=== PATIENT | male | born 1940 | race American Indian/Alaskan Native ===

== ENCOUNTER 2023-01-01 08:23 | Outpatient (CLI) | payer MEDICARE, OTHER, SELFPAY ==
[2023-01-01 09:03] LABS: Prothrombin Time 23.6 Seconds (11.1-14.7)
[2023-01-01 09:04] LABS: Partial Thromboplastin Time 42.9 SECONDS (22.3-36.8)
[2023-01-01 09:05] LABS: Anion Gap 12 mmol/L (8-16); Blood Urea Nitrogen 22 mg/dL (9-20); Calcium 9.9 mg/dL (8.4-10.2); Carbon Dioxide 26 mmol/L (22-30); Chloride 100 mmol/L (98-107); Estimated Glomerular Filt Rate 34; Glucose 108 mg/dL (65-110); Potassium 4.9 mmol/L (3.4-5.0); Sodium 138 mmol/L (137-145)
== END 2023-01-01 08:24 | disposition home or self-care (01) ==
LOC: ANHSURGERY 08:31
PROVIDERS: Anesthesiology; PCP Family Medicine; Visit Provider Urology
DX: N28.9 Disorder of kidney and ureter, unspecified (principal); R33.9 Retention of urine, unspecified; Z01.818 Encounter for other preprocedural examination
CPT/HCPCS: 36415; 80048; 85610; 85730

== ENCOUNTER 2023-01-06 01:45 | Day surgery (SDC) | payer MEDICARE, OTHER, SELFPAY ==
[2022-12-31 15:19] VITALS: BMI 29.2
--- NOTE | 2022-12-31 15:38 | PC.NURSE ---
PRE-OP INSTRUCTIONS, PLEASE READ CAREFULLY Report to the Outpatient Waiting Room, entrance under the green pavilion located off [facility], at time _1100_ on date _01/06/23_. Planned Procedure Time: _1 PM_. Time changes happen often and if your time is changed the preop area will call you the afternoon before. - You and your visitor will be asked to self-screen and do not enter if you have any COVID symptoms. - A mask is optional within the hospital at this time. Patients may have clear liquids (water, carbonated beverages, clear teas, apple juice) until 3 hours prior to surgery (1000 AM) with a maximum of 20 ounces. - No food from midnight until time of surgery Take the following medications with a SIP of water the morning of surgery: _OXYBUTYNIN, TAMSULOSIN_ DO NOT STOP ANY OF YOUR OTHER PRESCRIPTION MEDICATIONS PRIOR TO SURGERY ?EXCEPT THE FOLLOWING Medications to discontinue - _PT STATES STOPPING XARELTO 12/29/[address] WINSLOW'S INSTRUCTIONS_ Medications to discontinue per ANESTHESIA - _APPLE CIDER VINEGAR 3 DAYS PRIOR TO SURGERY, Date to take last dose 01/01/23_ Please no make-up, nail spanish, hairspray, perfume, deodorant, or body powder the day of surgery. No jewelry (including any body piercings) or valuables the day of surgery, leave them at home. Please take a shower or bath the night before, or the morning of, surgery with an antibacterial soap. Wear comfortable, loose fitting clothing. - Jewelry must be removed prior to entering the operating room. Rings and piercings that are not removed may be cut off. - The hospital will not accept responsibility for valuables. - Please leave all valuables, including medications, at home the day of surgery. If you are going home after surgery, a licensed entry driver operator must drive you home. - NO public transportation without another adult if you receive anesthesia. - We recommend that an adult stay with you for 24 hours following discharge. - We also recommend that you do not drive, make important decision, drink alcoholic beverages, or take any drugs that were not prescribed by your health care provider for at least 24 hours after your discharge time. Follow any additional instructions given to you from your surgeon. If you or anyone in your household have experienced Covid symptoms in the past week, please notify your surgeon or the nurse liaison at the phone number below for possible testing. Telephone instructions given to _PATIENT_and asked if any additional questions and then verbalized understanding. Patient advised to call surgeon office or pre surgery nurse liaison [phone] if any additional questions.
--- NOTE | 2022-12-31 15:45 | PC.NURSE ---
PRE-OP INSTRUCTIONS, PLEASE READ CAREFULLY Report to the Outpatient Waiting Room, entrance under the green pavilion located off [facility], at time _1100_ on date _01/06/23_. Planned Procedure Time: _1 PM_. Time changes happen often and if your time is changed the preop area will call you the afternoon before. - You and your visitor will be asked to self-screen and do not enter if you have any COVID symptoms. - A mask is optional within the hospital at this time. Patients may have clear liquids (water, carbonated beverages, clear teas, apple juice) until 3 hours prior to surgery with a maximum of 20 ounces. - No food from midnight until time of surgery Take the following medications with a SIP of water the morning of surgery: _OXYBUTYNIN, TAMSULOSIN, PAIN PILL IF NEEDED_ DO NOT STOP ANY OF YOUR OTHER PRESCRIPTION MEDICATIONS PRIOR TO SURGERY ?EXCEPT THE FOLLOWING Medications to discontinue _PT STATES STOPPING XARELTO 12/29/[address] WINSLOW'S INSTRUCTIONS_ Medications to discontinue per ANESTHESIA - _APPLE CIDER VINEGAR 3 DAYS PRIOR TO SURGERY, Date to take last dose 01/01/23_ Please no make-up, nail maltese, hairspray, perfume, deodorant, or body powder the day of surgery. No jewelry (including any body piercings) or valuables the day of surgery, leave them at home. Please take a shower or bath the night before, or the morning of, surgery with an antibacterial soap. Wear comfortable, loose fitting clothing. - Jewelry must be removed prior to entering the operating room. Rings and piercings that are not removed may be cut off. - The hospital will not accept responsibility for valuables. - Please leave all valuables, including medications, at home the day of surgery. If you are going home after surgery, a licensed school boat driver must drive you home. - NO public transportation without another adult if you receive anesthesia. - We recommend that an adult stay with you for 24 hours following discharge. - We also recommend that you do not drive, make important decision, drink alcoholic beverages, or take any drugs that were not prescribed by your health care provider for at least 24 hours after your discharge time. Follow any additional instructions given to you from your surgeon. If you or anyone in your household have experienced Covid symptoms in the past week, please notify your surgeon or the nurse liaison at the phone number below for possible testing. Telephone instructions given to _PATIENT_and asked if any additional questions and then verbalized understanding. Patient advised to call surgeon office or pre surgery nurse liaison [phone] if any additional questions.
--- NOTE | 2023-01-06 11:24 | WPDHPUPDATE1 ---
History and Physical Update Update Date/Time: 01/06/23 11:24 History and Physical has been reviewed, including an updated exam of the patient. There are NO changes in the patient's condition. Risks, benefits, and alternatives have been discussed and questions answered. Patient agrees to proceed with procedure. Proceed with cystoscopy
[2023-01-06 11:39] VITALS: BP 102/75; PULSE 97; RESP 18; TEMP 36.3; O2SAT 95
[2023-01-06] MEDS: LACTATED RINGERS 1,000 ML 30 ML IV CONT (11:51)
[2023-01-06 12:06] LABS: INR 1.1; Prothrombin Time 14.3 Seconds (11.1-14.7)
[2023-01-06 12:07] LABS: Partial Thromboplastin Time 28.8 SECONDS (22.3-36.8)
--- NOTE | 2023-01-06 12:44 | WPDHPUPDATE1 ---
History and Physical Update Update Date/Time: 01/06/23 12:44 History and Physical has been reviewed, including an updated exam of the patient. There are NO changes in the patient's condition. Risks, benefits, and alternatives have been discussed and questions answered. Patient agrees to proceed with procedure. Proceed with cystoscopy
[2023-01-06] MEDS: ceFAZolin 2 GM/D5W 50 ML 2 GM/50 ML BAG IVPB (13:02)
[2023-01-06] MEDS: LIDOCAINE HCL 2% GEL UROJET 10 ML PKG MUCOUS MEM (13:28)
--- NOTE | 2023-01-06 13:31 | P.OP_ITS ---
Procedure Note - Detailed Date of Procedure 01/06/23 Pre-op Diagnosis urinary retention Post-op Diagnosis Same (Mucosal irregularity-catheter irritation versus malignancy) Procedure Performed Cystoscopy with bladder biopsy and fulguration Surgeon Anirudh Herbert MD Anesthesia General Findings Prostate does not appear obstructive, irregularity posterior wall secondary to catheter versus malignancy Description of Procedure Patient is taken the operative suite correctly identified. Once anesthesia was obtained was placed in the dorsal lithotomy position and prepped and draped usual sterile fashion. Twenty-two Divehi scope inserted the bladder direct vision. There were no urethral strictures at this time. External sphincter was intact. Prostate does not appear overly obstructive at this point. Upon entering the bladder has marked trabeculation and some typical catheter related changes along the posterior wall. Given his prior hematuria and this irregularity we decided to biopsy this area. Cold cup biopsy was used to biopsy the irregularity. Ball electrode was used for hemostasis. Scope was removed. 2% viscous lidocaine was inserted urethra and a 16 Divehi Gil was placed with 10 cc in the balloon. He is taken recovery stable condition. Plan is to remove the catheter in the next day or 2. Further recommendations pending his pathology report. This completes dictation. Please send a copy of op note to my office. Estimated Blood Loss 0 Drains Yes Packing No Pathology Yes Complications No immediate complications Condition Stable Disposition PACU
[2023-01-06 13:40] VITALS: BP 98/60; PULSE 74; RESP 16; O2SAT 95
[2023-01-06] MEDS: fentaNYL CITRATE INJ (*CRX) 100 MCG/2 ML VIAL 25 MCG IV PUSH ×4 (13:54→14:00)
[2023-01-06 14:10] VITALS: BP 105/62; PULSE 79; RESP 14
[2023-01-06] MEDS: oxyCODONE HCL (*CRX) 5 MG TAB IR PO (14:28)
[2023-01-06 14:40] VITALS: BP 110/65; PULSE 88; RESP 14
[2023-01-06 15:00] VITALS: BP 108/66; PULSE 75; RESP 14
== END 2023-01-06 15:10 | disposition home or self-care (01) ==
PROVIDERS: Anesthesiology; PCP Family Medicine; Visit Provider Urology
PROC: 0TJB8ZZ Inspection of Bladder, Via Natural or Artificial Opening Endoscopic (ICD-10-PCS; CPT 52000; principal; 2023-01-06 13:00)
DX: C67.4 Malignant neoplasm of posterior wall of bladder (principal); R33.9 Retention of urine, unspecified; Z85.46 Personal history of malignant neoplasm of prostate; Z92.3 Personal history of irradiation
CPT/HCPCS: 52204; 36415; 85610; 85730; 88305; A9270; J0690; J2704; J3010; J7120

== ENCOUNTER 2023-01-09 00:07 | Emergency (ER) | payer MEDICARE, OTHER, SELFPAY ==
[2023-01-09] VITALS (25 sets, daily range): BP systolic 110–157; BP diastolic 41–81; PULSE 60–69; RESP 14–18; TEMP 36.4; O2SAT 93–100
--- NOTE | 2023-01-09 02:53 | ED.MALEGU ---
HPI - Male Genitourinary General Chief complaint: Urogenital-Male <Clarice Kaur PA-C - Last Filed: 01/09/23 02:57> Stated complaint: unable to urinate <Clarice Kaur PA-C - Last Filed: 01/09/23 02:57> Time Seen by Provider: 01/09/23 02:39 <Clarice Kaur PA-C - Last Filed: 01/09/23 02:57> History of Present Illness HPI Narrative: 82-year-old male whose chronically anticoagulated with Xarelto reports for evaluation for urinary retention bladder fullness, and bleeding from his urethra since 0030 today. Patient states approximately 1 week ago, he went to [facility] emergency department for urinary retention. He had a Gil placed at that time and followed up with Dr. Valeriano moore who performed a cystoscopy on the patient 2 days ago. Per the patient, the cystoscopy did not show any significant results to explain why the patient is having bladder retention. He had his Gil removed yesterday and was urinating the remainder the day without difficulty. States he woke up in the middle the night with significant bladder fullness and pain and bleeding from his urethra. He states he has passed multiple clots. He denies chest pain, flank pain, history of kidney stones, shortness of breath. <Clarice Kaur PA-C - Last Filed: 01/09/23 02:57> Related Data Home medications: Home Medications Medication Instructions Recorded Confirmed apple cider vinegar 500 mg tablet 500 mg PO BID 08/28/22 12/31/22 erenumab-aooe 140 mg/mL 140 mg subcut MONTHLY MIGRAINS 08/28/22 12/31/22 subcutaneous auto-injector (Aimovig Autoinjector) metoprolol succinate 25 mg 25 mg PO DAILY 08/28/22 12/31/22 tablet,extended release 24 hr rivaroxaban 20 mg tablet (Xarelto) 20 mg PO DAILY 08/28/22 12/31/22 tamsulosin 0.4 mg capsule 0.4 mg PO DAILY 08/28/22 12/31/22 hydrocodone-acetaminophen 1 tab-cap Q6H PRN Pain 12/31/22 12/31/22 oxybutynin chloride 5 mg tablet 5 mg PO TID 12/31/22 12/31/22 sulfamethoxazole 800 1 tablet BID 12/31/22 12/31/22 mg-trimethoprim 160 mg tablet <Clarice Kaur PA-C - Last Filed: 01/09/23 02:57> Allergies/Adverse reactions: Allergies Allergy/AdvReac Type Severity Reaction Status Date / Time No Known Allergies Allergy Mild Unverified 12/31/22 15:08 <Clarice Kaur PA-C - Last Filed: 01/09/23 02:57> Review of Systems Review of Systems: CONSTITUTIONAL: Denies fever, chills, or sweats. EYES: Denies visual changes, redness, or discharge. ENT: Denies rhinorrhea, congestion, sore throat, or otalgia. CARDIOVASCULAR: Denies chest pain, palpitations, or edema. RESPIRATORY: Denies cough or dyspnea. GASTROINTESTINAL: See HPI GENITOURINARY: See HPI SKIN: Denies rash or itching. MUSCULOSKELETAL: Denies back pain, joint pain, or myalgia. NEUROLOGIC: Denies headache, numbness, or weakness. PSYCHIATRIC: Denies anxiety or depression. <Clarice Kaur PA-C - Last Filed: 01/09/23 02:57> [facility] Past Medical History Medical History: Medical History Chronic kidney disease, stage 3a Hypertensive chronic kidney disease with stage 1 through stage 4 chronic kidney disease, or unspecified chronic kidney disease Mixed hyperlipidemia Personal history of malignant neoplasm of prostate Prediabetes Stage 2 chronic kidney disease Vertigo <Clarice Kaur PA-C - Last Filed: 01/09/23 02:57> Social History Social History: Social History Smoking status: Never smoker Tobacco type: cigarettes Second hand tobacco smoke exposure: No Alcohol intake: current Drinks per week: 8 Substance use: never Substance use type: does not use Lack of Transportation: No Lack of Food: Never True Current Housing: I Have Housing Concerned About Future Housing: No Difficulty Paying Gas/Electric Bills: No Difficulty Paying for Meds: No Currently Un
[2023-01-09 03:28] LABS: INR 1.8
[2023-01-09 03:29] LABS: Partial Thromboplastin Time 41.4 SECONDS (22.3-36.8)
[2023-01-09 03:45] LABS: Alanine Aminotransferase 23 U/L (6-50); Albumin Level 4.4 g/dL (3.5-5.1); Alkaline Phosphatase 98 U/L (38-126); Anion Gap 11 mmol/L (8-16); Aspartate Amino Transferase 37 U/L (17-59); Bilirubin,Total 0.5 mg/dL (0.2-1.3); Blood Urea Nitrogen 22 mg/dL (9-20); Calcium 9.7 mg/dL (8.4-10.2); Carbon Dioxide 26 mmol/L (22-30); Chloride 102 mmol/L (98-107); Estimated CRCL calculation 33 ml/min; Estimated Glomerular Filt Rate 45; Glucose 104 mg/dL (65-110); Potassium 4.4 mmol/L (3.4-5.0); Sodium 139 mmol/L (137-145)
[2023-01-09 03:49] LABS: Basophils Absolute Auto 0.1 K/mm3 (0.0-0.1); Basophils Percent Auto 0.7 % (0.2-1.2); Eosinophils Absolute Auto 0.3 K/mm3 (0-0.3); Eosinophils Percent Auto 4.2 % (0-4.4); Hematocrit 39.1 % (42.0-52.0); Hemoglobin 12.5 g/dL (14.0-18.0); Immature Granulocyte Absolute 0.08 K/mm3 (0.00-0.031); Immature Granulocyte Percent A 1.1 % (0-0.5); Immature Platelet Fraction Pct 0.9 % (0.9-11.2); Lymphocytes Absolute Auto 0.57 K/mm3 (0.9-3.2); Lymphocytes Percent Auto 7.7 % (18.3-44.2); Mean Corpuscular Hemoglobin 28.3 pg (26-34); Mean Corpuscular Volume 88.7 fl (80-100); Mean Platelet Volume 8.1 fl (7.4-10.4); Monocytes Absolute Auto 0.6 K/mm3 (0.1-0.6); Monocytes Percent Auto 8.1 % (2.6-8.5); Neutrophils Absolute Auto 5.8 K/mm3 (1.3-6.7); Neutrophils Percent Auto 78.2 % (45.5-73.1); Platelet Count Result 364 k/mm3 (150-375); Red Blood Count 4.41 M/mm3 (4.6-6.20); Red Cell Distribution Width 13.2 % (11.5-14.5); White Blood Count 7.4 K/mm3 (4.5-10.0)
[2023-01-09 04:00] LABS: Bacteria Urine None Seen /hpf; Need Manual Microscopic Reviewed; Non Pathogenic Casts 0-2; RBC Urine >100 /hpf (0-2); Squamous Epithelial Cell Urine None seen /hpf (Few); WBC Urine 0-5 /hpf
[2023-01-09 04:03] LABS: Appearance Urine Cloudy (Clear); Bilirubin Urine Negative (Negative); Blood Urine 3+ (Negative); Color Urine Orange (Yellow); Glucose Urine UA Negative (Negative); Ketones Urine Negative (Negative); Leukocyte Esterase Ur Trace LEU/UL (Negative); Nitrate Urine Negative (Negative); Protein Urine 2+ mg/dL (Negative); Specific Grav Ur 1.009 (1.001-1.035)
[2023-01-09 04:07] LABS: Add Urine Microscopic? YES
== END 2023-01-09 05:51 | disposition home or self-care (01) ==
PROVIDERS: Emergency Provider Preventive Medicine Aerospace Medicine; PCP Family Medicine
DX: R33.9 Retention of urine, unspecified (principal); R31.0 Gross hematuria; I12.9 Hypertensive chronic kidney disease with stage 1 through stage 4 chronic kidney disease, or unspecified chronic kidney disease; N18.31 Chronic kidney disease, stage 3a; E78.2 Mixed hyperlipidemia; Z85.46 Personal history of malignant neoplasm of prostate
CPT/HCPCS: 36415; 51700; 80053; 81001; 85025; 85055; 85610; 85730; 99283

== ENCOUNTER 2023-01-29 11:34 | Outpatient (CLI) | payer MEDICARE, OTHER, SELFPAY ==
--- NOTE | 2023-01-29 11:50 | ECG_ITS ---
Measurements Intervals [place] Rate: 76 P: GA: 0 QRS: -66 QRSD: 142 T: 13 QT: 369 QTc: 417 Interpretive Statements ATRIAL FIBRILLATION RIGHT BUNDLE BRANCH BLOCK [120+ ms QRS DURATION, UPRIGHT V1, 40+ ms S IN I/aVL/V4/V5/V6] LEFT ANTERIOR FASCICULAR BLOCK [QRS AXIS <= -45, QR IN I, RS IN II] NO PREVIOUS ECG AVAILABLE FOR COMPARISON Electronically Signed On 01-29-2023 19:15:57 [facility] [facility] by Radha Cedillo M.D.
[2023-01-29 13:11] LABS: INR 1.5
[2023-01-29 13:12] LABS: Partial Thromboplastin Time 36.4 SECONDS (22.3-36.8)
[2023-01-29 13:15] LABS: Bacteria Urine 1+ /hpf; RBC Urine >100 /hpf (0-2); Squamous Epithelial Cell Urine Occasional /hpf (Few); WBC Urine 51-100 /hpf
[2023-01-29 13:17] LABS: Specific Grav Ur 1.015 (1.001-1.035)
[2023-01-29 13:18] LABS: Appearance Urine Clear (Clear); Blood Urine 3+ (Negative); Color Urine Light Yellow (Yellow); Glucose Urine UA Negative (Negative); Ketones Urine Negative (Negative); Nitrate Urine Negative (Negative); Protein Urine 1+ mg/dL (Negative)
[2023-01-29 13:19] LABS: Bilirubin Urine Negative (Negative); Leukocyte Esterase Ur 1+ LEU/UL (Negative); Urobilinogen Urine 0.2 mg/dL (<2.0)
[2023-01-29 13:20] LABS: Add Urine Microscopic? YES
== END 2023-01-29 11:35 | disposition home or self-care (01) ==
LOC: ANHSURGERY 11:39
PROVIDERS: PCP Family Medicine; Visit Provider Urology
DX: C67.9 Malignant neoplasm of bladder, unspecified (principal); E78.2 Mixed hyperlipidemia; R31.9 Hematuria, unspecified; Z01.818 Encounter for other preprocedural examination
CPT/HCPCS: 36415; 81001; 85610; 85730; 87086; 87088; 93005

== ENCOUNTER 2023-02-03 01:23 | Day surgery (SDC) | payer MEDICARE, OTHER, SELFPAY ==
[2023-01-26 15:18] VITALS: BMI 29.0
--- NOTE | 2023-01-26 15:32 | PC.NURSE ---
Addendum entered by Lynda Herr RN 01/26/23 15:35: PT AWARE HE CAN TAKE TRAMADOL AM OF SURGERY IN NEEDED Original Note: PRE-OP INSTRUCTIONS, PLEASE READ CAREFULLY Report to the Outpatient Waiting Room, entrance under the green pavilion located off [facility], at time _0600_ on date _02/03/23_. Planned Procedure Time: _0730_. Time changes happen often and if your time is changed the preop area will call you the afternoon before. - You and your visitor will be asked to self-screen and do not enter if you have any COVID symptoms. - A mask is optional within the hospital at this time. Patients may have clear liquids (water, carbonated beverages, clear teas, apple juice) until 3 hours prior to surgery with a maximum of 20 ounces. - No food from midnight until time of surgery Take the following medications with a SIP of water the morning of surgery: _NONE_ DO NOT STOP ANY OF YOUR OTHER PRESCRIPTION MEDICATIONS PRIOR TO SURGERY ?EXCEPT THE FOLLOWING Medications to discontinue per DR. WINSLOW - _XARELTO 2 DAYS PRIOR TO SURGERY (PER PATIENT), Date to take last dose 01/31/23_ Medications to discontinue per ANESTHESIA -_APPLE CIDER VINEGAR 3 DAYS PRIOR TO SURGERY, Date to take last dose 01/30/23_ Please no make-up, nail maltese, hairspray, perfume, deodorant, or body powder the day of surgery. No jewelry (including any body piercings) or valuables the day of surgery, leave them at home. Please take a shower or bath the night before, or the morning of, surgery with an antibacterial soap. Wear comfortable, loose fitting clothing. Children are encouraged to wear pajamas. - Jewelry must be removed prior to entering the operating room. Rings and piercings that are not removed may be cut off. - The hospital will not accept responsibility for valuables. - Please leave all valuables, including medications, at home the day of surgery. If you are going home after surgery, a licensed powder truck driver must drive you home. - NO public transportation without another adult if you receive anesthesia. - We recommend that an adult stay with you for 24 hours following discharge. - We also recommend that you do not drive, make important decision, drink alcoholic beverages, or take any drugs that were not prescribed by your health care provider for at least 24 hours after your discharge time. Follow any additional instructions given to you from your surgeon. If you or anyone in your household have experienced Covid symptoms in the past week, please notify your surgeon or the nurse liaison at the phone number below for possible testing. Telephone instructions given to _PATIENT_and asked if any additional questions and then verbalized understanding. Patient advised to call surgeon office or pre surgery nurse liaison [phone] if any additional questions.
[2023-02-03] VITALS (10 sets, daily range): BP systolic 117–143; BP diastolic 64–85; PULSE 67–89; RESP 12–22; TEMP 36.1–36.2; O2SAT 97–100
[2023-02-03] MEDS: LACTATED RINGERS 1,000 ML 30 ML IV CONT ×2 (06:45→08:56)
--- NOTE | 2023-02-03 07:02 | WPDANESEPPF ---
Anes - Initial Pre Proc Eval Procedure: Operation Date: 02/03/23 07:30 Proposed Procedures p Trans Urethral Resection Bladder Tumor - Anirudh Herbert MD Date/Time: 02/03/23 07:02 Surgeon: Anirudh Herbert MD Pre Op Diagnosis: bladder cancer Patient Data Age: 82 Gender: M Height: 1.7 m Weight: 84.2 kg Allergies Allergy/AdvReac Type Severity Reaction Status Date / Time No Known Allergies Allergy Mild Unverified 01/26/23 15:15 Home Medications Medication Instructions Recorded Confirmed Type apple cider vinegar 500 mg tablet 500 mg PO BID 08/28/22 01/26/23 History erenumab-aooe 140 mg/mL 140 mg subcut MONTHLY MIGRAINS 08/28/22 01/26/23 History subcutaneous auto-injector (Aimovig Autoinjector) metoprolol succinate 25 mg 25 mg PO DAILY 08/28/22 01/26/23 History tablet,extended release 24 hr rivaroxaban 20 mg tablet (Xarelto) 20 mg PO DAILY 08/28/22 01/26/23 History tamsulosin 0.4 mg capsule 0.4 mg PO DAILY 08/28/22 01/26/23 History rosuvastatin 40 mg tablet 40 mg PO DAILY 90 days #90 tabs 12/01/22 01/26/23 Rx oxybutynin chloride 5 mg tablet 5 mg PO TID 12/31/22 01/26/23 History tramadol 50 mg tablet 50 mg PO Q6H PRN pain #20 tabs 01/06/23 01/26/23 Rx Patient hx anesthesia problems: none Family hx anesthesia problems: none Results Review: All pre-operative results and documents have been reviewed as part of the pre-operative evaluation. [facility] Past Medical History Medical History Chronic kidney disease, stage 3a Hypertensive chronic kidney disease with stage 1 through stage 4 chronic kidney disease, or unspecified chronic kidney disease Mixed hyperlipidemia Personal history of malignant neoplasm of prostate Prediabetes Stage 2 chronic kidney disease Vertigo Social History Social History Smoking status: Never smoker Tobacco type: cigarettes Second hand tobacco smoke exposure: No Alcohol intake: current Drinks per week: 8 Substance use: never Substance use type: does not use Lack of Transportation: No Lack of Food: Never True Current Housing: I Have Housing Concerned About Future Housing: No Difficulty Paying Gas/Electric Bills: No Difficulty Paying for Meds: No Currently Unemployed: No Education: Bachelor's Degree Difficulty w/ Childcare or Family Care: No Living arrangements: with family Occupation/Education: retired Gender identity (if verbalized by the patient): Male Sexual Orientation (if Verbalized by the Patient): Straight or Heterosexual Spiritual care concerns: No Anes - Eval Final PreProcedure Day of Procedure 02/03/23 07:02 Patient weight: overweight Heart: regular rate and rhythm Lungs: clear to auscultation Airway: Mallampati scale class II Neurological: alert and oriented Last oral intake: >/= 8 hours ASA classification: IV Emergent: no Anesthetic plan: proceed Anesthesia type and monitoring: general LMA and standard monitoring Results Review: All pre-operative results and documents have been reviewed as part of the pre-operative evaluation. Informed Consent: The patient's anesthetic plan and its attendant risks and benefits were discussed with the patient/family/POA. Questions were solicited and answers provided to the satisfaction of the patient/family/POA.
--- NOTE | 2023-02-03 07:17 | WPDHPUPDATE1 ---
History and Physical Update Update Date/Time: 02/03/23 07:17 History and Physical has been reviewed, including an updated exam of the patient. There are NO changes in the patient's condition. Risks, benefits, and alternatives have been discussed and questions answered. Patient agrees to proceed with procedure. Proceed with transurethral resection of bladder tumor.
[2023-02-03 07:23] LABS: Partial Thromboplastin Time 27.7 SECONDS (22.3-36.8); Prothrombin Time 14.2 Seconds (11.1-14.7)
[2023-02-03] MEDS: ceFAZolin 2 GM/D5W 50 ML 2 GM/50 ML BAG IVPB (07:26)
[2023-02-03] MEDS: LIDOCAINE HCL 2% GEL UROJET 10 ML PKG MUCOUS MEM (07:35)
--- NOTE | 2023-02-03 08:06 | P.OP_ITS ---
Procedure Note - Detailed Date of Procedure 02/03/23 Pre-op Diagnosis bladder lesion, hematuria Post-op Diagnosis Same Procedure Performed Transurethral resection of bladder lesion greater than 5 cm Surgeon Anirudh Herbert MD Anesthesia General Description of Procedure Patient is taken to the operative suite correctly identified. Once anesthesia was obtained was placed in dorsal lithotomy position and prepped and draped usual sterile fashion. Twenty-four Croatian scope was inserted the bladder. There were no urethral strictures. Prostate nonobstructive. The bladder itself has some mild diffuse erythema but more impressively is an area along the left floor and lateral wall, which is irregular in nature friable and raised. I resected this area. Was greater than 5 cm. There appeared to be good hemostasis at termination procedure. I did use a rollerball to fulgurate the edges and any little vessels that I saw. Specimen was sent to pathology. 2% viscous lidocaine was inserted into urethra. [address] was placed 10 cc in the balloon. He is taken recovery stable condition. Will trying get him home today with Gil catheter and have it removed or Thursday. Further recommendations will be made pending the final pathology report this completes dictation on this patient. Please send a copy of this op note to my office. Estimated Blood Loss 0 Drains Yes ([address]) Packing No Pathology Yes Complications No immediate complications Condition Stable Disposition PACU
[2023-02-03] MEDS: fentaNYL CITRATE INJ (*CRX) 100 MCG/2 ML VIAL 25 MCG IV PUSH ×8 (08:25→09:24)
--- NOTE | 2023-02-03 08:44 | SUR.PHASEI ---
0841: Simple mask removed.
[2023-02-03] MEDS: oxyCODONE HCL (*CRX) 5 MG TAB IR PO (09:30)
== END 2023-02-03 10:38 | disposition home or self-care (01) ==
PROVIDERS: PCP Family Medicine; Visit Provider Urology
PROC: 0TBB8ZZ Excision of Bladder, Via Natural or Artificial Opening Endoscopic (ICD-10-PCS; CPT 52240; principal; 2023-02-03 07:30)
DX: C67.8 Malignant neoplasm of overlapping sites of bladder (principal); I12.9 Hypertensive chronic kidney disease with stage 1 through stage 4 chronic kidney disease, or unspecified chronic kidney disease; N18.31 Chronic kidney disease, stage 3a; E78.2 Mixed hyperlipidemia; R73.03 Prediabetes; Z85.46 Personal history of malignant neoplasm of prostate; Z79.01 Long term (current) use of anticoagulants
CPT/HCPCS: 52240; 36415; 85610; 85730; 88305; A9270; J0690; J1100; J2405; J2704; J3010; J7120

== ENCOUNTER 2023-03-12 08:48 | Observation (INO) | payer MEDICARE, OTHER, SELFPAY ==
[2023-03-12] VITALS (26 sets, daily range): BP systolic 121–152; BP diastolic 51–86; PULSE 60–86; RESP 11–23; TEMP 36–36.4; O2SAT 94–100; BMI 29.9
--- NOTE | ~2023-03-12 | XR_ITS ---
EXAMINATION: XR chest 1V portable DATE: 03/12/2023 09:31 INDICATION: Chest pressure. TECHNIQUE: A single frontal view of the chest was obtained. COMPARISON: Chest 2 views 12/03/2015 FINDINGS: There is mild atelectasis in the lower lung zones. No pleural effusion or pneumothorax. The heart size is normal. There is a left chest wall pacer with leads in the right atrium and right vent ricle. IMPRESSION: 1. Mild atelectasis in the lower lung zones. Reviewed, dictated and finalized at location E. NCIAL ADMINISTRATOR
--- NOTE | ~2023-03-12 | CT_ITS ---
EXAMINATION: CTA chest PE protocol DATE: 03/12/2023 11:50 INDICATION: Chest pressure. Shortness of breath. TECHNIQUE: Computed tomography angiography (CTA) of the chest was performed with 100 mL Omnipaque-350 intravenous contrast timed to evaluate the pulmonary arteries. Coronal maximum intensity projection 3D-reconstructions were created by the technologist. Automated exposure control and iterative reconst ruction technique were employed. The dose-length product was 655.71 mGy-cm. COMPARISON: None. FINDINGS: The lungs demonstrate mild atelectasis. There is mild bronchiectasis in the inferior lungs. There is mucous plugging in the lower lobes. No pleural effusion. The heart size is normal. No peric ardial effusion. There are coronary artery calcifications. There is no pulmonary embolus. There are b ridging endplate osteophytes at multiple levels in the spine, consistent with diffuse idiopathic skel etal hyperostosis (DISH). IMPRESSION: 1. No pulmonary embolus. 2. Mild bronchiectasis and mucous plugging in the inferior lungs. Reviewed, dictated and finalized at location E. E CAPTAIN
--- NOTE | 2023-03-12 08:57 | ECG_ITS ---
Measurements Intervals [place] Rate: 60 P: 163 DC: 170 QRS: -46 QRSD: 142 T: -2 QT: 440 QTc: 440 Interpretive Statements ELECTRONIC ATRIAL PACEMAKER RIGHT BUNDLE BRANCH BLOCK LEFT ANTERIOR FASCICULAR BLOCK CANNOT RULE OUT SEPTAL INFARCT, AGE INDETERMINATE BASELINE ARTIFACT- I, II, AVR, V6 ABNORMAL ECG COMPARED TO ECG 01/29/2023 12:11:17 ELECTRONIC ATRIAL PACEMAKER NOW PRESENT Electronically Signed On 03-12-2023 12:16:13 [employer] by Chun Alejo D.O.
[2023-03-12 09:20] LABS: Basophils Absolute Auto 0.1 K/mm3 (0.0-0.1); Eosinophils Absolute Auto 0.3 K/mm3 (0-0.3); Eosinophils Percent Auto 6.5 % (0-4.4); Hematocrit 34.7 % (42.0-52.0); Hemoglobin 10.3 g/dL (14.0-18.0); Immature Granulocyte Absolute 0.02 K/mm3 (0.00-0.031); Immature Granulocyte Percent A 0.4 % (0-0.5); Lymphocytes Absolute Auto 0.81 K/mm3 (0.9-3.2); Lymphocytes Percent Auto 15.9 % (18.3-44.2); Mean Corpuscular HGB Conc 29.7 g/dl (32-36); Mean Corpuscular Hemoglobin 27.1 pg (26-34); Mean Corpuscular Volume 91.3 fl (80-100); Mean Platelet Volume 8.4 fl (7.4-10.4); Monocytes Absolute Auto 0.4 K/mm3 (0.1-0.6); Monocytes Percent Auto 7.5 % (2.6-8.5); Neutrophils Absolute Auto 3.5 K/mm3 (1.3-6.7); Neutrophils Percent Auto 68.7 % (45.5-73.1); Platelet Count Result 277 k/mm3 (150-375); Red Cell Distribution Width 14.5 % (11.5-14.5); White Blood Count 5.1 K/mm3 (4.5-10.0)
[2023-03-12 09:24] LABS: Alanine Aminotransferase 20 U/L (6-50); Albumin Level 4.2 g/dL (3.5-5.1); Alkaline Phosphatase 80 U/L (38-126); Anion Gap 7 mmol/L (8-16); Aspartate Amino Transferase 35 U/L (17-59); Bilirubin,Total 0.4 mg/dL (0.2-1.3); Blood Urea Nitrogen 18 mg/dL (9-20); Calcium 9.1 mg/dL (8.4-10.2); Carbon Dioxide 28 mmol/L (22-30); Chloride 108 mmol/L (98-107); Estimated Glomerular Filt Rate > 60; Glucose 91 mg/dL (65-110); Lipase 153 U/L (23-300); Potassium 4.2 mmol/L (3.4-5.0); Sodium 143 mmol/L (137-145)
[2023-03-12 09:35] LABS: Troponin I < 0.012 ng/mL (0.000-0.034)
[2023-03-12 09:37] LABS: Platelet Estimate Adequate (Adequate)
[2023-03-12 09:39] LABS: Anisocytosis 1+ (NORMAL); Ovalocytes 1+ (NORMAL); Schistocytes None Seen (NORMAL)
[2023-03-12 09:40] LABS: INR 1.9; Partial Thromboplastin Time 38.9 SECONDS (22.3-36.8); Prothrombin Time 23.4 Seconds (11.1-14.7)
--- NOTE | 2023-03-12 11:03 | ED.GENADULT ---
HPI - General Adult General Chief complaint: Chest Pain Stated complaint: chest pain Time Seen by Provider: 03/12/23 10:42 History of Present Illness HPI narrative: Norman Yin is an 82 y/o male with PMHx of Afib s/p ablation 11 years ago/ HTN/ HLD / pacemaker / NO hx of [place]- he states that he was in his normal state of health this AM and he finished eating breakfast while sitting he started to have mid chest pressure at 0845 rating at severity of 7-8, he thought maybe he was in Afib and he felt SOB. He states that he went and sat in his recliner to see if resting there would improve the pain, it didn't so he called 911 - he states on the way here the pain started to improve on its own. He now denies any chest pain/ SOB/ or any symptoms and states he feels well. Related Data Home Medications Medication Instructions Recorded Confirmed apple cider vinegar 500 mg tablet 500 mg PO BID 08/28/22 03/02/23 erenumab-aooe 140 mg/mL 140 mg subcut MONTHLY MIGRAINS 08/28/22 03/02/23 subcutaneous auto-injector (Aimovig Autoinjector) metoprolol succinate 25 mg 25 mg PO DAILY 08/28/22 03/02/23 tablet,extended release 24 hr rivaroxaban 20 mg tablet (Xarelto) 20 mg PO DAILY 08/28/22 03/02/23 tamsulosin 0.4 mg capsule 0.4 mg PO DAILY 08/28/22 03/02/23 Allergies Allergy/AdvReac Type Severity Reaction Status Date / Time No Known Allergies Allergy Mild Unverified 03/05/23 09:17 Review of Systems Review of Systems: CONSTITUTIONAL: Denies fever, chills, or sweats. EYES: Denies visual changes, redness, or discharge. ENT: Denies rhinorrhea, congestion, sore throat, or otalgia. CARDIOVASCULAR: States he started to have chest pain this AM at around 0845 that is now gone. denies palpitations, or edema. RESPIRATORY: Denies cough, reports feeling SOB during the chest pressure/ denies SOB at this time. GASTROINTESTINAL: Denies abdominal pain, nausea, vomiting, or diarrhea. GENITOURINARY: Denies dysuria or hematuria. SKIN: Denies rash or itching. MUSCULOSKELETAL: Denies back pain, joint pain, or myalgia. NEUROLOGIC: Denies headache, numbness, dizziness, or weakness. PSYCHIATRIC: Denies anxiety or depression. [facility] Past Medical History Medical History Chronic kidney disease, stage 3a Hypertensive chronic kidney disease with stage 1 through stage 4 chronic kidney disease, or unspecified chronic kidney disease Mixed hyperlipidemia Personal history of malignant neoplasm of prostate Prediabetes Stage 2 chronic kidney disease Vertigo Social History Social History Smoking status: Never smoker Tobacco type: cigarettes Second hand tobacco smoke exposure: No Alcohol intake: current Drinks per week: 8 Substance use: never Substance use type: does not use Lack of Transportation: No Lack of Food: Never True Current Housing: I Have Housing Concerned About Future Housing: No Difficulty Paying Gas/Electric Bills: No Difficulty Paying for Meds: No Currently Unemployed: No Education: Bachelor's Degree Difficulty w/ Childcare or Family Care: No Living arrangements: with family Occupation/Education: retired Gender identity (if verbalized by the patient): Male Sexual Orientation (if Verbalized by the Patient): Straight or Heterosexual Spiritual care concerns: No Exam Narrative: GENERAL: Well-appearing, well-nourished, and in no acute distress. HEAD: Normocephalic, atraumatic. EYES: PERRLA and EOMI. ENT: Nares clear, no rhinorrhea or epistaxis. Mucous membranes moist. Oropharynx without tonsillar hypertrophy exudate or other lesions. NECK: Supple. No adenopathy or masses. No carotid bruits or JVD CHEST: Clear to auscultation. No respiratory distress. No wheezes rales or rhonchi HEART: Regular rate and rhythm. No murmur heard. Normal peripheral pulses. ABDOMEN: Soft, nontender, nondistended, norm
[2023-03-12 11:21] LABS: Influenza A QL RT-PCR Negative (Negative); Influenza B QL RT-PCR Negative (Negative); SARS-CoV-2 RNA PCR Negative (Negative)
--- NOTE | 2023-03-12 12:08 | ECG_ITS ---
Measurements Intervals [place] Rate: 63 P: 121 WV: 174 QRS: -47 QRSD: 143 T: -8 QT: 444 QTc: 455 Interpretive Statements ELECTRONIC ATRIAL PACEMAKER RIGHT BUNDLE BRANCH BLOCK LEFT ANTERIOR FASCICULAR BLOCK ABNORMAL ECG COMPARED TO ECG 03/12/2023 12:11:57 NO SIGNIFICANT CHANGES Electronically Signed On 03-12-2023 15:28:54 [employer]OTTON PACKER by Chun Alejo D.O.
[2023-03-12 12:39] LABS: Troponin I < 0.012 ng/mL (0.000-0.034)
--- NOTE | 2023-03-12 15:26 | ECG_ITS ---
Rate ID QRSd QT QTc P QRS T Severity 63 174 143 444 455 121 -47 -8 Abnormal ECG ELECTRONIC ATRIAL PACEMAKER RIGHT BUNDLE BRANCH BLOCK LEFT ANTERIOR FASCICULAR BLOCK ABNORMAL ECG Electronically Signed On 03-12-2023 15:28:54 PRODUCT CRAFTSMAN by Chun Alejo D.O. COMPARED TO ECG 03/12/2023 12:11:57 NO SIGNIFICANT CHANGES MTDD
--- NOTE | 2023-03-12 15:29 | ADMGEN ---
This patient, Norman Yin, was admitted to IMU Room 209-. Patient/family oriented to hospital policies and general routines including ID bracelet, bed and alarms, visiting hours, pain management, procedures, bathroom and other care routines, personal items, smoking policy, room service/diet, and visiting hours. Information on how to activate the Rapid Response Team has been discussed. Patient/Family are encouraged to report perceived risks to care and to ask questions if they do not understand what they are told or what they should do.
[2023-03-12 15:36] LABS: Troponin I < 0.012 ng/mL (0.000-0.034)
--- NOTE | 2023-03-12 15:55 | PM.IMHP ---
H&P: HPI History of Present Illness Date/Time: 03/12/23 15:55 Chief Complaint: Chest Pain Narrative: 82 y/o M presents here with chest pain and SOB with PMH CKD S3a, HLD, prostate cancer s/p radiation and hormone therapy, prediabetic, migraine associated vertigo, AFib, bladder cancer, and ALLYSON using CPAP. Patient presented here from home via EMS for midsternal chest pain. Chest pain started while patient was sitting around 7:30 am. Described the chest pain as midsternal, pressure, 8/10 and nonradiating. Experienced associated shortness of breath and palpitations. Symptoms originally consistent with an episode of AFib, he reports these typically resolve without incident if he sits quietly and his pacemaker will eventually take over . However chest pain continue to worsen in severity and lasted approximately 45 mins to 1 hr. CP lasted until EMS arrived and he was given aspirin and dose of sublingual nitro. Chest pain then reduced to 2/10. While in route to the ED, EMS is telemetry showed multiple extra beats according to patient. Chest pain, shortness a breath, palpitations have since fully resolved. He denied any nausea, vomiting, diaphoresis, or presyncopal feelings. Does report he has been more sedentary as of late due to his current bladder cancer, reports urology recommended he not be as active to avoid excessive bleeding. Currently has a scheduled cystoscopy in 2 weeks for evaluation and injection of tumor. Also denying any increased swelling to his lower extremities or abdomen, no new exercise intolerance, no cough or productive cough. After arrival to the ED, workup revealed troponin < 0.012 x3, EKG showed electronic atrial pacemaker, right bundle-branch block, and left anterior fascicular block. CXR showed mild atelectasis in the lower lung zones. CTA of the chest showed no PE and mild bronchiectasis and mucous plugging in the inferior lungs. Review of Systems Review of Systems: All systems reviewed & are unremarkable except as noted in HPI and below [facility] Past Medical History Medical History (Updated 03/12/23 @ 16:44 by Karolina Mcmanus, EDOUARD) Bladder cancer high grade papillary urothelial carcinoma, noninvasive Chronic kidney disease, stage 3a Hypertensive chronic kidney disease with stage 1 through stage 4 chronic kidney disease, or unspecified chronic kidney disease Mixed hyperlipidemia Personal history of malignant neoplasm of prostate Prediabetes Stage 2 chronic kidney disease Vertigo migraine associated Surgical History Surgical History History of cardiac pacemaker 2020 Social History Social History Smoking status: Never smoker Tobacco type: cigarettes Second hand tobacco smoke exposure: No Alcohol intake: current Drinks per week: 7 Substance use: never Substance use type: does not use Do You Feel Safe in your Home?: Yes Lack of Transportation: No Lack of Food: Never True Current Housing: I Have Housing Concerned About Future Housing: No Difficulty Paying Gas/Electric Bills: No Difficulty Paying for Meds: No Currently Unemployed: No Education: High School Diploma/GED Difficulty w/ Childcare or Family Care: No Living arrangements: with family Occupation/Education: retired Gender identity (if verbalized by the patient): Male Sexual Orientation (if Verbalized by the Patient): Straight or Heterosexual Spiritual care concerns: No Meds Home Medications and Allergies Home Medications Medication Instructions Recorded Confirmed Type erenumab-aooe 140 mg/mL 140 mg subcut MONTHLY MIGRAINS 08/28/22 03/12/23 History subcutaneous auto-injector (Aimovig Autoinjector) metoprolol succinate 25 mg 25 mg PO BID 08/28/22 03/12/23 History tablet,extended release 24 hr rivaroxaban 20 mg tablet (Xarelto) 20 mg PO DAILY 08/28/22 03/12/23 History
[2023-03-12] MEDS: RIVAROXABAN 20 MG TABLET PO (17:14)
[2023-03-12] MEDS: guaiFENesin 12 HR 600 MG TABCR PO (20:03)
[2023-03-12] MEDS: TAMSULOSIN HCL 0.4 MG CAPSULE PO (20:03)
[2023-03-12] MEDS: METOPROLOL SUCCINATE EXT REL 25 MG TABCR PO (20:03)
[2023-03-12] MEDS: DORNASE ALFA INH SOLN 1 MG/ML 2.5 ML AMP 2.5 MG INHALATION (20:16)
[2023-03-13] VITALS (9 sets, daily range): BP systolic 120–130; BP diastolic 50–55; PULSE 61–108; RESP 18–20; TEMP 36–36.4; O2SAT 96–98
[2023-03-13 04:53] LABS: Basophils Absolute Auto 0.1 K/mm3 (0.0-0.1); Eosinophils Absolute Auto 0.4 K/mm3 (0-0.3); Hematocrit 32.4 % (42.0-52.0); Hemoglobin 9.8 g/dL (14.0-18.0); Immature Granulocyte Absolute 0.05 K/mm3 (0.00-0.031); Lymphocytes Absolute Auto 0.79 K/mm3 (0.9-3.2); Lymphocytes Percent Auto 15.4 % (18.3-44.2); Mean Corpuscular HGB Conc 30.2 g/dl (32-36); Mean Corpuscular Hemoglobin 27.3 pg (26-34); Mean Corpuscular Volume 90.3 fl (80-100); Mean Platelet Volume 8.5 fl (7.4-10.4); Monocytes Absolute Auto 0.4 K/mm3 (0.1-0.6); Monocytes Percent Auto 7.4 % (2.6-8.5); Neutrophils Absolute Auto 3.5 K/mm3 (1.3-6.7); Neutrophils Percent Auto 68.2 % (45.5-73.1); Platelet Count Result 264 k/mm3 (150-375); Red Blood Count 3.59 M/mm3 (4.6-6.20); Red Cell Distribution Width 14.1 % (11.5-14.5); White Blood Count 5.1 K/mm3 (4.5-10.0)
[2023-03-13 05:10] LABS: Alanine Aminotransferase 19 U/L (6-50); Albumin Level 3.2 g/dL (3.5-5.1); Alkaline Phosphatase 70 U/L (38-126); Anion Gap 7 mmol/L (8-16); Aspartate Amino Transferase 27 U/L (17-59); Bilirubin,Total 0.4 mg/dL (0.2-1.3); Blood Urea Nitrogen 18 mg/dL (9-20); Calcium 8.8 mg/dL (8.4-10.2); Carbon Dioxide 24 mmol/L (22-30); Chloride 109 mmol/L (98-107); Estimated CRCL calculation 55 ml/min; Estimated Glomerular Filt Rate > 60; Glucose 95 mg/dL (65-110); Magnesium 2.1 mg/dL (1.6-2.3); Potassium 4.4 mmol/L (3.4-5.0); Sodium 140 mmol/L (137-145)
[2023-03-13] MEDS: guaiFENesin 12 HR 600 MG TABCR PO (09:01)
[2023-03-13] MEDS: METOPROLOL SUCCINATE EXT REL 25 MG TABCR PO (09:01)
[2023-03-13] MEDS: TAMSULOSIN HCL 0.4 MG CAPSULE PO (09:02)
--- NOTE | 2023-03-13 12:05 | PM.CNCAR ---
Assessment and Plan Assessment and plan (1) Chest pain: Qualifiers: Chest pain type: unspecified Qualified Code(s): R07.9 - Chest pain, unspecified Code(s): R07.9 - Chest pain, unspecified Status: Acute Plan This is an 82-year-old man with a well-known history of paroxysmal atrial fibrillation. He presented to the hospital with some palpitations and chest discomfort occurred at home which he recognizes as his typical symptoms of atrial fib. The symptoms had resolved on the way to the hospital and he has not had any atrial fib since he has been on telemetry here. His ECG and enzymes are negative for any evidence of acute coronary syndrome in the patient tells me that he was found not to have disease coronary arteries angiographically at the time of his initial AFib evaluation out at [facility]. He is not reporting any exertional symptoms to suggest ischemic heart disease. In my opinion he does not require an ischemia evaluation given the lack of objective evidence of ACS and his history of a negative angiogram in the past. He can be discharged in my opinion for follow-up with his PCP and his felting machine operator. Will not schedule follow-up in my office as that would be redundant Serg Orellana MD [facility] History of Present Illness History of Present Illness Consult date/time: 03/13/23 12:05 Reason For Visit: chest pain Narrative: This is a very pleasant 82-year-old man with a history of atrial fibrillation who is being seen at the request of the hospitalist because of chest pain. The patient states that he was in his usual state of quite good health at his age when yesterday at his home he started is had experienced a sense of pressure in the center of his chest as well as tachycardia and palpitations. He recognizes this as symptoms of a typical recurrence of his atrial fibrillation and he is used to having these symptoms intermittently for a number of years. He decided to come to the hospital emergency room last evening because the symptoms where they usually are transient that were more persistent in nature and so he came to the hospital for further evaluation. As it happens on the way to the hospital the symptoms was started to resolve in the emergency room he appeared to be stable he was in an atrially paced rhythm with bifascicular block on his ECG but no evidence of acute myocardial injury. Following admission troponin levels have been sampled and they are normal x3 sets. He is comfortable this morning and does not have any active cardiovascular symptoms. He is unknown to me prior to this consultation but is a good historian he states that he has a history of atrial fibrillation for about 12-14 years. He was under the care of a felting machine operator in [facility] who was recently retired a couple of years ago. He underwent an ablation procedure I believe at [facility] and generally speaking has been doing well he does have recurrences of atrial fib as mentioned above but they are felt to be infrequent and not merit Ng any more aggressive treatment such as antiarrhythmic therapy or another attempt at ablation. He does remains systemically anticoagulated with Xarelto and on chronic beta-jess therapy with metoprolol succinate. He is comfortable at this time and offers no symptoms. In this setting I am seeing him in consultation. The patient states that he is known not to have coronary artery disease by virtue of catheterization that was done at [facility] that was negative. Review of Systems Constitutional: Constitutional: Reports no additional constitutional complaints Eyes: Eyes: Reports no additional eye complaints ENT: Reports system reviewed and no additional complaints, except as documented Cardiovascular: Cardiovascular: Reports as per HPI Respiratory: Respiratory: Reports no additional respiratory complaints Gastrointestinal: Gastrointestinal: Reports no add
--- NOTE | 2023-03-13 13:33 | PM.DS ---
DS: Admitting Diagnosis Discharge Date 03/13/23 Admitting Diagnosis Chest pain/Tightness DS: Discharge Diagnosis Discharge Diagnosis Plan Assessment and plan (1) Chest pain: ?Qualifiers: ?Chest pain type:?unspecified? Qualified Code(s):?R07.9 - Chest pain, unspecified ?Code(s): R07.9 - Chest pain, unspecified ?Status:?Acute ?Assessment and Plan: EKG, initial: electronic atrial pacemaker, RBBB, left anterior fascicular block, cannot r/o septal infarct (age indeterminate), baseline artifact, abnormal EKG and when compared to previous on Jan. EKG, repeat: electronic atrial pacemaker, RBBB, left anterior fascicular block,abnormal EKG and when compared to previous done earlier today - no significant changes. Troponin: <0.012 x3 Heart Score 5 Cardiology consulted - awaiting recs. Sees cardiology/electrophysiology at [facility] - Dr. Simmons -will likely not be able to see his provider for awhile, provider recently had a in the family (son) Continue tele monitoring, EKG p.r.n. for chest pain. 03/13/23: Per Cardiology: he does not require an ischemia evaluation given the lack of objective evidence of ACS and his history of a negative angiogram in the past.? He can be discharged in my opinion for follow-up with his PCP and his utility sales representative.? He will be discharged home today (2) Mucus plugging of bronchi: ?Code(s): T17.500A - Unspecified foreign body in bronchus causing asphyxiation, initial encounter ?Status:?Acute ?Assessment and Plan: CTA: 1. No pulmonary embolus. 2. Mild bronchiectasis and mucous plugging in the inferior lungs. CPT ordered - TID, vest. adding Mucinex and pulmozyme neb. Discussed CT findings with patient, offered pulmonology consultation.? Patient okay with increasing his water intake, trying Mucinex/pulmozyme, and trialing CPT. Given strict instructions to follow-up with PCP or pulmonology if new dyspnea with activity or increasing shortness of breath occurs. (3) Hypertensive chronic kidney disease with stage 1 through stage 4 chronic kidney disease, or unspecified chronic kidney disease: ?Code(s): I12.9 - Hypertensive chronic kidney disease with stage 1 through stage 4 chronic kidney disease, or unspecified chronic kidney disease ?Status:?Acute ?Assessment and Plan: continue home metoprolol. chronic. monitor. 4. Obesity. BMI 29: Diet and lifestyle modification 5. Prostate and Bladder Ca. Follows with Urology and Oncology in the outpatient 6. Hematuria. Chronic. Due to bladder and prostate Ca. Will monitor Plan Home Meds/Chronic Conditions - BPH: continue home tamsulosin - HLD: continue home rosuvastatin Diet: heart healthy GI Prophylaxis: not currently indicated DVT Prophylaxis: SCDs, continue home Xarelto Lines: pIV Code Status: Full Code DS: Summary Hospital Course Reason for hospitalization: Chest pain Hospital Course: 82 y/o M presents here with chest pain and SOB with PMH CKD S3a, HLD, prostate cancer s/p radiation and hormone therapy, prediabetic, migraine associated vertigo, AFib, bladder cancer, and ALLYSON using CPAP. Patient presented here from home via EMS for midsternal chest pain.? Chest pain started while patient was sitting around 7:30 am.? Described the chest pain as midsternal, pressure, 8/10 and nonradiating.? Experienced associated shortness of breath and palpitations.? Symptoms originally consistent with an episode of AFib, he reports these typically resolve without incident if he sits quietly and his pacemaker will eventually take over .? However chest pain continue to worsen in severity and lasted approximately 45 mins to 1 hr. CP lasted until EMS arrived and he was given aspirin and dose of sublingual nitro.? Chest pain then reduced to 2/10.? While in route to the ED, EMS is telemetry showed multiple extra beats according to patient.? Chest pain, shortness a breath, palpitations have since fully resolved.? He denie
== END 2023-03-13 14:52 | disposition home or self-care (01) ==
LOC: ANHED 13:52 → ANHIMU 16:12
PROVIDERS: Emergency Medicine; Student in an Organized Health Care Education/Training Program; Admitting Provider Internal Medicine; Emergency Provider Nurse Practitioner Family; PCP Family Medicine; Visit Provider Internal Medicine
DX: R07.9 Chest pain, unspecified (principal); T17.500A Unspecified foreign body in bronchus causing asphyxiation, initial encounter; I12.9 Hypertensive chronic kidney disease with stage 1 through stage 4 chronic kidney disease, or unspecified chronic kidney disease; N18.31 Chronic kidney disease, stage 3a; R73.03 Prediabetes; J47.9 Bronchiectasis, uncomplicated; G43.109 Migraine with aura, not intractable, without status migrainosus; R94.31 Abnormal electrocardiogram [ECG] [EKG]; G47.33 Obstructive sleep apnea (adult) (pediatric); Z99.89 Dependence on other enabling machines and devices; I48.0 Paroxysmal atrial fibrillation; Z98.890 Other specified postprocedural states; E78.5 Hyperlipidemia, unspecified; Z20.822 Contact with and (suspected) exposure to COVID-19; Z95.0 Presence of cardiac pacemaker; F10.90 Alcohol use, unspecified, uncomplicated; Z79.899 Other long term (current) drug therapy; Z79.01 Long term (current) use of anticoagulants; Z85.46 Personal history of malignant neoplasm of prostate; Z92.3 Personal history of irradiation
CPT/HCPCS: 36415; 71045; 71275; 80053; 83690; 83735; 84484; 85025; 85610; 85730; 87636; 93005; 94640; 94669; 99285; A9270; G0378; Q9967

== ENCOUNTER 2023-04-03 11:27 | Outpatient (CLI) | payer MEDICARE, OTHER, SELFPAY | END 2023-04-03 11:28 | disposition home or self-care (01) | PROVIDERS: PCP Family Medicine; Visit Provider Urology | DX: Z01.818 Encounter for other preprocedural examination (principal); C67.9 Malignant neoplasm of bladder, unspecified | CPT/HCPCS: 87086 ==

== ENCOUNTER 2023-04-07 00:53 | Day surgery (SDC) | payer MEDICARE, OTHER, SELFPAY ==
[2023-04-03 10:33] VITALS: BMI 29.0
--- NOTE | 2023-04-03 11:08 | PC.NURSE ---
Report to the Outpatient Waiting Room, entrance under the green pavilion located off [facility], at time __7:45AM on date __04/07/23 . Planned Procedure Time: __9:45AM . Time changes happen often and if your time is changed the preop area will call you the afternoon before. - You and your visitor will be asked to self-screen and do not enter if you have any COVID symptoms. - A mask is optional within the hospital at this time. Patients may have clear liquids (water, carbonated beverages, clear teas, apple juice) until 3 hours prior to surgery with a maximum of 20 ounces. - No food from midnight until time of surgery. Take the following medications with a SIP of water the morning of surgery: ___METOPROLOL, VENLAFAXINE DO NOT STOP ANY OF YOUR OTHER PRESCRIPTION MEDICATIONS PRIOR TO SURGERY ?EXCEPT THE FOLLOWING Medications to discontinue per physician ___HOLD XERALTO 2 DAYS PRE-OP PER DR WINSLOW(PER PATIENT)- LAST DOSE 04/04/23. Please no make-up, nail french, hairspray, perfume, deodorant, or body powder the day of surgery. No jewelry (including any body piercings) or valuables the day of surgery, leave them at home. Please take a shower or bath the night before, or the morning of, surgery with an antibacterial soap. Wear comfortable, loose fitting clothing. - Jewelry must be removed prior to entering the operating room. Rings and piercings that are not removed may be cut off. - The hospital will not accept responsibility for valuables. - Please leave all valuables, including medications, at home the day of surgery. If you are going home after surgery, a licensed route delivery driver must drive you home. - NO public transportation without another adult if you receive anesthesia. - We recommend that an adult stay with you for 24 hours following discharge. - We also recommend that you do not drive, make important decision, drink alcoholic beverages, or take any drugs that were not prescribed by your health care provider for at least 24 hours after your discharge time. Follow any additional instructions given to you from your surgeon. If you or anyone in your household have experienced Covid symptoms in the past week, please notify your surgeon or the nurse liaison at the phone number below for possible testing. Telephone instructions given to ___PATIENT and asked if any additional questions and then verbalized understanding. Patient advised to call surgeon office or pre surgery nurse liaison [phone] if any additional questions.
[2023-04-07] VITALS (9 sets, daily range): BP systolic 118–154; BP diastolic 64–76; PULSE 60–76; RESP 11–18; TEMP 36.3–36.4; O2SAT 97–100
--- NOTE | 2023-04-07 08:12 | WPDANESEPPF ---
Anes - Initial Pre Proc Eval Procedure: Operation Date: 04/07/23 09:45 Proposed Procedures p Cystoscopy, Meatal Dilation, Bladder Biopsy - Anirudh Herbert MD s Possible Trans Urethral Resection Bladder Tumor - Anirudh Herbert MD Date/Time: 04/07/23 08:12 Surgeon: Anirudh Herbert MD Pre Op Diagnosis: Bladder Ca Patient Data Age: 82 Gender: M Height: 1.7 m Weight: 86.3 kg Last Vital Signs Temp 36.4 C L 04/07/23 08:08 Pulse 76 04/07/23 08:08 Resp 16 04/07/23 08:08 BP 149/76 H 04/07/23 08:08 Pulse Ox 98 04/07/23 08:08 O2 Del Method Room Air 04/07/23 08:08 Allergies Allergy/AdvReac Type Severity Reaction Status Date / Time No Known Allergies Allergy Mild Verified 04/07/23 07:41 Home Medications Medication Instructions Recorded Confirmed Type erenumab-aooe 140 mg/mL 140 mg subcut MONTHLY MIGRAINS 08/28/22 04/03/23 History subcutaneous auto-injector (Aimovig Autoinjector) metoprolol succinate 25 mg 50 mg PO BID 08/28/22 04/03/23 History tablet,extended release 24 hr rivaroxaban 20 mg tablet (Xarelto) 20 mg PO DAILY 08/28/22 04/03/23 History rosuvastatin 40 mg tablet 40 mg PO DAILY 90 days #90 tabs 03/02/23 04/03/23 Rx venlafaxine 37.5 mg 37.5 mg PO DAILY 04/03/23 04/03/23 History capsule,extended release 24 hr Laboratory Tests 04/07/23 08:05 PT Pending INR Pending APTT Pending Patient hx anesthesia problems: none Family hx anesthesia problems: none Results Review: All pre-operative results and documents have been reviewed as part of the pre-operative evaluation. 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 Surgical History Surgical History History of cardiac pacemaker 2020 Social History Social History Smoking packs per day: 0.5 Smoking cigarettes per day: 10.0 Years smoked: 30 Smoking pack-years: 15.00 Smoking status: Former smoker Tobacco type: cigarettes Second hand tobacco smoke exposure: No Smoking end date: 08/23/82 Alcohol intake: current Drinks per week: 7 Alcohol use details: 1 WINE/DAY Substance use: never Substance use type: does not use Do You Feel Safe in your Home?: Yes Lack of Transportation: No Lack of Food: Never True Current Housing: I Have Housing Concerned About Future Housing: No Difficulty Paying Gas/Electric Bills: No Difficulty Paying for Meds: No Currently Unemployed: No Education: High School Diploma/GED Difficulty w/ Childcare or Family Care: No Living arrangements: with family Additional living arrangements comments: Occupation/Education: retired Gender identity (if verbalized by the patient): Male Sexual Orientation (if Verbalized by the Patient): Straight or Heterosexual Spiritual care concerns: No Anes - Eval Final PreProcedure Day of Procedure 04/07/23 08:12 Patient weight: overweight Heart: regular rate and rhythm Lungs: clear to auscultation Airway: Mallampati scale class II Neurological: alert and oriented Last oral intake: >/= 8 hours ASA classification: IV Emergent: no Anesthetic plan: proceed Anesthesia type and monitoring: general LMA and standard monitoring Results Review: All pre-operative results and documents have been reviewed as part of the pre-operative evaluation. Informed Consent: The patient's anesthetic plan and its attendant risks and benef
[2023-04-07] MEDS: LACTATED RINGERS 1,000 ML 30 ML IV CONT ×2 (08:25→11:21)
[2023-04-07 08:38] LABS: INR 1.1; Prothrombin Time 14.7 Seconds (11.1-14.7)
[2023-04-07 08:39] LABS: Partial Thromboplastin Time 29.7 SECONDS (22.3-36.8)
--- NOTE | 2023-04-07 09:06 | WPDHPUPDATE1 ---
History and Physical Update Update Date/Time: 04/07/23 09:06 History and Physical has been reviewed, including an updated exam of the patient. There are NO changes in the patient's condition. Risks, benefits, and alternatives have been discussed and questions answered. Patient agrees to proceed with procedure. Proceed with meatal l dilation, cystoscopy, bladder biopsy with possible TURBT
[2023-04-07] MEDS: ceFAZolin 2 GM/D5W 50 ML 2 GM/50 ML BAG IVPB (09:24)
[2023-04-07] MEDS: LIDOCAINE HCL 2% GEL UROJET 10 ML PKG MUCOUS MEM (09:51)
--- NOTE | 2023-04-07 09:51 | W.PM.PROC2 ---
Procedure Note - Detailed Date of Procedure 04/07/23 Pre-op Diagnosis Bladder Ca, meatal stenosis Post-op Diagnosis Same Procedure Performed Meatal dilation using male sounds, cystoscopy, fulguration of resection site of prior bladder tumor. Gil placement Surgeon Anirudh Herbert MD Anesthesia General Description of Procedure Patient is taken the operative suite correctly identified. Once anesthesia was obtained was placed in dorsal lithotomy position and prepped draped usual sterile fashion. He has meatal stenosis and this was dilated to 28 [place] using male sounds. Cystoscopy is then performed. Prostate does not appear obstructive in nature. Upon entering the bladder there are no gross papillary tumors noted. The prior resection site was still healing. It was slightly oozy. I placed a 24 [place] resectoscope sheath in and fulgurated the prior resection site for better hemostasis. Scope was removed. 2% viscous lidocaine was inserted into the urethra. Eighteen [place]ican Gil was placed and inflated with 10 cc in the balloon. Patient is taken recovery stable condition. Gil catheter will come out morning. Will teach him to self dilate his meatus. Will plan on reschedule being in approximately 6-8 weeks in the office. This completes dictation. Please send a copy to my office. Estimated Blood Loss 0 Drains Yes Packing No Pathology None sent Complications No immediate complications Condition Stable Disposition PACU
[2023-04-07] MEDS: fentaNYL CITRATE INJ (*CRX) 100 MCG/2 ML VIAL 25 MCG IV PUSH ×5 (10:27→11:22)
--- NOTE | 2023-04-07 10:50 | SUR.PHASEI ---
Dr. Herbert at bedside to evaluate patient's aragon. Stated urine color okay after irrigation in PACU. Patient may be sent to phase 2 and be discharged home when awake and stable.
== END 2023-04-07 12:30 | disposition home or self-care (01) ==
PROVIDERS: PCP Family Medicine; Visit Provider Urology
PROC: 0TBB8ZX Excision of Bladder, Via Natural or Artificial Opening Endoscopic, Diagnostic (ICD-10-PCS; CPT 52204; principal; 2023-04-07 09:45)
DX: C67.0 Malignant neoplasm of trigone of bladder (principal); N35.911 Unspecified urethral stricture, male, meatal; Z85.46 Personal history of malignant neoplasm of prostate; I12.9 Hypertensive chronic kidney disease with stage 1 through stage 4 chronic kidney disease, or unspecified chronic kidney disease; N18.31 Chronic kidney disease, stage 3a; E78.2 Mixed hyperlipidemia; R73.03 Prediabetes; Z95.0 Presence of cardiac pacemaker; Z87.891 Personal history of nicotine dependence; Z79.01 Long term (current) use of anticoagulants
CPT/HCPCS: 52235; 36415; 85610; 85730; J0690; J2704; J3010; J7120

== ENCOUNTER 2023-12-08 14:52 | Outpatient (CLI) | payer MEDICARE, OTHER, SELFPAY ==
[2023-12-08 16:05] LABS: Anion Gap 8 mmol/L (4-12); Blood Urea Nitrogen 26 mg/dL (9-20); Calcium 9.2 mg/dL (8.4-10.2); Carbon Dioxide 25 mmol/L (22-30); Chloride 105 mmol/L (98-107); Estimated Glomerular Filt Rate 58; Glucose 96 mg/dL (65-110); Potassium 4.1 mmol/L (3.4-5.0); Sodium 138 mmol/L (137-145)
[2023-12-08 16:11] LABS: INR 1.6; Partial Thromboplastin Time 31.8 Seconds (22.3-36.8); Prothrombin Time 18.9 Seconds (11.1-14.7)
== END 2023-12-08 14:53 | disposition home or self-care (01) ==
LOC: ANHSURGERY 15:01
PROVIDERS: Anesthesiology; PCP Family Medicine; Visit Provider Urology
DX: C67.9 Malignant neoplasm of bladder, unspecified (principal); N18.9 Chronic kidney disease, unspecified
CPT/HCPCS: 36415; 80048; 85610; 85730; 87086

== ENCOUNTER 2023-12-15 02:58 | Day surgery (SDC) | payer MEDICARE, OTHER, SELFPAY ==
[2023-12-07 14:31] VITALS: BMI 29.0
--- NOTE | 2023-12-07 15:01 | PC.NURSE ---
Report to the Outpatient Waiting Room, entrance under the green pavilion located off [facility], at time ___6:00AM___ on date ___12/15/23____. Planned Procedure Time: ___7:30AM .? Time changes happen often and if your time is changed the preop area will call you the afternoon before. - You and your visitor will be asked to self-screen and do not enter if you have any COVID symptoms. Please call surgeon if you need to reschedule. - A mask is optional within the hospital at this time. Patients may have clear liquids (water, carbonated beverages, clear teas, apple juice) until 3 hours prior to surgery with a maximum of 20 ounces. - No food from midnight until time of surgery and no smoking. Take only the following medications with a SIP of water on the morning of surgery: LAMOTRIGINE DO NOT STOP ANY OF YOUR OTHER PRESCRIPTION MEDICATIONS PRIOR TO SURGERY EXCEPT THE FOLLOWING Medications to discontinue per physician ____HOLD ALL VITAMINS/SUPPLEMENTS 7 DAYS PRE-OP PER DR BORJAS- LAST DOSE 12/07/23. HOLD XERALTO 1 DAY PRE-OP PER OUTSOLES CHANNEL OPENER DR ROACH- LAST DOSE 12/13/23. (DR WINSLOW' OFFICE NOTIFIED OF 1 DAY HOLD). Please no make-up, nail andorran, hairspray, perfume, deodorant, or body powder the day of surgery.? No jewelry (including any body piercings) or valuables the day of surgery, leave them at home.? Please take a shower or bath the night before, or the morning of, surgery with an antibacterial soap.? Wear comfortable, loose fitting clothing.? - Jewelry must be removed prior to entering the operating room.? Rings and piercings that are not removed may be cut off. - The hospital will not accept responsibility for valuables.? - Please leave all valuables, including medications, at home the day of surgery. If you are going home after surgery, a licensed skip load driver must drive you home.? - NO public transportation without another adult if you receive anesthesia. - We recommend that an adult stay with you for 24 hours following discharge. - We also recommend that you do not drive, make important decision, drink alcoholic beverages, or take any drugs that were not prescribed by your health care provider for at least 24 hours after your discharge time. Follow any additional instructions given to you from your surgeon. Telephone instructions given to ____PATIENT and asked if any additional questions and then verbalized understanding. Patient advised to call surgeon office or pre surgery nurse liaison [phone] if any additional questions.
[2023-12-15] VITALS (8 sets, daily range): BP systolic 118–154; BP diastolic 57–76; PULSE 63–75; RESP 12–18; TEMP 36.2–37.1; O2SAT 95–100
[2023-12-15] MEDS: LACTATED RINGERS 1,000 ML 30 ML IV CONT (06:15)
--- NOTE | 2023-12-15 06:40 | P.PNAN_ITS ---
Anes - Initial Pre Proc Eval Procedure: Operation Date: 12/15/23 07:30 Proposed Procedures p Flexible Cystoscopy - Anirudh Herbert MD Date/Time: 12/15/23 06:40 Surgeon: Anirudh Herbert MD Pre Op Diagnosis: bladder CA Patient Data Age: 83 Gender: M Height: 1.7 m Weight: 84 kg Allergies Allergy/AdvReac Type Severity Reaction Status Date / Time oxybutynin [From Ditropan] AdvReac Hallucinating, Verified 12/07/23 14:22 VIVID DREAMING propanolol AdvReac Severe Chills, Uncoded 12/07/23 14:22 TREMORS Home Medications Medication Instructions Recorded Confirmed Type erenumab-aooe 140 mg/mL 140 mg subcut MONTHLY MIGRAINS 08/28/22 12/07/23 History subcutaneous auto-injector (Aimovig Autoinjector) rivaroxaban 20 mg tablet (Xarelto) 20 mg PO DAILY 08/28/22 12/07/23 History rosuvastatin 40 mg tablet 40 mg PO DAILY 90 days #90 tabs 03/02/23 12/07/23 Rx lamotrigine 25 mg tablet,extended 25 mg PO TID 11/09/23 12/07/23 History release 24 hr metoprolol succinate 50 mg 50 mg PO HS 11/09/23 12/07/23 History tablet,extended release 24 hr magnesium oxide 500 mg capsule 500 mg PO DAILY 12/07/23 12/07/23 History Patient hx anesthesia problems: none Family hx anesthesia problems: none Results Review: All pre-operative results and documents have been reviewed as part of the pre- operative evaluation. 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 Surgical History Surgical History History of cardiac pacemaker 2020 Social History Social History Smoking packs per day: 1 Smoking cigarettes per day: 20.0 Years smoked: 30 Smoking pack-years: 30.00 Smoking status: Former smoker Tobacco type: cigarettes Second hand tobacco smoke exposure: No Smoking end date: 08/23/92 Alcohol intake: current Drinks per week: 7 Alcohol use details: 1 WINE/DAY Substance use: never Substance use type: does not use Do You Feel Safe in your Home?: Yes Lack of Transportation: No Lack of Food: Never True Current Housing: I Have Housing Concerned About Future Housing: No Difficulty Paying Gas/Electric Bills: No Difficulty Paying for Meds: No Currently Unemployed: No Education: High School Diploma/GED Difficulty w/ Childcare or Family Care: No Living arrangements: alone Additional living arrangements comments: Occupation/Education: retired Gender identity (if verbalized by the patient): Male Sexual Orientation (if Verbalized by the Patient): Straight or Heterosexual Spiritual care concerns: No Anes - Eval Final PreProcedure Day of Procedure 12/15/23 06:40 Patient weight: overweight Heart: regular rate and rhythm (paced) Lungs: clear to auscultation Airway: Mallampati scale class II Neurological: alert and oriented Last oral intake: >/= 8 hours ASA classification: III Emergent: no Anesthetic plan: proceed Anesthesia type and monitoring: general LMA and standard monitoring Results Review: All pre-operative results and documents have been reviewed as part of the pre- operative evaluation. Informed Consent: The patient's anesthetic plan and its attendant risks and benefits were discussed with the patient/family/POA. Questions were solicited and answers provided to the satisfaction of the patient/family/POA.
--- NOTE | 2023-12-15 06:54 | PM.IMHP ---
H&P: HPI History of Present Illness Date/Time: 12/15/23 06:54 Chief Complaint: bladder cancer Narrative: 83 yr old male with history of bladder carcinoma post BCG presents for cystoscopy as he is unable to tolerate cystoscopy in the office. 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 Surgical History Surgical History History of cardiac pacemaker 2020 Social History Social History Smoking packs per day: 1 Smoking cigarettes per day: 20.0 Years smoked: 30 Smoking pack-years: 30.00 Smoking status: Former smoker Tobacco type: cigarettes Second hand tobacco smoke exposure: No Smoking end date: 08/23/92 Alcohol intake: current Drinks per week: 7 Alcohol use details: 1 WINE/DAY Substance use: never Substance use type: does not use Do You Feel Safe in your Home?: Yes Lack of Transportation: No Lack of Food: Never True Current Housing: I Have Housing Concerned About Future Housing: No Difficulty Paying Gas/Electric Bills: No Difficulty Paying for Meds: No Currently Unemployed: No Education: High School Diploma/GED Difficulty w/ Childcare or Family Care: No Living arrangements: alone Additional living arrangements comments: Occupation/Education: retired Gender identity (if verbalized by the patient): Male Sexual Orientation (if Verbalized by the Patient): Straight or Heterosexual Spiritual care concerns: No Meds Home Medications and Allergies Home Medications Medication Instructions Recorded Confirmed Type erenumab-aooe 140 mg/mL 140 mg subcut MONTHLY MIGRAINS 08/28/22 12/07/23 History subcutaneous auto-injector (Aimovig Autoinjector) rivaroxaban 20 mg tablet (Xarelto) 20 mg PO DAILY 08/28/22 12/07/23 History rosuvastatin 40 mg tablet 40 mg PO DAILY 90 days #90 tabs 03/02/23 12/07/23 Rx lamotrigine 25 mg tablet,extended 25 mg PO TID 11/09/23 12/07/23 History release 24 hr metoprolol succinate 50 mg 50 mg PO HS 11/09/23 12/07/23 History tablet,extended release 24 hr magnesium oxide 500 mg capsule 500 mg PO DAILY 12/07/23 12/07/23 History Allergies Allergy/AdvReac Type Severity Reaction Status Date / Time oxybutynin [From Ditropan] AdvReac Hallucinating, Verified 12/07/23 14:22 VIVID DREAMING propanolol AdvReac Severe Chills, Uncoded 12/07/23 14:22 TREMORS Exam Const: General: cooperative and comfortable Resp: Effort & Inspection: normal respiratory effort Cardio: Rate: regular rate Rhythm: regular rhythm Assessment and Plan Assessment and plan (1) Bladder cancer: Qualifiers: Bladder location: unspecified site Qualified Code(s): C67.9 - Malignant neoplasm of bladder, unspecified Code(s): C67.9 - Malignant neoplasm of bladder, unspecified Status: Acute Assessment and Plan: Proceed with cystoscopy
--- NOTE | 2023-12-15 06:59 | WPDHPUPDATE1 ---
History and Physical Update Update Date/Time: 12/15/23 06:59 History and Physical has been reviewed, including an updated exam of the patient. There are NO changes in the patient's condition. Risks, benefits, and alternatives have been discussed and questions answered. Patient agrees to proceed with procedure.
[2023-12-15 07:04] LABS: INR 1.3; Prothrombin Time 16.6 Seconds (11.1-14.7)
[2023-12-15] MEDS: LIDOCAINE HCL 2% GEL UROJET 10 ML PKG MUCOUS MEM (07:26)
[2023-12-15] MEDS: ceFAZolin 2 GM/D5W 50 ML 2 GM/50 ML BAG IVPB (07:26)
--- NOTE | 2023-12-15 07:44 | W.PM.PROC2 ---
Procedure Note - Detailed Date of Procedure 12/15/23 Pre-op Diagnosis bladder CA Post-op Diagnosis Same (Urethral meatal narrowing) Procedure Performed Urethral dilation, cystoscopy Surgeon Anirudh Herbert MD Anesthesia General Description of Procedure Patient was taken to the operative suite correctly identified. Once anesthesia was obtained was placed in dorsal lithotomy position and prepped and draped usual sterile fashion. In order to place a 19 [place]araguan scope I need to dilate the meatus. This was dilated up to 22 [place]. Cystoscopy then reveals a fairly normal urethra with some mild narrowing proximally. He does have sort of a fixed bladder neck area. Upon entering the bladder there is no tumors or irregularities noted at this time. I looked with the 19 [place]araguan scope was well as a flexible cystoscope. 2% viscous lidocaine was then inserted into the urethra. Patient was taken recovery stable condition. Plan is to see him in the office in 3 months and hopefully we can do a cystoscopy at that time. This completes dictation. Please send a copy of op note to my office. Estimated Blood Loss 0 Drains Yes Pathology None sent Complications No immediate complications Condition Stable Disposition PACU
[2023-12-15] MEDS: oxyCODONE HCL (*CRX) 5 MG TAB IR PO (08:48)
== END 2023-12-15 08:34 | disposition home or self-care (01) ==
PROVIDERS: Anesthesiology; PCP Family Medicine; Visit Provider Urology
PROC: 0TJB8ZZ Inspection of Bladder, Via Natural or Artificial Opening Endoscopic (ICD-10-PCS; CPT 52000; principal; 2023-12-15 07:30)
DX: Z08 Encounter for follow-up examination after completed treatment for malignant neoplasm (principal); N35.911 Unspecified urethral stricture, male, meatal; D64.9 Anemia, unspecified; I12.9 Hypertensive chronic kidney disease with stage 1 through stage 4 chronic kidney disease, or unspecified chronic kidney disease; N18.31 Chronic kidney disease, stage 3a; E78.2 Mixed hyperlipidemia; R73.03 Prediabetes; Z79.01 Long term (current) use of anticoagulants; Z98.890 Other specified postprocedural states; Z95.0 Presence of cardiac pacemaker; Z87.891 Personal history of nicotine dependence; Z85.46 Personal history of malignant neoplasm of prostate; Z85.51 Personal history of malignant neoplasm of bladder
CPT/HCPCS: 52281; 36415; 85610; A9270; J0690; J2003; J2405; J2704; J3010; J7120

== ENCOUNTER 2024-08-29 13:00 | Outpatient (CLI) | payer MEDICARE, OTHER, SELFPAY ==
--- OUTSIDE RECORDS SUMMARY | 2024-08-29 13:12 | XMS_ITS | Clinical Summary ---
Author Organization [facility] Address [address] [place] [address] Care Team Providers Care Advertising Job Titles Name Role Phone Osmani Zamorano MD Primary Care Provider [phone] Source Comments [facility],non-owned Affiliates and Associated Physician Practices is amultiple site organization consisting of ambulatory clinics and hospital sitesin [place], [place], [place] and [place]. This disclosure is being madepursuant to the Care Everywhere program and may not contain all information available regarding this patient. Last updated 17.[facility] Allergies Active Allergy Reactions Criticality Noted Date Comments Propranolol Unknown 01/06/2024 Medications * Be aware that medications may not be up to date on this document. Alwaysverify current medications with the patient. rosuvastatin (Crestor) 40 MG tablet Take 1 (one) tablet by mouth once daily 3 Active tamsulosin (Flomax) 0.4 MG capsule Take 1 (one) capsule by mouth 3 Active Betahistine HCl (Betahistine Dihydrochloride) POWD 3 Active Erenumab-aooe (AIMOVIG, 140 MG DOSE, SC) Active lamoTRIgine (LaMICtal) 25 MG tablet May cause drowsiness.Avoid exposure to sun.Take or use exactly as directed. 4 Active metoprolol succinate XL 24hr (Toprol XL) 25 MG tabletIndication s:Atrial Fibrillation Take 1 (one) tablet by mouth 2 times daily Reasons: Atrial Fibrillation 180 tablet 3 5 Active rivaroxaban (Xarelto) 20 MG tablet Take 1 (one) tablet by mouth daily with food 90 tablet 3 5 Active Active Problems Problem Noted Date Diagnosed Date Chest pain 02/09/2022 BOONE (dyspnea on exertion) 02/09/2022 Cardiac pacemaker in situ 05/26/2021 Paroxysmal atrial fibrillation 04/11/2021 Encounters Date Type Department Care Team Description 08/22/2024 8:15 AM CDT Clinical Support [facility] Vascular [place] [id number] [facility], [facility] [address] [place] [address] Jordi Sharma MD Sick sinus syndrome due to SA node dysfunction (HCC) from Last 3 Months Social History Tobacco Use Types Packs/Day Years Used Date Smoking Tobacco: Never Smokeless Tobacco: Never Tobacco Cessation:Counseling Given: Not Answered Alcohol Use Standard Drinks/Week Comments Never 0 (1 standard drink = 0.6 oz pur e alcohol) Sex and Gender Information Value Date Recorded Sex Assigned at Male 09/16/2021 10:09 AM CDT Legal Sex Male 11:31 AM DIRECTOR BIOSTATISTICS Gender Identity Male 09/16/2021 10:09 AM CDT Sexual Orientation Not on file Last Filed Vital Signs Vital Sign Reading Time Taken Comments Blood Pressure 131/80 05/26/2024 11:11 AM CDT Pulse 80 05/26/2024 11:11 AM CDT Temperature - - Respiratory Rate - - Oxygen Saturation 99% 05/26/2024 11:11 AM CDT Inhaled Oxygen Concentration - - Weight 90.4 kg (199 lb 3.2 oz) 05/26/2024 11:11 AM CDT Height 170.2 cm (5' 7) 05/26/2024 11:11 AM CDT Body Mass Index 31.2 05/26/2024 11:11 AM CDT Plan of Treatment Upcoming Encounters Date Type Department Care Team (Late st Contact Info) Description 11/21/2024 8:15 AM CDT Clinical Support [facility] Heart [facility] Vascular [facility] [address] [facility], [address] [place] [address] [place] [id number] [facility] [address] [place] [address] 11/25/2024 11:30 AM CDT Office Visit [facility] [address] [facility] [place] [phone] Shantel Samuel, FRUIT THINNER MACHINE OPERATOR-SECURITY SUPERVISOR [id number] [place] [address] Health Maintenance Due Date Last Done Comments MEDICARE AWV 12 MONTHS 1942 DTAP/TDAP/TD VACCINES (1 - Tdap) 1961 PNEUMOCOCCAL VACCINE 50+ (1 of 1 - PCV) 1992 ZOSTER VACCINE (1 of 2) 1992 Respiratory Syncytial Virus (RSV) Vaccine Pt: or over 60 yrs (1 - 1-dose 75+ series) 2017 COVID-19 VACCINE ( - 2023-2 5 season) 2023 DEPRESSION SCREENING 02/24/2024 INFLUENZA VACCINE (#1) 2024 11/25/2021 HEPATITIS B VACCINE Aged Out No longe r eligible based on patient's age to complete this topic HIB VACCINE Aged Out No longer eligi ble based on patient's age to complete this topic HPV VACCINE Aged Out No longer eligi ble based on patient's age to complete this topic MENINGOCOCCAL (Group B) VACC INE SHARED DECISION-MAKING Aged Out No longer eligibl e based on patient's age to complete this topic MENINGOCOCCAL GROUPS A/C/Y/W VACCINE Aged Out No longer eligible b ased on patient's age to complete this topic Procedures Procedure Name Priority Date/Time Associated Diagnosis Comments [facility] CHECK Routine 10:26 AM CDT Sick sinus syndrome due to SA node dysfunction (HCC) from Last 3 Months Insurance [employer] MEDICARE [facility] [employer] [place] [address] [facility] [place]AH [place] [id number] [facility] MEDIC[facility] [place] [email or web address] [facility] MEDIC[facility] Care Teams Advertising Job Titles Relationship Specialty Start Date End Date Osmani Zamorano MD [address] [place] [address] [place] [address] PCP - General Family Medicine 05/24/21
--- OUTSIDE RECORDS SUMMARY | 2024-08-29 13:12 | XMS_ITS | Continuity of Care Document ---
Author Name [facility] Organization [facility] Care Team Providers Care Metal Work Duct Installer Name Role Phone [facility] Unavailable Unavailable Medications Combined list of outpatient medications from Department of Defense and Veterans Affairs facilities.Medications provided include 1) outpatient medications from the last 15 months, and 2) patient-reported medications. Medication Details Route Status Patient Instructions Prescription Expires Prescription Number Last Dispense Date Ordering Provider Order Date Order Qty Source LaMICtal (BRAND) 25 MG ORAL TAB May cause drowsine ss.Avoid exposure to sun.Take or use exactly as directed . 05/31/2024 [id number] 4 [address] [place] [address] Tony GAMING ([facility]) LAMOTRIGINE , 25MG, TAB ER2 24, ORAL Obtain advice for OTCs.May cause drowsine ss/dizzi ness.May impair driving. Swallow whole.Ch patito with your doctor before becoming .Do not chew or crush. 06/24/2024 [id number] 4 [address] [place] [address] Tony GAMING [facility] Immunizations Combined list of available immunizations from the Department of Defense and Veterans Affairs facilities. Immunization Series Date Given Administered By Site Reaction Lot Number CVX Code Drug Electronics Installer Status Comments Source COVID-19, mRNA, LNP-S, PF, 100 mcg or 50 mcg dose 2021 GLENYS, [employer] (MOD) Not Given COVID-19, mRNA, LNP-S, PF, 100 mcg or 50 mcg dose DoD COVID-19, mRNA, LNP-S, PF, 100 mcg or 50 mcg dose 2020 KRISTA, [employer] (MOD) Not Given COVID-19, mRNA, LNP-S, PF, 100 mcg or 50 mcg dose DoD hepatitis A vaccine, adult dosage 2 1998 Unknown, Provider [id number] Merck (MSD) complet ed hepatitis A vaccine, adult dosage DoD tetanus and diphtheria toxoids, adsorbed, preservative free, for adult use (2 Lf of tetanus toxoid and 2 Lf of diphtheria toxoid) 1 1998 Unknown, Provider [id number] Carli (RITIKA) complet ed tetanus and diphtheri a toxoids, adsorbed, preservat fabienne free, for adult use (2 Lf of tetanus toxoid and 2 Lf of diphtheri a toxoid) DoD hepatitis A vaccine, adult dosage 1 1998 Unknown, Provider [id number] Merck (MSD) complet ed hepatitis A vaccine, adult dosage DoD trivalent poliovirus vaccine, live, oral 1 1971 Unknown, Provider 02 () complet ed trivalent polioviru s vaccine, live, oral DoD Social History Combined list of available smoking, tobacco, and other social history from Department of Defense and Veterans Affairs facilities. Social History Type Response Date Comment Sour e This section is an empty social history section. DoD
--- OUTSIDE RECORDS SUMMARY | 2024-08-29 13:12 | XMS_ITS | Encounter Summary ---
Author Organization [facility] Address [address] [place] [address] Phone Care Team Providers Care Security Operations Manager Name Role Phone Osmani Zamorano MD Primary Care Provider [phone] Osmani Zamorano MD Unavailable [phone] Referral, Self Unavailable Unavailable YaakovchBlue MD Unavailable [phone] Encounter Details Date Type Department Care Team (Latest Contact Info) Description 12/24/2020 Orders Only [facility] Scanning, Provider Social History Tobacco Use Types Packs/Day Years Used Date Smoking Tobacco: Former Cigarettes Q uit: 1992 Smokeless Tobacco: Never Alcohol Use Standard Drinks/Week Comments Yes 0 (1 standard drink = 0.6 oz pur e alcohol) Sex and Gender Information Value Date Recorded Sex Assigned at Not on file Legal Sex Male 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 Gender Identity Male 12/19/2019 1:16 PM CDT Sexual Orientation Not on file documented as of this encounter Plan of Treatment Not on file documented as of this encounter Procedures Procedure Name Priority Date/Time Associated Diagnosis Comments PULMONARY - RESULT SCAN 06/03/2021 documented in this encounter Results * PULMONARY - RESULT SCAN (06/03/2021) Anatomical Region Laterality Modality Other us Provider Scanning Edited Result - Final documented in this encounter Visit Diagnoses Not on filedocumented in this encounter Care Teams Security Operations Manager Relationship Specialty Start Date End Date Osmani Zamorano MD [address] [place] [address] PCP - General 12/07/19 Osmani Zamorano MD [address] [place] [address] 12/07/19 Referral, Self Referring Physician 03/09/18 Blue Pacheco MD [address] DEPT OPHTHALMOLOGY, [address] [address] Surgeon Ophthalmology 11/27/23 documented as of this encounter
--- OUTSIDE RECORDS SUMMARY | 2024-08-29 13:12 | XMS_ITS | Clinical Summary ---
Author Organization [facility] Address [facility] [place] [address] Care Team Providers Care Farm Machinery Mechanic Name Role Phone Osmani Zamorano MD Primary Care Provider [phone] Allergies No known active allergies Medications HYDROcodone-acet aminophen (NORCO) 5-325 MG tabletIndication s:Acute Pain < 7 Day Supply Take 1 tablet by mouth every 6 (six) hours as needed for Pain. Indications : Acute Pain < 7 Day Supply 15 tablet 12/30/2022 Active Active Problems Problem Noted Date Diagnosed Date Dermatochalasis of both upper eyelids 09/17/2022 Loss of peripheral visual field, bilateral 09/17 Chest pain 02/09/2022 OBONE (dyspnea on exertion) 02/09/2022 Cardiac pacemaker in situ 05/26/2021 Paroxysmal atrial fibrillation ([facility]) 04/11/2021 Meniere's disease, cochleovestibular, active, le ft 09/17/2020 Vestibular migraine 08/20/2020 Overview (12/30/2022): Last Assessment & Plan: Norman presents today with symptoms consistent with that of vestibular migraines. He has undergone an MRI which was unrevealing for any vascular or structural cause to his headache pattern. His trialed Topamax, verapamil, nortriptyline, and propranolol with no benefit. He did not tolerate gabapentin. He has done remarkably well with Aimovig at 140mg/ml every 30 days. Does note some slight wearing off 2-3 days before his next injection. Denies any further headache between these episodes. Continues to follow with ENT who is doing a more in depth work up to help identify possible causes to his vestibular symptoms. He has completed vestibular therapy with no improvement in his symptoms. Does feel he could further benefit from more therapy for balance training. Plan: 1. Headache diary 2. Preventative: Continue with Aimovig 140 mg/ml. Will try to have him increase to every 28 days to prevent the wearing off effect. -start amitriptyline 10 mg nightly. Consider Effexor XR if he does not tolerate amitriptyline. 3. Continue to follow with ENT for further vestibular evaluation. Appreciate their input. 4. Limit caffeine intake 5. Encouraged regular exercise and well-balanced diet 6. Encouraged adequate water intake 7. Follow up: 3-4 months Knee pain 02/01/2019 Lumbar sprain 02/01/2019 Spinal stenosis of lumbar region 02/01/2019 Pain in limb 02/01/2019 Osteoarthritis of knee 11/30/2018 Nuclear sclerotic cataract, bilateral 07/04/2018 Overview (12/30/2022): Last Assessment & Plan: Angles are not appositional. Just lens rise and steep. Pt not bothered by glare yet. Recommend following Q6 months with IOP checks and yearly HVF/OCT with optometry. If IOP > 21mmHg or VF changes or cataract symptoms worse refer back for lensectomy +/- TM based surgery. F/U with optometry 6 months Narrow angle glaucoma suspect of both eyes 04/01 Overview (12/30/2022): Last Assessment & Plan: By CD asymmetry. Does have lens rise and narrowing of angles. Do not recommend LPI unless there is optic nerve changes or HVF changes. A-A OCT, baseline HVF and OCT today. 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 Did not respond to vestibular therapy but does feel that his gait overall improved with therapy services. Currently is not doing PT, does prefer [facility] and wishes to proceed with this again in the fall. Persistent insomnia 07/26/2010 Social History Tobacco Use Types Packs/Day Years Used Date Smoking Tobacco: Never Assessed Sex and Gender Information Value Date Recorded Sex Assigned at Not on file Legal Sex Male 7:09 PM CDT Gender Identity Not on file Sexual Orientation Not on file Last Filed Vital Signs Vital Sign Reading Time Taken Comments Blood Pressure 165/60 12/30/2022 1:52 AM SILO MAN Pulse 71 12/30/2022 1:52 AM SILO MAN Temperature 36.3 C (97.4 F) 12/30/2022 1:52 AM SILO MAN Respiratory Rate 18 12/30/2022 1:52 AM SILO MAN Oxygen Saturation 97% 12/30/2022 1:52 AM SILO MAN Inhaled Oxygen Concentration - - Weight 88.5 kg (195 lb) 12/30/2022 1:52 AM SILO MAN Height 170.2 cm (5' 7) 12/30/2022 1:52 AM SILO MAN Body Mass Index 30.54 12/30/2022 1:52 AM SILO MAN Plan of Treatment Health Maintenance Due Date Last Done Comments Zoster Vaccines (1 of 2) 1992 DTaP, Tdap and Td Vaccines ( 1 - Tdap) 06/21/1998 06/20/1998 Annual Medicare Wellness Visit 06/12/2007 Pneumococcal Vaccine: 50+ Years (2 of 2 - PPSV23) 07/13/2015 07/12/2014 RSV Immunization or 60+ Years (1 - 1-dose 75+ series) 2017 COVID-19 Vaccine (2023-2 5 season) 2023 06/20/2021, 12/20/2020 Meningococcal B Vaccine Aged Out No l onger eligible based on patient's age to complete this topic Meningococcal Vaccine Aged Out No tonia arsh eligible based on patient's age to complete this topic RSV Immunizations Under 20 Months Aged Out No longer eligible b ased on patient's age to complete this topic Insurance MEDICARE [facility] [employer] [facility] Care Teams Farm Machinery Mechanic Relationship Specialty Start Date End Date Osmani Zamorano MD [address] [place] [id number] PCP - General FAMILY PRACTICE 08/21/21
--- OUTSIDE RECORDS SUMMARY | 2024-08-29 13:12 | XMS_ITS | Referral Summary ---
Author Organization [facility] Address [address] [place] [address] Care Team Providers Care Presiding Judge Name Role Phone Osmani Zamorano MD Primary Care Provider [phone] Osmani Zamorano MD Unavailable [phone] Referral, Self Unavailable Unavailable Blue Pacheco MD Unavailable [phone] Encounters Date Type Department Care Team Description 07/25/2024 10:30 AM CDT Office Visit [facility] [address] 6[address] [place] [address] Meenakshi Navarrete MD Obstructive sleep apnea (Primary Dx) from Last 3 Months Allergies No known active allergies Medications rivaroxaban (XARELTO) 20 mg tabletIndications :atrial fibrillation Take 1 tablet (20 mg total) by mouth nightly 1 Active metoprolol XL (TOPROL-XL) 25 mg extended release tabletIndications :hypertension,onc e daily Take 1 tablet (25 mg total) by mouth nightly 2 Active rosuvastatin (CRESTOR) 40 mg tabletIndications :hyperlipidemia Take 1 tablet (40 mg total) by mouth nightly Active lamoTRIgine (LaMICtal) 25 mg tabletIndications :vestibular migraines Take 2 tablets (50 mg total) by mouth 2 (two) times a day 4 Active POTASSIUM ORALIndications:s upplement Take 1 tablet by mouth every morning Active erenumab-aooe 140 mg/mL auto-injectorIndi cations:Vestibula r migraine Inject 140 mg under the skin every 30 days. 1 mL 5 4 Active Active Problems Problem Noted Date Diagnosed Date Dermatochalasis of both upper eyelids 09/17/2022 Loss of peripheral visual field, bilateral 09/17 Meniere's disease, cochleovestibular, active, le ft 09/17/2020 Vestibular migraine 08/20/2020 Assessment & Plan (01/05/2024 3:19 PM CRIMINAL PSYCHOLOGIST): Norman has a longstanding history of vestibular migraines. He has undergone full ENT workup for Meniere's, and vertigo which was unrevealing. He has tried multitude of treatments including topiramate, verapamil, beta blockers which caused several side effects, or did not improve symptoms. He mentions having AFib on Xarelto, pacemaker for ventricular tachycardia. He has only been able to obtain migraine relief sufficiently with Aimovig. He continues to suffer from vertigo daily, and is consulting with specialists Dr. Harden in [facility] Plan: 1. Headache diary 2. Preventative: Continue with Aimovig 140 mg/ml. . -continue with Lamictal tapered as per vestibular specialist. 3. Continue to follow with ENT for further vestibular evaluation. Appreciate their input. 4. Limit caffeine intake 5. Encouraged regular exercise and well-balanced diet 6. Encouraged adequate water intake 7. Follow up: 6 months Assessment & Plan (06/15/2023 1:23 PM CDT): Norman presents today with symptoms consistent with that of vestibular migraines. He has undergone an MRI which was unrevealing for any vascular or structural cause to his headache pattern. His trialed Topamax, verapamil, nortriptyline, amitriptyline, Effexor, and propranolol with no benefit. He did not tolerate gabapentin. He has done remarkably well with Aimovig at 140mg/ml every 30 days. Does note some slight wearing off 2-3 days before his next injection. Recently was started on a low dose of Lamictal and denies that he has had any wearing off her his symptoms. Hopeful that his symptoms continue to improve as he tapers up on his dose. Continues to follow with ENT who is [...] days to prevent the wearing off effect. -continue with Lamictal tapered as per vestibular specialist. 3. Continue to follow with ENT for further vestibular evaluation. Appreciate their input. 4. Limit caffeine intake 5. Encouraged regular exercise and well-balanced diet 6. Encouraged adequate water intake 7. Follow up: 3-4 months Assessment & Plan (09/03/2022 10:49 AM CDT): Norman presents today with symptoms consistent with [...] water intake 7. Follow up: 3-4 months Assessment & Plan (04/09/2022 11:32 AM CRIMINAL PSYCHOLOGIST): Norman presents today with symptoms consistent with that of vestibular migraines. He has undergone an MRI which was unrevealing for any vascular or structural cause to his headache pattern. His trialed Topamax and propranolol with no benefit. He does have a history of glaucoma, therefore does not wish to go on a tricyclic antidepressant. He did a trial of verapamil which was not beneficial on his symptoms. He did not tolerate gabapentin. He has done remarably well with Aimovig at 140mg/ml every 30 [...] days to prevent the wearing off effect. 3. Continue to follow with ENT for further vestibular evaluation. Appreciate their input. 4. Limit caffeine intake 5. Encouraged regular exercise and well-balanced diet 6. Encouraged adequate water intake 7. Follow up: 3 months Assessment & Plan (11/20/2021 1:35 PM CDT): Norman presents today with symptoms consistent with that of vestibular migraines. He has undergone an MRI which was unrevealing for any vascular or structural cause to his headache pattern. His trialed Topamax and propranolol with no benefit. He does have a history of glaucoma, therefore does not wish to go on a tricyclic antidepressant. He did a trial of verapamil which was not beneficial on his symptoms. He has since started Aimovig 70mg/ml every 30 days with adequate headache improvement, desires to trial higher dose as he is not having any side effects and would like to seek further improvement in his symptoms. We discussed doing higher doses of gabapentin, he would like to consider that as second line in his treatment regimen. I would also encourage him to follow back up with ENT for continued vestibular considerations. He has completed vestibular therapy with no improvement in his symtpoms Plan: 1. Headache diary 2. Preventative: Gabapentin 200 mg b.i.d. and 300mg nightly. We will plan to take his dose to 300 mg t.i.d as next steps Increase Aimovig to 140mg/ml every 30 days. 3. Encouraged following back up with ENT for further vestibular evaluation 4. Limit caffeine intake 5. Encouraged regular exercise and well-balanced diet 6. Encouraged adequate water intake 7. Follow up: 3 months Assessment & Plan (09/02/2021 5:08 PM CDT): The patient is a 81-year-old gentleman with a history of vestibular migraine. At this point he is somewhat better on his current dose of gabapentin. Unfortunately he cannot increase the dose further due to dizziness as a side effect. He has failed a large number of other medications. He also cannot take Effexor secondary to glaucoma. I recommended he check with his can worker regarding the possibility of taking a calcium channel jess. This may be beneficial. Alternatively, we may consider a medication like Aimovig. He is going to contact me after he talks to his can worker and I will write a prescription accordingly. Otherwise I will have him follow-up in a few months with Francis. Assessment & Plan (06/05/2021 12:31 PM CDT): Norman presents today with symptoms consistent with that of vestibular migraines. He has undergone an MRI which was unrevealing for any vascular or structural cause to his headache pattern. His trialed Topamax and propranolol with no benefit. He does have a history of glaucoma, therefore does not wish to go on a tricyclic antidepressant. We reviewed other anti seizure medication such as zonisamide and gabapentin. Given the nature of his headaches, do believe he would best benefit from gabapentin. He does note that he is fairly sensitive to medication side effect, therefore we will start him at a low dose of 100 mg t.i.d. and plan to taper him up as tolerated. I have personally reviewed his MRI images which show evidence of chronic small vessel disease and white matter changes which are likely secondary to his history of HTN, high cholesterol, smoking, and atrial fibrillation. Plan: 1. Headache diary 2. Preventative: Gabapentin 100 mg t.i.d. 3. Physical therapy to evaluate and treat for balance disturbance room to vestibular migraine 4. Limit caffeine intake 5. Encouraged regular exercise and well-balanced diet 6. Encouraged adequate water intake 7. Follow up: 2-[address] Gordon, 5-6 months with myself. Current tear of medial cartilage or meniscus of knee 02/01/2019 Pain in limb 02/01/2019 Knee pain 02/01/2019 Lumbar sprain 02/01/2019 Spinal stenosis of lumbar region 02/01/2019 Osteoarthritis of knee 11/30/2018 Nuclear sclerotic cataract, bilateral 07/04/2018 Assessment & Plan (07/06/2018 2:51 PM CDT): Angles are not appositional. Just lens rise and steep. Pt not bothered by glare yet. Recommend following Q6 months with IOP checks and yearly HVF/OCT with optometry. If IOP > 21mmHg or VF changes or cataract symptoms worse refer back for lensectomy +/- TM based surgery. F/U with optometry 6 months Narrow angle glaucoma suspect of both eyes 04/01 Assessment & Plan (07/04/2018 7:11 PM CDT): By CD asymmetry. Does have lens rise and narrowing of angles. Do not recommend LPI unless there is optic nerve changes or HVF changes. A-A OCT, baseline HVF and OCT today. Assessment & Plan (04/01/2018 8:30 AM CRIMINAL PSYCHOLOGIST): By CD asymmetry. Does have lens rise and narrowing of angles. Do not recommend LPI unless there is optic nerve changes or HVF changes. Also has NS symptoms. Will BAT at next visit. F/U when returns from trip. Will get A-A OCT for pupil block. Baseline HVF and OCT. 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 Did not respond to vestibular therapy but does feel that his gait overall improved with therapy services. Currently is not doing PT, does prefer [facility] and wishes to proceed with this again in the fall. Assessment & Plan (04/09/2022 11:33 AM CRIMINAL PSYCHOLOGIST): Has ongoing balance concerns secondary to his vestibular symptoms. Did not respond to vestibular therapy but does feel that his gait overall improved with therapy services. They have noted a recent decline in his gait and wish to have therapy services once again. Requesting [facility] as they had a good experience previously. Order placed for PT for balance and gait training. Persistent insomnia 07/26/2010 Social History Tobacco Use Types Packs/Day Years Used Date Smoking Tobacco: Former Cigarettes Q uit: 1992 Smokeless Tobacco: Never Tobacco Cessation:Counseling Given: Not Answered Alcohol Use Standard Drinks/Week Comments Yes 0 (1 standard drink = 0.6 oz pur e alcohol) AUDIT-C Answer Date Recorded Q1: How often do you have a drink containing alcohol? 4 or more times a week 11/27/2023 Q2: How many drinks containi ng alcohol do you have on a typical day when you are drinking? 1 or 2 Q3: How often do you have si x or more drinks on one occasion? Never 11/27/2023 Personal Safety Answer Date Recorded Have you ever been in or are you currently in a harmful physical or emotional relationship or is someone making you feel afraid or unsafe? Denies 11/27/2023 Sex and Gender Information Value Date Recorded Sex Assigned at Not on file Legal Sex Male 2:00 AM CRIMINAL PSYCHOLOGIST Gender Identity Male 12/19/2019 1:16 PM CDT Sexual Orientation Not on file Last Filed Vital Signs Vital Sign Reading Time Taken Comments Blood Pressure 122/73 07/25/2024 10:28 AM CDT Pulse 80 07/25/2024 10:28 AM CDT Temperature 36.6 C (97.8 F) 07/25/2024 10:28 AM CDT Respiratory Rate 18 07/25/2024 10:28 AM CDT Oxygen Saturation 95% 07/25/2024 10:28 AM CDT Inhaled Oxygen Concentration - - Weight 90.7 kg (200 lb) 07/25/2024 10:28 AM CDT Height 170.2 cm (5' 7) 07/25/2024 10:28 AM CDT Body Mass Index 31.32 07/25/2024 10:28 AM CDT Plan of Treatment Not on file Medical Devices Implanted Type Area Software Technician Device Identifier Shelf Expiration Date Model / Serial / Lot Pacemaker Left: Chest Wall [place] [address] MEDICARE [facility] Address: [facility] [address] [place] [address] [employer] [facility] MEDICARE SUPPLEMENT INSURANCE MEDICARE FOR LIFE CIG MEDICARE SUPPLEMENT INSURANCE FOR LIFE CIGNA MEDICARE SUPPLEMENT INSURANCE MEDICARE Advance Directives For more information, please contact: [phone] * Full Code (Latest Code Status on File) Date Activated Date Inactivated Comments 01/30/2018 10:14 PM 01/31/2018 3:52 PM Care Teams Presiding Judge Relationship Specialty Start Date End Date Osmani Zamorano MD [address] [place] [address] PCP - General 12/07/19 Osmani Zamorano MD [address] [place] [address] 12/07/19 Referral, Self Referring Physician 03/09/18 Blue Pacheco MD [address] DEPT OPHTHALMOLOGY, [address] [address] Surgeon Ophthalmology 11/27/23
--- OUTSIDE RECORDS SUMMARY | 2024-08-29 13:12 | XMS_ITS | Clinical Summary ---
Author Organization [facility] [address] [place] [address] Care Team Providers Care Guest Services Agent Name Role Phone Osmani Zamorano MD Primary Care Provider [phone] Osmani Zamorano MD Unavailable [phone] Referral, Self Unavailable Unavailable YaakovchBlue MD Unavailable [phone] Allergies No known active allergies Medications rivaroxaban [...] 08/20/2020 Assessment & Plan (01/05/2024 3:19 PM ACCELERATOR TECHNICIAN): Norman has a longstanding history of vestibular [...] is consulting with specialists Dr. Harden in [facility] Plan: 1. Headache diary 2. [...] months Assessment & Plan (04/09/2022 11:32 AM ACCELERATOR TECHNICIAN): Norman presents today with symptoms consistent with [...] glaucoma. I recommended he check with his coke production heater regarding the possibility of taking a calcium channel jess. This may be beneficial. Alternatively, we may consider a medication like Aimovig. He is going to contact me after he talks to his coke production heater and I will write a prescription accordingly. [...] today. Assessment & Plan (04/01/2018 8:30 AM ACCELERATOR TECHNICIAN): By CD asymmetry. Does have lens rise [...] fall. Assessment & Plan (04/09/2022 11:33 AM ACCELERATOR TECHNICIAN): Has ongoing balance concerns secondary to his [...] balance and gait training. Persistent insomnia 07/26/2010 Encounters Date Type Department Care Team Description 07/25/2024 10:30 AM CDT Office Visit [facility] Pulmonary [address] 6[address] [place] [address] Meenakshi Navarrete MD Obstructive sleep apnea (Primary Dx) from Last 3 Months Surgical History Surgery Date Site/Laterality Comments CARDIAC CATHETERIZATION 02/23/2017 - 02/22/2018 CARDIAC PACEMAKER PLACEMENT 11/24/2019 - 12/24/2019 KNEE ARTHROSCOPY 02/23/2009 - 02/22/2010 Left x3 RADIOFREQUENCY ABLATION 02/24/2008 - 02/22/2009 CSF SHUNT 02/23/2017 - 02/22/2018 Right R ear shunt, due to possible meneires BLADDER SURGERY 02/23/2023 - 02/23/2024 scraping for bladder cancer COLONOSCOPY Medical History Medical History Date Comments Personal history of other di seases of the circulatory system History of cardiac disorder - (Added by TW Conv) Allergy status to unspecifie d drugs, medicaments and biological substances status History of seasonal allergie s - (Added by TW Conv) Hypertension High cholesterol Cancer (HCC) Prostate Atrial fibrillation (HCC) Migraines vestibular assoc iated migraines Vertigo H/O cardiac radiofrequency ablation Bladder cancer (HCC) Family History Medical History Relation Name Comments Diabetes Brother Cancer Sister Family history of malignant neoplasm - (Added by TW Conv) Hypertension Sister Anesthesia problems Neg Hx Relation Name Status Comments Brother Sister Social History Tobacco Use Types Packs/Day Years Used Date Smoking Tobacco: Former Cigarettes Q uit: 1993 Smokeless Tobacco: Never Tobacco Cessation:Counseling Given: Not [...] on file Legal Sex Male 2:00 AM ACCELERATOR TECHNICIAN Gender Identity Male 12/19/2019 1:16 PM CDT Sexual Orientation Not on file Obstetrics History Last Filed Vital Signs Vital Sign Reading [...] 07/25/2024 10:28 AM CDT Plan of Treatment Health Maintenance Due Date Last Done Comments Depression Screening 1942 Hepatitis B Screening 1960 Zoster Vaccine (1 of 2) 1992 DTaP/Tdap/Td Vaccine (1 - Tdap) 06/21/1998 9 Abdominal Aortic Aneurysm (A AA) Screen 06/12/2007 Well Visit 65+ 06/12/2007 Pneumococcal vaccine 65+ (2 of 2 - PPSV23) 07/13/2015 07/12/2014 Influenza Vaccine (#1) 2024 8, 01/12/2017, 01/09/2016 Fall Risk Assessment 11/26/2024 11/27/2023 Medical Devices Implanted Type Area [employer] Auto Repair Teacher Device Identifier Shelf Expiration Date Model / Serial / Lot Pacemaker Left: Chest Wall Insurance MEDICARE [facility] Address: [address] [address] [place] [address] InSample [facility] MEDICARE SUPPLEMENT INSURANCE MEDICARE FOR LIFE [facility] MEDICARE [place] [address] FOR LIFE [facility] MEDICARE SUPPLEMENT INSURANCE MEDICARE Advance Directives For more information, please contact: [phone] * Full Code (Latest Code Status on File) Date Activated Date Inactivated Comments 01/30/2018 10:14 PM 01/31/2018 3:52 PM Care Teams Guest Services Agent Relationship Specialty Start Date End Date Osmani Zamorano MD [address] [place] [address] PCP - General 12/07/19 Osmani Zamorano MD [address] [place] [address] 12/07/19 Referral, Self Referring Physician 03/09/18 Blue Pacheco MD [address] DEPT OPHTHALMOLOGY, [address] [address] Surgeon Ophthalmology 11/27/23
--- NOTE | 2024-08-29 14:15 | NEURO_ITS ---
Impression: # Complains of numbness of right hand. ? # Moderate right Carpal Tunnel Syndrome. ? # Right ulnar neuropathy across the elbow. ? # Abnormal Needle/EMG exam. Nerve Conduction Studies ?Stim Site NR Peak (ms) P-T Amp (?V) Site1 Site2 Delta-P (ms) Dist (cm) Leonardo (m/s) Right Median Anti Sensory (2-3nd Digit) Wrist ? 7.5 16.6 Wrist 2-3nd Digit 7.5 14.0 19 Wrist ? 8.1 12.7 Wrist 2-3nd Digit 7.5 14.0 19 Right Radial Anti Sensory (Base 1st Digit) Wrist ? 2.7 41.5 Wrist Base 1st Digit 2.7 0.0 Right Ulnar Anti Sensory (5th Digit) Wrist ? 2.9 18.9 Wrist 5th Digit 2.9 14.0 48 ?Stim Site NR Onset (ms) O-P Amp (mV) Site1 Site2 Delta-0 (ms) Dist (cm) Leonardo (m/s) Right Median Motor (Abd Poll Brev) Wrist ? 5.2 0.9 Elbow Wrist 4.7 26.0 55 Elbow ? 9.9 2.4 Right Ulnar Motor (Abd Dig Minimi) Wrist ? 2.3 11.2 A Elbow Wrist 5.7 26.0 46 A Elbow ? 8.0 10.1 B Elbow Wrist 3.9 20.0 51 B Elbow ? 6.2 7.6 Electromyography ?Side Muscle Nerve Root Ins Act Fibs Amp Dur Recrt Comment Right 1stDorInt Ulnar C8-T1 Nml Nml Nml >12ms +1 Right Ext Indicis Radial (Post Int) C7-8 Nml Nml Nml Nml Nml Right Ext Digitorum Radial (Post Int) C7-8 Nml Nml Nml Nml Nml Right BrachioRad Radial C5-6 Nml Nml Nml Nml Nml Right PronatorTeres Median C6-7 Nml Nml Nml Nml Nml Right Abd Poll Brev Median C8-T1 Nml Nml Nml >12ms +1 Right ABD Dig Min Ulnar C8-T1 Nml Nml Nml >12ms +1 Right FlexPolLong Median (Ant Int) C7-8 Nml Nml Nml Nml Nml Right Abd Poll Long Radial (Post Int) C7-8 Nml Nml Nml Nml Nml
== END 2024-08-29 13:01 | disposition home or self-care (01) ==
LOC: ANHNEURO 13:03
PROVIDERS: PCP Family Medicine; Visit Provider Orthopaedic Surgery
DX: G56.01 Carpal tunnel syndrome, right upper limb (principal); G56.21 Lesion of ulnar nerve, right upper limb
CPT/HCPCS: 95886; 95909

== ENCOUNTER 2024-09-01 18:44 | Inpatient (IN) | payer MEDICARE, OTHER, SELFPAY ==
[2024-09-01] VITALS (9 sets, daily range): BP systolic 131–165; BP diastolic 62–89; PULSE 85–98; RESP 14–24; TEMP 36.4; O2SAT 91–99
--- NOTE | ~2024-09-01 | US_ITS ---
US pelvic limited Ordering provider: Jeremy Goldberg MD History: . urinary obstruction . Comparison: None. Technique: Transabdominal ultrasound of the pelvis (Doppler ultrasound interrogation techniques used as needed for this exam.) FINDINGS/impression: Underfilled urinary bladder. Echogenic debris is seen in the urinary bladder which may be stones. Follow-up advised. Reviewed, dictated and finalized at location A.
--- OUTSIDE RECORDS SUMMARY | 2024-09-01 18:46 | XMS_ITS | Continuity of Care Document ---
Author Name [facility] Organization [facility] Care Team Providers Care Magician Helper Name Role Phone [facility] Unavailable Unavailable Medications Combined list of outpatient medications from Department of Defense and Veterans Affairs facilities.Medications provided include 1) outpatient medications from the last 15 months, and 2) patient-reported medications. Medication Details Route Status Patient Instructions Prescription Expires Prescription Number Last Dispense Date Ordering Provider Order Date Order Qty Source Aimovig 140 mg/mL autoinjecto r [1mL] See Instruct ions, # 1 mL, 11 total refill(s ), Hard Stop Complet ed 11/26/2023 4 2023 1.0 Ambulat ory Pharmac y amitriptyli ne 10 mg tablet See Instruct ions, # 30 EA, 5 total refill(s ), Hard Stop Discont inued 10/02/2022 3 2022 30.0 Ambulat ory Pharmac y DULoxetine DR 20 mg capsule = 1 cap(s), Oral, Daily, # 30 EA, 3 total refill(s ), Hard Stop Oral (given by mouth) Ordered 01/05/2025 4 2023 30.0 Ambulat ory Pharmac y erenumab-ao oe 140 mg/mL autoinjecto r [1mL] See Instruct ions, # 1 mL, 5 total refill(s ), Hard Stop Ordered 01/04/2025 5 2024 1.0 Ambulat ory Pharmac y Gemtesa 75 mg tablet 75 mg, Oral, Daily, # 30 EA, 2 total refill(s ), Hard Stop Oral (given by mouth) Complet ed 02/24/2024 4 2024 30.0 Ambulat ory Pharmac y hydrocortis one 25 mg rectal suppository See Instruct ions, # 14 EA, 0 total refill(s ), Hard Stop Complet ed 05/18/2024 4 2024 14.0 Ambulat ory Pharmac y LaMICtal (BRAND) 25 MG ORAL TAB May cause drowsine ss.Avoid exposure to sun.Take or use exactly as directed . 05/31/2024 [id number] 4 2023 90 [employer] Tony GAMING ([facility]) lamoTRIgine ER [Avkare] 25 mg tablet 75 mg, Oral, Daily, # 270 EA, 1 total refill(s ), Hard Stop Oral (given by mouth) Discont inued 01/08/2024 4 2023 270.0 Ambulat ory Pharmac y lamoTRIgine [AvKare] 25 mg tablet = 1 tab(s), Oral, BID, # 60 EA, 1 total refill(s ), Hard Stop Oral (given by mouth) Discont inued 03/02/2024 4 2024 60.0 Ambulat ory Pharmac y lamoTRIgine [AvKare] 25 mg tablet = 1 tab(s), Oral, QID, # 360 EA, 0 total refill(s ), Hard Stop Oral (given by mouth) Discont inued 05/23/2024 5 2024 360.0 Ambulat ory Pharmac y lamoTRIgine [AvKare] 25 mg tablet = 1 tab(s), Oral, QID, # 360 EA, 3 total refill(s ), Soft Stop Oral (given by mouth) Ordered 5 2024 360.0 Ambulat ory Pharmac y lamoTRIgine [AvKare] 25 mg tablet = 1 tab(s), Oral, BID, # 60 EA, 2 total refill(s ), Hard Stop Oral (given by mouth) Discont inued 03/08/2024 5 2024 60.0 Ambulat ory Pharmac y lamoTRIgine [AvKare] 25 mg tablet 25 mg, Oral, Daily, # 90 EA, 3 total refill(s ), Hard Stop Oral (given by mouth) Discont inued 01/08/2024 4 2023 90.0 Ambulat ory Pharmac y LAMOTRIGINE , 25MG, TAB ER2 24, ORAL Obtain advice for OTCs.May cause drowsine ss/dizzi ness.May impair driving. Swallow whole.Ch patito with your doctor before becoming .Do not chew or crush. 06/24/2024 [id number] 4 2023 270 [employer] Tony GAMING ([facility]) metoprolol succinate ER 25 mg/24 hour tablet See Instruct ions, # 180 EA, 1 total refill(s ), Acute Complet ed 06/05/2023 3 2023 180.0 Ambulat ory Pharmac y metoprolol succinate ER 25 mg/24 hour tablet = 1 tab(s), Oral, BID, # 180 EA, 3 total refill(s ), Soft Stop Oral (given by mouth) Ordered 5 2024 180.0 Ambulat ory Pharmac y metoprolol succinate ER 25 mg/24 hour tablet See Instruct ions, # 180 EA, 3 total refill(s ), Hard Stop Complet ed 01/20/2024 3 2023 180.0 Ambulat ory Pharmac y metoprolol succinate ER 25 mg/24 hour tablet See Instruct ions, # 180 EA, 3 total refill(s ), Hard Stop Complet ed 09/22/2023 3 2023 180.0 Ambulat ory Pharmac y metoprolol succinate ER 50 mg/24 hour tablet See Instruct ions, # 90 EA, 3 total refill(s ), Hard Stop Discont inued 09/03/2023 4 2023 90.0 Ambulat ory Pharmac y metoprolol succinate ER 50 mg/24 hour tablet 50 mg, Oral, BID, # 90 EA, 3 total refill(s ), Hard Stop Oral (given by mouth) Discont inued 06/06/2024 5 2024 90.0 Ambulat ory Pharmac y miconazole 2% cream [15g] See Instruct isidro, # 15 g, 0 total refill(s ), Hard Stop Complet ed 05/18/2024 4 2024 15.0 Ambulat ory Pharmac y nortriptyli ne 10 mg oral capsule TAKE 1 CAPSULE (10 MG TOTAL) BY MOUTH NIGHTLY, # 90 EA, 3 total refill(s ), Acute Complet ed 07/15/2023 3 2023 90.0 Ambulat ory Pharmac y nortriptyli ne 25 mg capsule See Instruct ions, # 120 EA, 1 total refill(s ), Hard Stop Ordered 12/22/2024 4 2023 120.0 Ambulat ory Pharmac y rivaroxaban 20 mg tablet See Instruct ions, # 90 EA, 3 total refill(s ), Hard Stop Complet ed 08/23/2024 5 2024 90.0 Ambulat ory Pharmac y rosuvastati n 40 mg tablet = 1 tab(s), Oral, Daily, # 90 EA, 3 total refill(s ), Hard Stop Oral (given by mouth) Ordered 12/20/2024 5 2024 90.0 Ambulat ory Pharmac y rosuvastati n 40 mg tablet See Instruct ions, Oral, Daily, # 90 EA, 3 total refill(s ), Hard Stop Oral (given by mouth) Complet ed 12/01/2023 4 2023 90.0 Ambulat ory Pharmac y tamsulosin 0.4 mg capsule 0.4 mg, Oral, BID, # 60 EA, 11 total refill(s ), Hard Stop Oral (given by mouth) Complet ed 09/26/2023 4 2023 60.0 Ambulat ory Pharmac y tamsulosin 0.4 mg capsule See Instruct ions, # 30 EA, 11 total refill(s ), Hard Stop Complet ed 08/13/2023 3 2023 30.0 Ambulat ory Pharmac y venlafaxine ER 37.5 mg/24 hour capsule See Instruct ions, # 30 EA, 11 total refill(s ), Hard Stop Complet ed 10/02/2023 3 2023 30.0 Ambulat ory Pharmac y venlafaxine ER 37.5 mg/24 hour capsule 37.5 mg, Oral, Daily, # 30 EA, 11 total refill(s ), Hard Stop Oral (given by mouth) Complet ed 04/01/2024 4 2024 30.0 Ambulat ory Pharmac y Xarelto 20 mg tablet See Instruct ions, # 90 EA, 3 total refill(s ), Hard Stop Complet ed 08/11/2023 4 2023 90.0 Ambulat ory Pharmac y Immunizations Combined list of available immunizations from the Department of Defense and Veterans Affairs facilities. Immunization Series Date Given Administered By Site Reaction Lot Number CVX Code Drug Hide Salter Status Comments Source COVID-19, mRNA, LNP-S, PF, 100 mcg or 50 mcg dose 2021 GLENYS [employer] (MOD) Not Given COVID-19, mRNA, LNP-S, PF, 100 mcg or 50 mcg dose [facility] COVID-19, mRNA, LNP-S, PF, 100 mcg or 50 mcg dose 2020 KRISTA [employer] (MOD) Not Given COVID-19, mRNA, LNP-S, PF, 100 mcg or 50 mcg dose DoD hepatitis A adult vaccine 1998 [id number] [employer] complet ed hepatitis A adult vaccine 12/28/98 Given Ambulat ory Pharmac y hepatitis A vaccine, adult dosage 2 1998 Unknown, Provider [id number] Merck (MSD) complet ed hepatitis A vaccine, adult dosage DoD hepatitis A adult vaccine 1998 [id number] [employer] complet ed hepatitis A adult vaccine 06/20/98 Given Ambulat ory Pharmac y tetanus-dipht h toxoids (Td) adult/adol [id number] [facility] complet ed tetanus-d iphth toxoids (Td) adult/ado l 06/20/98 Given Ambulat ory Pharmac y tetanus and diphtheria toxoids, adsorbed, preservative free, for adult use (2 Lf of tetanus toxoid and 2 Lf of diphtheria toxoid) 1 1998 Unknown, Provider [id number] [facility] (CON) complet ed tetanus and diphtheri a toxoids, adsorbed, preservat fabienne free, for adult use (2 Lf of tetanus toxoid and 2 Lf of diphtheri a toxoid) [facility] hepatitis A vaccine, adult dosage 1 1998 Unknown, Provider [id number] Merck (MSD) complet ed hepatitis A vaccine, adult dosage DoD poliovirus vaccine, live, oral 1971 02 complet ed polioviru s vaccine, live, oral 09/15/71 Given Ambulat ory Pharmac y trivalent poliovirus vaccine, live, oral 1 1971 Unknown, Provider 02 () complet ed trivalent polioviru s vaccine, live, oral DoD Procedures Combined list of: 1) Procedures from Department of Veterans Affairs facilities going back up to thelast 18 months, not all [place] non-surgical procedures are included; 2) All procedures from the Department of Defense facilities. Procedure Procedure Type Code Date Perfomer Comments Sourc e No data available for this section Ambulatory P harmacy Social History Combined list of available smoking, tobacco, and other social history from Department of Defense and Veterans Affairs facilities. Social History Type Response Date Comment Sourc e This section is an empty social history section. DoD Assessment and Plan Combined list of future care activities from Department of Defense and Veterans Affairs facilities (e.g., assessment and plan notes, appointments, orders, and referrals). Additional future care activities may be listed in the Plan of Care section. Result Assessment and Plan Date Source Assessment and Plan No data available for this section 09/01/2024 Ambulatory Pharmacy Functional Status Combined list of recent functional and cognitive assessments recorded at Department of Defense and Veterans Affairs ([place]).VA Functional Kincaid Measurement (FIM) Scale: 1 = Total Assistance (Subject = 0% +), 2 = Maximal Assistance (Subject = 25% +), 3 = Moderate Assistance (Subject = 50% +), 4 = Minimal Assistance (Subject = 75% +), 5 = Supervision, 6 = Modified Kincaid (Device), 7 = Complete Kincaid (Timely, Safely). Assessment Date/Time Source Assessment Type Assessment Skill Assessment Score Assessment Details No data available for this section
--- OUTSIDE RECORDS SUMMARY | 2024-09-01 18:46 | XMS_ITS | Encounter Summary ---
Author Organization [facility] Address [address] [place] [address] Phone Care Team Providers Care Exhaust And Muffler Repairer Name Role Phone Osmani Zamorano MD Primary Care Provider [phone] Osmani Zamorano MD Unavailable [phone] Referral, Self Unavailable Unavailable YaakovchBlue MD Unavailable [phone] Encounter Details Date Type Department Care Team [...] on file Legal Sex Male 2:00 AM BRICK OR BLOCK MAKER Gender Identity Male 12/19/2019 1:16 PM CDT [...] on filedocumented in this encounter Care Teams Exhaust And Muffler Repairer Relationship Specialty Start Date End Date Osmani Zamorano MD [address] [place] [address] PCP - General 12/07/19 Osmani Zamorano MD [address] [place] [address] 12/07/19 Referral, Self Referring Physician 03/09/18 Blue Pacheco MD [address] DEPT OPHTHALMOLOGY, [address] [address] Surgeon Ophthalmology 11/27/23 documented as of this encounter
--- OUTSIDE RECORDS SUMMARY | 2024-09-01 18:46 | XMS_ITS | Clinical Summary ---
Author Organization [facility] [address] [place] [address] Care Team Providers Care Plate Stacker Name Role Phone Osmani Zamorano MD Primary Care Provider [phone] Osmani Zamorano MD Unavailable [phone] Referral, Self Unavailable Unavailable YaakovchBlue MD Unavailable [phone] Allergies No known active allergies Medications rivaroxaban [...] 08/20/2020 Assessment & Plan (01/05/2024 3:19 PM MACHINE BRUSH MAKER): Norman has a longstanding history of vestibular [...] is consulting with specialists Dr. Harden in [facility] Plan: 1. Headache [...] months Assessment & Plan (04/09/2022 11:32 AM MACHINE BRUSH MAKER): Norman presents today with symptoms consistent with [...] glaucoma. I recommended he check with his parachute repairer regarding the possibility of taking a calcium channel jess. This may be beneficial. Alternatively, we may consider a medication like Aimovig. He is going to contact me after he talks to his parachute repairer and I will write a prescription accordingly. [...] today. Assessment & Plan (04/01/2018 8:30 AM MACHINE BRUSH MAKER): By CD asymmetry. Does have lens rise [...] fall. Assessment & Plan (04/09/2022 11:33 AM MACHINE BRUSH MAKER): Has ongoing balance concerns secondary to his [...] Description 07/25/2024 10:30 AM CDT Office Visit [facility] Pulmonary [address] [address] 6th [address] [place] [address] Meenakshi Navarrete MD Obstructive sleep [...] on file Legal Sex Male 2:00 AM MACHINE BRUSH MAKER Gender Identity Male 12/19/2019 1:16 PM [...] 11/26/2024 11/27/2023 Medical Devices Implanted Type Area Sox Analyst Device Identifier Shelf Expiration Date Model / Serial / Lot Pacemaker Left: Chest Wall Insurance MEDICARE [facility] Address: [address] [address] [place] [address] [employer] [facility] MEDICARE SUPPLEMENT INSURANCE MEDICARE FOR LIFE [facility] MEDICARE [place]PPLE[place] [address] FOR LIFE [facility] MEDICARE SUPPLEMENT INSURANCE MEDICARE Advance Directives For more information, please contact: [phone] * Full Code (Latest Code Status on File) Date Activated Date Inactivated Comments 01/30/2018 10:14 PM 01/31/2018 3:52 PM Care Teams Plate Stacker Relationship Specialty Start Date End Date Osmani Zamorano MD [address] [place] [address] PCP - General 12/07/19 Osmani Zamorano MD [address] [place] [address] 12/07/19 Referral, Self Referring Physician 03/09/18 Blue Pacheco MD [address] DEPT OPHTHALMOLOGY, [address] [address] Surgeon Ophthalmology 11/27/23
--- OUTSIDE RECORDS SUMMARY | 2024-09-01 18:46 | XMS_ITS | Clinical Summary ---
Author Organization [facility] [employer] Address [address] [place] [address] Care Team Providers Care Structural Engineering Project Manager Name Role Phone Osmani Zamorano MD Primary Care Provider [phone] Source Comments [facility],non-owned Affiliates and Associated Physician Practices is amultiple site organization consisting of ambulatory clinics and hospital sitesin [place], [place], [place] and [place]. This disclosure is being madepursuant to the Care Everywhere program and may not contain all information available regarding this patient. Last updated 17.[facility] [employer] Allergies Active Allergy Reactions Criticality Noted Date [...] [facility] Heart [facility] Vascular [place] [id number] [facility] [facility] [address] [place] [address] Jordi Sharma MD Sick sinus syndrome due [...] AM CDT Legal Sex Male 11:31 AM TABLE AND DESK FINISHER Gender Identity Male 09/16/2021 10:09 AM CDT [...] Center Heart & Vascular [facility] [address] [facility], [address] [place] [address] [place] [address] [facility] [address] [place] [address] 11/25/2024 11:30 AM CDT Office Visit [facility] Vascular Care [address] [facility] [place] [address] Shantel Samuel, RESET MERCHANDISER-CARROTING MACHINE OFFBEARER [address] [place] [address] Health Maintenance Due Date Last [...] dysfunction (HCC) from Last 3 Months Insurance [employer] MEDICARE [facility] INSURANCE COMPANY [place] [address] [facility] SARAH GARCIA [id number] [facility] MEDICARE [place] [employer] [facility] MEDICARE Care Teams Structural Engineering Project Manager Relationship Specialty Start Date End Date Osmani Zamorano MD [address] [place] [address] [place] [address] PCP - General Family Medicine 05/24/21
--- OUTSIDE RECORDS SUMMARY | 2024-09-01 18:46 | XMS_ITS | Referral Summary ---
Author Organization [facility] 1 Address [address] [place] [address] Care Team Providers Care Rag Sorter And Cutter Name Role Phone Osmani Zamorano MD Primary Care Provider [phone] Osmani Zamorano MD Unavailable [phone] Referral, Self Unavailable Unavailable YaakovchBlue MD Unavailable [phone] Encounters Date Type Department Care Team Description 07/25/2024 10:30 AM CDT Office Visit [facility] Pulmonary [address] [facility] 6th Floor [address] [place] [address] Meenakshi Navarrete MD Obstructive sleep [...] 08/20/2020 Assessment & Plan (01/05/2024 3:19 PM VENEER JOINTER OFFBEARER): Norman has a longstanding history of vestibular [...] is consulting with specialists Dr. Harden in [facility] Plan: 1. Headache diary 2. Preventative: Continue [...] months Assessment & Plan (04/09/2022 11:32 AM VENEER JOINTER OFFBEARER): Norman presents today with symptoms consistent with [...] glaucoma. I recommended he check with his assembler handbags regarding the possibility of taking a calcium channel jess. This may be beneficial. Alternatively, we may consider a medication like Aimovig. He is going to contact me after he talks to his assembler handbags and I will write a prescription accordingly. [...] today. Assessment & Plan (04/01/2018 8:30 AM VENEER JOINTER OFFBEARER): By CD asymmetry. Does have lens rise [...] fall. Assessment & Plan (04/09/2022 11:33 AM VENEER JOINTER OFFBEARER): Has ongoing balance concerns secondary to his [...] on file Legal Sex Male 2:00 AM VENEER JOINTER OFFBEARER Gender Identity Male 12/19/2019 1:16 PM CDT [...] on file Medical Devices Implanted Type Area Web Master Device Identifier Shelf Expiration Date Model / Serial / Lot Pacemaker Left: [place] [address] MEDICARE [employer] [facility] MEDICARE SUPPLEMENT INSURANCE MEDICARE FOR LIFE CIG MEDICARE SUPPLEMENT INSURANCE FOR LIFE CIGNA MEDICARE SUPPLEMENT INSURANCE MEDICARE Advance Directives For more information, please contact: [phone] * Full Code (Latest Code Status on File) Date Activated Date Inactivated Comments 01/30/2018 10:14 PM 01/31/2018 3:52 PM Care Teams Rag Sorter And Cutter Relationship Specialty Start Date End Date Osmani Zamorano MD [address] [place] [address] PCP - General 12/07/19 Osmani Zamorano MD [address] [place] [address] 12/07/19 Referral, Self Referring Physician 03/09/18 Blue Pacheco MD [address] DEPT OPHTHALMOLOGY, [address] [address] Surgeon Ophthalmology 11/27/23
--- OUTSIDE RECORDS SUMMARY | 2024-09-01 18:46 | XMS_ITS | Clinical Summary ---
Author Organization [facility] Address [facility] [place] [address] Care Team Providers Care Brazer Resistance Name Role Phone Osmani Zamorano MD Primary Care Provider [phone] Allergies No known active allergies Medications HYDROcodone-acet [...] visual field, bilateral 09/17 Chest pain 02/09/2022 BOONE (dyspnea on exertion) 02/09/2022 Cardiac pacemaker in situ 05/26/2021 Paroxysmal atrial fibrillation ([facility]) 04/11/2021 Meniere's disease, cochleovestibular, active, le ft [...] Comments Blood Pressure 165/60 12/30/2022 1:52 AM CUPOLA MELTING SUPERVISOR Pulse 71 12/30/2022 1:52 AM CUPOLA MELTING SUPERVISOR Temperature 36.3 C (97.4 F) 12/30/2022 1:52 AM CUPOLA MELTING SUPERVISOR Respiratory Rate 18 12/30/2022 1:52 AM CUPOLA MELTING SUPERVISOR Oxygen Saturation 97% 12/30/2022 1:52 AM CUPOLA MELTING SUPERVISOR Inhaled Oxygen Concentration - - Weight 88.5 kg (195 lb) 12/30/2022 1:52 AM CUPOLA MELTING SUPERVISOR Height 170.2 cm (5' 7) 12/30/2022 1:52 AM CUPOLA MELTING SUPERVISOR Body Mass Index 30.54 12/30/2022 1:52 AM CUPOLA MELTING SUPERVISOR Plan of Treatment Health Maintenance Due Date [...] age to complete this topic Insurance MEDICARE [facility] [employer] [facility] Care Teams Brazer Resistance Relationship Specialty Start Date End Date Osmani Zamorano MD [address] [place] [address] PCP - General FAMILY PRACTICE 08/21/21
--- OUTSIDE RECORDS SUMMARY | 2024-09-01 18:46 | XMS_ITS | Continuity of Care Document ---
Author Organization [facility] Address [address] [facility] [address] [place] [address] Phone Care Team Providers Care Baton Teacher Name Role Phone Roby Raza Unavailable Unavailable Procedures Procedure Date Visual Field Examination-Rylee Hayden Visual Field Examination(s) Office/outpatient Visit, Est Optic Nerve Head Eval No Script Office/outpatient Visit, Est Advance Directives Directive Yes / No Effective Date File Name No Information Encounters Encounter Description Practice Location Reason(s) For Visit Diagnoses Date Provider Providers Copied on Encounter [facility], [address], [place], [place], [address], tel:[phone] [facility] No Information Dec-200 [address] [facility] [address], [address], [place], [place], [facility], . tel:[phone] Referring Provider: Margi Tiwari [facility], [place], [place], [facility]. tel:[phone] [facility], [address], [place], [place], [address], tel:[phone] [facility] No Information Dec- 4[address] Marg[facility] [address], [place], [address], . tel:[phone] Referring Provider: Margi Tiwari [facility] [address], [place], [address]. tel:[phone] Office/outpat ient Visit, [facility], [address], [place], [place], [address], tel:[phone] [facility] No Information Oct-0 8-200 9 Doisy Edward. [address] [facility] , [address], [place], [address], [place]. tel:[phone] Office/outpat ient Visit, [facility], [address], [place], [place], [id number], [place] tel:[phone] [facility] No Information Sep-2 1-200 7 Doisy Edward. [facility] , [address], [place], [address], . tel:[phone] Family History Family Member Type Diagnosis Age At Onset No Information Payers Payer name Insurance type Covered republican ID Authoriza tion(s) [place] [id number] Social History Type Description Quantity Date Captured Comments Sex Male Smoking Status No Information Chief Complaint And Reason For Visit No Information Reason For Referral Reason For Referral No Information History Of Present Illness Encounter Date Complaint History Of Prese nt Illness No Information Functional Status Date Functional Assessmen t No Information Instructions Date Instruction Additional Infor mation No Information Assessments Type Assessment Date No Information Patient Care Teams Name Effective Dates (start - stop) Status Members No Information
[2024-09-01 20:25] LABS: Hematocrit 43.9 % (42.0-52.0); Hemoglobin 14.1 g/dL (14.0-18.0); Immature Granulocyte Percent A 0.6 % (0-0.5); Lymphocytes Absolute Auto 1.03 K/mm3 (0.9-3.2); Mean Corpuscular HGB Conc 32.1 g/dl (32-36); Mean Corpuscular Hemoglobin 28.5 pg (26-34); Mean Corpuscular Volume 88.9 fl (80-100); Nucleated Red Blood Cells Absolute Auto 0.000 K/mm3 (0.0-0.012); Nucleated Red Blood Cells Perc 0.0 % (0.0-0.2); Platelet Count Result 274 k/mm3 (150-375); Red Blood Count 4.94 M/mm3 (4.6-6.20); White Blood Count 8.2 K/mm3 (4.5-10.0)
[2024-09-01] MEDS: SODIUM CHLORIDE 0.9% IV 1,000 ML 999 ML IV CONT (20:29)
[2024-09-01 20:42] LABS: Alanine Aminotransferase 37 U/L (6-50); Albumin Level 4.5 g/dL (3.5-5.1); Alkaline Phosphatase 93 U/L (38-126); Anion Gap 10 mmol/L (4-12); Aspartate Amino Transferase 55 U/L (17-59); Bilirubin,Total 0.5 mg/dL (0.2-1.3); Blood Urea Nitrogen 19 mg/dL (9-20); Calcium 9.5 mg/dL (8.4-10.2); Carbon Dioxide 25 mmol/L (22-30); Chloride 104 mmol/L (98-107); Estimated CRCL calculation 40 ml/min; Estimated Glomerular Filt Rate 51; Glucose 125 mg/dL (65-110); Lipase 198 U/L (23-300); Magnesium 2.3 mg/dL (1.6-2.3); Potassium 4.5 mmol/L (3.4-5.0); Sodium 139 mmol/L (137-145); Total Protein 8.7 g/dL (6.3-8.2)
--- OUTSIDE RECORDS SUMMARY | 2024-09-01 20:50 | XMS_ITS | Clinical Summary ---
Author Organization [facility] [employer] Address [address] [facility] [place] [address] Care Team Providers Care Oil Burner Journeyman Name Role Phone Osmani Zamorano MD Primary Care Provider [phone] Source Comments [facility],non-owned Affiliates and Associated Physician Practices is amultiple site organization consisting of ambulatory clinics and hospital sitesin [place], [place], [place] and [place]. This disclosure is being madepursuant to the Care Everywhere program and may not contain all information available regarding this patient. Last updated 17.[facility] [employer] Allergies Active Allergy Reactions Criticality Noted Date [...] Description 08/22/2024 8:15 AM CDT Clinical Support [facility] [place] [id number] [facility], [facility] [address] [place] [address] Jordi Sharma MD Sick sinus syndrome due [...] CDT Legal Sex Male 11:31 AM DIRECTOR OF SAFETY AND SECURITY Gender Identity Male 09/16/2021 10:09 AM CDT [...] Description 11/21/2024 8:15 AM CDT Clinical Support [facility] [address] [facility], [address] [place] [address] [place] [address] [facility] [address] [place] [address] 11/25/2024 11:30 AM CDT Office Visit [facility] Care [address] [facility] [place] [address] Shantel Samuel, RETAIL ASSOCIATE MANAGER BILINGUAL-JOGGER OPERATOR [address] [place] [address] Health Maintenance Due Date Last [...] dysfunction (HCC) from Last 3 Months Insurance [employer] INSURANCE COMPANY MEDICARE [facility] INSURANCE [place] [address] [facility] SARAH GARCIA [id number] [facility] MEDICARE [place] [employer] [facility] [employer] Address: [address] [place] [address] MEDICARE Care Teams Oil Burner Journeyman Relationship Specialty Start Date End Date Osmani Zamorano MD [address] [place] [address] [place] [address] PCP - General Family Medicine 05/24/21
--- OUTSIDE RECORDS SUMMARY | 2024-09-01 20:50 | XMS_ITS | Clinical Summary ---
Author Organization [facility] Address [facility] [place] [address] Care Team Providers Care Mysql Dba Name Role Phone Osmani Zamorano MD Primary Care Provider Allergies No known active allergies Medications HYDROcodone-acet [...] pacemaker in situ 05/26/2021 Paroxysmal atrial fibrillation ([facility]) 04/11/2021 Meniere's disease, cochleovestibular, active, le ft [...] Comments Blood Pressure 165/60 12/30/2022 1:52 AM LOCK OPERATOR Pulse 71 12/30/2022 1:52 AM LOCK OPERATOR Temperature 36.3 C (97.4 F) 12/30/2022 1:52 AM LOCK OPERATOR Respiratory Rate 18 12/30/2022 1:52 AM LOCK OPERATOR Oxygen Saturation 97% 12/30/2022 1:52 AM LOCK OPERATOR Inhaled Oxygen Concentration - - Weight 88.5 kg (195 lb) 12/30/2022 1:52 AM LOCK OPERATOR Height 170.2 cm (5' 7) 12/30/2022 1:52 AM LOCK OPERATOR Body Mass Index 30.54 12/30/2022 1:52 AM LOCK OPERATOR Plan of Treatment Health Maintenance Due Date [...] age to complete this topic Insurance MEDICARE [facility] [employer] [facility] Care Teams Mysql Dba Relationship Specialty Start Date End Date Osmani Zamorano MD [address] [place] [address] PCP - General FAMILY PRACTICE 08/21/21
--- OUTSIDE RECORDS SUMMARY | 2024-09-01 20:50 | XMS_ITS | Referral Summary ---
Author Organization [facility] 1 Address [address] [place] [address] Care Team Providers Care Refuse Laborer Name Role Phone Osmani Zamorano MD Primary Care Provider [phone] Osmani Zamorano MD Unavailable [phone] Referral, Self Unavailable Unavailable YaakovchBlue MD Unavailable [phone] Encounters Date Type Department Care Team Description 07/25/2024 10:30 AM CDT Office Visit [facility] Pulmonary [address] [facility] 6th Floor [address] [place] [address] Meenakshi Navarrete MD Obstructive sleep [...] 08/20/2020 Assessment & Plan (01/05/2024 3:19 PM SOLVENT MIXER): Norman has a longstanding history of vestibular [...] is consulting with specialists Dr. Harden in [facility] Plan: 1. Headache diary 2. Preventative: [...] months Assessment & Plan (04/09/2022 11:32 AM SOLVENT MIXER): Norman presents today with symptoms consistent with [...] glaucoma. I recommended he check with his yard jacker regarding the possibility of taking a calcium channel jess. This may be beneficial. Alternatively, we may consider a medication like Aimovig. He is going to contact me after he talks to his yard jacker and I will write a prescription accordingly. [...] today. Assessment & Plan (04/01/2018 8:30 AM SOLVENT MIXER): By CD asymmetry. Does have lens rise [...] fall. Assessment & Plan (04/09/2022 11:33 AM SOLVENT MIXER): Has ongoing balance concerns secondary to his [...] on file Legal Sex Male 2:00 AM SOLVENT MIXER Gender Identity Male 12/19/2019 1:16 PM CDT [...] on file Medical Devices Implanted Type Area Fresh Meat Grader Device Identifier Shelf Expiration Date Model / Serial / Lot Pacemaker Left: Chest [place] [address] MEDICARE [employer] [facility] MEDICARE SUPPLEMENT INSURANCE MEDICARE FOR LIFE CIG MEDICARE SUPPLEMENT INSURANCE FOR LIFE CIGNA MEDICARE SUPPLEMENT INSURANCE MEDICARE Advance Directives For more information, please contact: [phone] * Full Code (Latest Code Status on File) Date Activated Date Inactivated Comments 01/30/2018 10:14 PM 01/31/2018 3:52 PM Care Teams Refuse Laborer Relationship Specialty Start Date End Date Osmani Zamorano MD [address] [place] [address] PCP - General 12/07/19 Osmani Zamorano MD [address] [place] [address] 12/07/19 Referral, Self Referring Physician 03/09/18 Blue Pacheco MD [address] DEPT OPHTHALMOLOGY, [address] [address] Surgeon Ophthalmology 11/27/23
--- OUTSIDE RECORDS SUMMARY | 2024-09-01 20:50 | XMS_ITS | Encounter Summary ---
Author Organization [facility] Address [address] [place] [address] Phone Care Team Providers Care Dyer Assistant Name Role Phone Osmani Zamorano MD Primary Care Provider [phone] Osmani Zamorano MD Unavailable [phone] Referral, Self Unavailable Unavailable YaakovchBlue MD Unavailable [phone] Encounter Details Date Type Department Care Team [...] on file Legal Sex Male 2:00 AM ELECTRONICS RESEARCH ENGINEER Gender Identity Male 12/19/2019 1:16 PM CDT [...] on filedocumented in this encounter Care Teams Dyer Assistant Relationship Specialty Start Date End Date Osmani Zamorano MD [address] [place] [address] PCP - General 12/07/19 Osmani Zamorano MD [address] [place] [address] 12/07/19 Referral, Self Referring Physician 03/09/18 Blue Pacheco MD [address] DEPT OPHTHALMOLOGY, [address] [address] Surgeon Ophthalmology 11/27/23 documented as of this encounter
--- OUTSIDE RECORDS SUMMARY | 2024-09-01 20:50 | XMS_ITS | Continuity of Care Document ---
Author Name [facility] Organization [facility] Care Team Providers Care Machine Hoop Maker Helper Name Role Phone [facility] Unavailable Unavailable Medications Combined list of outpatient [...] or use exactly as directed . 05/31/2024 [id number] 4 2023 90 [employer] Tony GAMING ([facility]) lamoTRIgine ER [Avkare] 25 mg tablet 75 [...] becoming .Do not chew or crush. 06/24/2024 [id number] 4 2023 270 [employer] Tony GAMING ([facility]) metoprolol succinate ER 25 mg/24 hour tablet [...] Site Reaction Lot Number CVX Code Drug Route Salesman Status Comments Source COVID-19, mRNA, LNP-S, PF, 100 mcg or 50 mcg dose 2021 GLENYS [facility] [employer] ([place]) Not Given COVID-19, mRNA, LNP-S, PF, 100 mcg or 50 mcg dose [facility] COVID-19, mRNA, LNP-S, PF, 100 mcg or 50 mcg dose 2020 KRISTA [facility] [place] [employer] ([place]) Not Given COVID-19, mRNA, LNP-S, [...] Pharmac y tetanus-dipht h toxoids (Td) adult/adol [id number] [facility] complet ed tetanus-d iphth toxoids (Td) adult/ado l 06/20/98 Given Ambulat ory Pharmac y tetanus and diphtheria toxoids, adsorbed, preservative free, for adult use (2 Lf of tetanus toxoid and 2 Lf of diphtheria toxoid) 1 1998 Unknown, Provider [id number] 09 [facility] (CON) complet ed tetanus and diphtheri a toxoids, adsorbed, preservat fabienne free, for adult use (2 Lf of tetanus toxoid and 2 Lf of diphtheri a toxoid) [facility] hepatitis A vaccine, adult dosage 1 1998 [...] up to thelast 18 months, not all [place] non-surgical procedures are included; 2) All procedures [...] Plan No data available for this section 09/02/2024 Ambulatory Pharmacy Functional Status Combined list of recent functional and cognitive assessments recorded at [facility] ([place]).VA Functional [place] Measurement (FIM) Scale: 1 = Total Assistance (Subject = 0% +), 2 = Maximal Assistance (Subject = 25% +), 3 = Moderate Assistance (Subject = 50% +), 4 = Minimal Assistance (Subject = 75% +), 5 = Supervision, 6 = Modified [place] (Device), 7 = Complete [place] (Timely, Safely). Assessment Date/Time Source Assessment Type Assessment Skill Assessment Score Assessment Details No data available for this section
--- OUTSIDE RECORDS SUMMARY | 2024-09-01 20:50 | XMS_ITS | Continuity of Care Document ---
Author Organization [facility] Address [address] [facility] [address] [place] [address] Phone Care Team Providers Care Motion Designer Name Role Phone Roby Raza Unavailable Unavailable Procedures Procedure Date Visual Field Examination-Rylee Hayden Visual Field Examination(s) Office/outpatient Visit, Est Optic Nerve Head Eval No Script Office/outpatient Visit, Est Advance Directives Directive Yes / No Effective Date File Name No Information Encounters Encounter Description Practice Location Reason(s) For Visit Diagnoses Date Provider Providers Copied on Encounter [facility], [address], [place], [place], [address], tel:[phone] [facility] No Information Dec-200 [address]. Margi [facility] [address]mann, [address], [place], [place], [facility], . tel:[phone] Referring Provider: Margi Tiw[facility] [address], [place], [place], [facility]. tel:[phone] [facility], [address], [place], [place], [address], tel:[phone] [facility] No Information Dec- 4200 [address] Marg[facility] [address], [place], [address], . tel:[phone] Referring Provider: Margi Tiwari [facility] [address], [place], [address]. tel:[phone] Office/outpat ient Visit, [facility], [address], [place], [place], [address], tel:[phone] SEC [facility] No Information Oct-0 8-200 9 Doisy Edward. [address] [facility] , [address], [place], [address], [place]. tel:[phone] Office/outpat ient Visit, [facility], [address], [place], [place], [address], [place] tel:[phone] SEC [facility] No Information Sep-2 1-200 7 Doisy Edward. [facility] , [address], [place], [address], . tel:[phone] Family History Family Member Type Diagnosis Age At Onset No Information Payers Payer name Insurance type Covered constitution party ID Authoriza tion(s) [place] [id number] Social History Type Description Quantity Date Captured [...]
--- OUTSIDE RECORDS SUMMARY | 2024-09-01 20:50 | XMS_ITS | Clinical Summary ---
Author Organization [facility] [address] [place] [address] Care Team Providers Care Nutrition Instructor Name Role Phone Osmani Zamorano MD Primary Care Provider [phone] Osmani Zamorano MD Unavailable [phone] Referral, Self Unavailable Unavailable YaakovchBlue MD Unavailable [phone] Allergies No known active allergies Medications rivaroxaban [...] 08/20/2020 Assessment & Plan (01/05/2024 3:19 PM RACING MECHANIC): Norman has a longstanding history of vestibular [...] consulting with specialists Dr. Harden in [facility] Plan: 1. Headache diary 2. [...] months Assessment & Plan (04/09/2022 11:32 AM RACING MECHANIC): Norman presents today with symptoms consistent with [...] glaucoma. I recommended he check with his client service professional regarding the possibility of taking a calcium channel jess. This may be beneficial. Alternatively, we may consider a medication like Aimovig. He is going to contact me after he talks to his client service professional and I will write a prescription accordingly. [...] today. Assessment & Plan (04/01/2018 8:30 AM RACING MECHANIC): By CD asymmetry. Does have lens rise [...] fall. Assessment & Plan (04/09/2022 11:33 AM RACING MECHANIC): Has ongoing balance concerns secondary to his [...] Description 07/25/2024 10:30 AM CDT Office Visit [facility] Pulmonary [address] [facility] 6th Floor [address] [place] [address] Meenakshi Navarrete MD Obstructive sleep [...] on file Legal Sex Male 2:00 AM RACING MECHANIC Gender Identity Male 12/19/2019 1:16 PM CDT [...] 11/26/2024 11/27/2023 Medical Devices Implanted Type Area Fitness And Wellness Director Device Identifier Shelf Expiration Date Model / Serial / Lot Pacemaker Left: Chest Wall Insurance MEDICARE [employer] [facility] MEDICARE SUPPLEMENT INSURANCE MEDICARE FOR LIFE [facility] MEDICARE [place] [address] FOR LIFE [facility] MEDICARE SUPPLEMENT INSURANCE MEDICARE Advance Directives For more information, please contact: [phone] * Full Code (Latest Code Status on File) Date Activated Date Inactivated Comments 01/30/2018 10:14 PM 01/31/2018 3:52 PM Care Teams Nutrition Instructor Relationship Specialty Start Date End Date Osmani Zamorano MD [address] [place] [address] PCP - General 12/07/19 Osmani Zamorano MD [address] [place] [address] 12/07/19 Referral, Self Referring Physician 03/09/18 Blue Pacheco MD [address] DEPT OPHTHALMOLOGY, [address] [address] Surgeon Ophthalmology 11/27/23
[2024-09-01] MEDS: LIDOCAINE 2% GEL UROJET 10 ML PKG (21:20)
[2024-09-01] MEDS: ONDANSETRON INJ 4 MG/2 ML VIAL IV PUSH (21:20)
[2024-09-01] MEDS: MORPHINE SULFATE (*CRX) 2 MG/ML INJ IV PUSH (21:20)
--- NOTE | 2024-09-01 21:23 | ED.GENADULT ---
HPI - General Adult General Chief complaint: Urogenital-Male Stated complaint: blood in urine and pain Time Seen by Provider: 09/01/24 20:06 History of Present Illness HPI narrative: Patient is an 84-year-old male who presents emergency department this evening complaining of passing blood clots. States that he had a BCG procedure performed this past Thursday by Dr. Herbert and states that he has been passing blood clots and having hematuria. He does take Xarelto. Patient states that today he got to a point where he felt as though he could not pee and that he has an obstruction states that he has not been able to pee for the past 3 hours. He does have a lot of bladder spasms but cannot take oxybutynin due to reaction of hallucinating and vivid dreams. Related Data Home Medications ?Medication ?Instructions ?Recorded ?Confirmed ?Last Taken ?Type erenumab-aooe 140 mg/mL 140 mg subcut MONTHLY MIGRAINS 08/28/22 08/02/24 02/14/23 History subcutaneous auto-injector (Aimovig Autoinjector) rivaroxaban 20 mg tablet (Xarelto) 20 mg PO DAILY 08/28/22 08/02/24 12/13/23 History metoprolol succinate 50 mg 50 mg PO HS 11/09/23 08/02/24 12/14/23 21:00 History tablet,extended release 24 hr magnesium oxide 500 mg capsule 500 mg PO DAILY 12/07/23 08/02/24 Unknown History Allergies Allergy/AdvReac Type Severity Reaction Status Date / Time oxybutynin (From Ditropan) AdvReac Hallucinating, Verified 09/01/24 18:49 VIVID DREAMING propanolol AdvReac Severe Chills, Uncoded 09/01/24 18:49 TREMORS Review of Systems Review of Systems: All systems are reviewed and are negative unless stated otherwise in the HPI. [facility] Past Medical History Medical History Essential (primary) hypertension Anemia of chronic disease Bladder cancer high grade papillary urothelial carcinoma, noninvasive Chest pain Hematuria Vertigo migraine associated Personal history of malignant neoplasm of prostate Prediabetes Mixed hyperlipidemia Stage 2 chronic kidney disease Chronic kidney disease, stage 3a Hypertensive chronic kidney disease with stage 1 through stage 4 chronic kidney disease, or unspecified chronic kidney disease Surgical History Surgical History History of cardiac pacemaker 2020 Social History Social History Smoking packs per day: 1 Smoking cigarettes per day: 20.0 Years smoked: 30 Smoking pack-years: 30.00 Smoking status: Former smoker Tobacco type: cigarettes Second hand tobacco smoke exposure: No Smoking end date: 08/23/92 Alcohol intake: current Drinks per week: 7 Alcohol use details: 1 WINE/DAY Substance use: never Substance use type: does not use Do You Feel Safe in your Home?: Yes Lack of Transportation: No Lack of Food: Never True Current Housing: I Have Housing Concerned About Future Housing: No Difficulty Paying Gas/Electric Bills: No Difficulty Paying for Meds: No Currently Unemployed: No Education: High School Diploma/GED Difficulty w/ Childcare or Family Care: No Living arrangements: alone Additional living arrangements comments: Occupation/Education: retired Gender identity (if verbalized by the patient): Male Sexual Orientation (if Verbalized by the Patient): Straight or Heterosexual Spiritual care concerns: No Exam Narrative: General: Alert, awake, afebrile, in no acute distress. HEENT: PERRL, no rhinorrhea, no post nasal drip, oropharynx clear. Neck: Trachea midline, no JVD, no lymphadenopathy. Cardiovascular: Regular rate and rhythm, no murmurs, rubs or gallops, no peripheral edema. Respiratory: Clear to auscultation bilaterally, no tachypnea, no wheezing, no rhonchi, no rubs, no respiratory distress. Abdomen: Soft, nontender, nondistended, no rebound, no guarding, no peritoneal signs. Musculoskeletal: No joint swelling or deformity, normal muscle tone. Skin: No rashes or petechia, no signs of infection. Psychiatric: Alert and oriented, normal behavior and judgment for situation. Neurological: Alert and oriented to person, place, and time. Follows all commands. No focal deficits, speech is clear and fluent. Course Vital Signs Vital signs: Vital Signs Temperature 97.6 F 09/01/24 18:48 Pulse Rate 93 09/01/24 18:48 Respiratory Rate 18 09/01/24 18:48 Blood Pressure 142/82 H 09/01/24 18:48 Pulse Oximetry 96 09/01/24 18:48 Temperature 97.6 F 09/01/24 18:48 Pulse Rate 98 09/01/24 20:31 Respiratory Rate 24 H 09/01/24 20:31 Blood Pressure 165/89 H 09/01/24 20:31 Pulse Oximetry 99 09/01/24 20:31 Oxygen Delivery Room Air 09/01/24 20:31 Medical Decision Making MDM Narrative Medical decision making narrative: The patient was evaluated by myself in the emergency department. History is obtained from patient who is an independent historian and physical exam was performed. External medical records were reviewed at this time. IV was established and pertinent tests were ordered. Three way Gil catheter was placed at this time and patient was started on continuous bladder irrigation. Patient was also administered 1 L IV fluid bolus with normal saline. Laboratory results obtained revealing no acute process. Differential diagnosis considerations include bladder obstruction, cystitis, urinary tract infection. Comorbidities impacting this visit include recent BCG procedure. At this time, case was discussed with the on-call urologist Dr. Rivas for admission for continue CBI and he accepted consultation. Patient will be admitted to our medical team with Urology consultation. Recommended obtaining a bladder ultrasound either tonight of possible or tomorrow. I have evaluated and discussed social determinants of health with the patient that could potentially impact subsequent diagnosis and treatment plans. On repeat assessment of the patient, reevaluation revealed that the patient is doing well and is in no acute distress. Patient symptoms have improved since he arrived to our emergency department. Repeat vital signs were all reviewed and noted to be stable. Differential diagnosis and treatment plan were discussed with the patient at bedside. Patient agrees with discussion and after shared medical decision making agrees with admission. All questions were answered to the patient's satisfaction. Case was discussed with the on-call CROP QUANTITATIVE GENETICIST Nikki who accepted admission. Vital Signs Vital Signs: Vital Signs Temperature 97.6 F 09/01/24 18:48 Pulse Rate 93 09/01/24 18:48 Respiratory Rate 18 09/01/24 18:48 Blood Pressure 142/82 H 09/01/24 18:48 Pulse Oximetry 96 09/01/24 18:48 Temperature 97.6 F 09/01/24 18:48 Pulse Rate 98 09/01/24 20:31 Respiratory Rate 24 H 09/01/24 20:31 Blood Pressure 165/89 H 09/01/24 20:31 Pulse Oximetry 99 09/01/24 20:31 Oxygen Delivery Room Air 09/01/24 20:31 Lab Data 09/01/24 20:19 09/01/24 20:19 Labs: Lab Results 09/01/24 09/01/24 Range/Units 20:19 21:14 WBC 8.2 (4.5-10.0) K/mm3 RBC 4.94 (4.6-6.20) M/mm3 Hgb 14.1 D (14.0-18.0) g/dL Hct 43.9 (42.0-52.0) % MCV 88.9 (80-100) fl MCH 28.5 (26-34) pg MCHC 32.1 (32-36) g/dl RDW 13.9 (11.5-14.5) % Plt Count 274 (150-375) k/mm3 MPV 8.2 (7.4-10.4) fl Immature Gran % (Auto) 0.6 H (0-0.5) % Neut % (Auto) 74.2 H (45.5-73.1) % Lymph % (Auto) 12.5 L (18.3-44.2) % [place] % (Auto) 8.5 (2.6-8.5) % Eos % (Auto) 3.2 (0-4.4) % Baso % (Auto) 1.0 (0.2-1.2) % Lymph # (Auto) 1.03 (0.9-3.2) K/mm3 [place] # (Auto) 0.7 H (0.1-0.6) K/mm3 Eos # (Auto) 0.3 (0-0.3) K/mm3 Baso # (Auto) 0.1 (0.0-0.1) K/mm3 Abs Immat Gran (auto) 0.05 H (0.00-0.031) K/mm3 Absolute Neuts (auto) 6.1 (1.3-6.7) K/mm3 Absolute Nucleated RBC 0.000 (0.0-0.012) K/mm3 Nucleated RBC % 0.0 (0.0-0.2) % Sodium 139 (137-145) mmol/L Potassium 4.5 (3.4-5.0) mmol/L Chloride 104 (98-107) mmol/L Carbon Dioxide 25 (22-30) mmol/L Anion Gap 10 (4-12) mmol/L BUN 19 (9-20) mg/dL Creatinine 1.35 H (0.7-1.3) mg/dL Estim Creat Clear Calc 40 ml/min Estimated GFR 51 L (59 - ) Glucose 125 H (65-110) mg/dL Calcium 9.5 (8.4-10.2) mg/dL Magnesium 2.3 (1.6-2.3) mg/dL Total Bilirubin 0.5 (0.2-1.3) mg/dL AST 55 (17-59) U/L ALT 37 (6-50) U/L Alkaline Phosphatase 93 (38-126) U/L Total Protein 8.7 H (6.3-8.2) g/dL Albumin 4.5 (3.5-5.1) g/dL Lipase 198 (23-300) U/L Urine Color [place] H (Yellow) Urine Appearance Cloudy H (Clear) Urine pH 7.0 (5.0-9.0) Ur Specific [place] 1.010 (1.001-1.035) Urine Protein 2+ H (Negative) mg/dL Urine Glucose (UA) Negative (Negative) mg/dL Urine Ketones Negative (Negative) mg/dL Ur Blood (Man) 3+ H (Negative) Urine Nitrate Negative (Negative) Urine Bilirubin Negative (Negative) Urine Urobilinogen 0.2 (<2.0) mg/dL Add Ur Microanalysis Reviewed Leukocyte Esterase Rfl 1+ H (Negative) OLMAN/UL Urine RBC >100 H (0-2) /hpf Urine WBC 6-10 H (0-3) /hpf Ur Squamous Epith Cells None seen (Few) /hpf Urine Bacteria None seen /hpf Urine Casts 0-2 Discharge Plan Discharge Clinical Impression: Acute urinary obstruction, Hematuria Patient Disposition: Still a Patient Condition: Improved Patient Language: Russian Prescriptions: No Action Xarelto 20 mg tablet 20 mg PO DAILY Aimovig Autoinjector 140 mg/mL auto-injector 140 mg subcut MONTHLY Rx Instructions: TAKES AROUND THE 1ST PART OF THE MONTH metoprolol succinate 50 mg tablet extended release 24 hr 50 mg PO HS magnesium oxide 500 mg Capsule 500 mg PO DAILY rosuvastatin 40 mg tablet 40 mg PO DAILY 90 Days Qty: 90 3RF Follow-up/Referrals: Osmani Zamorano MD [Primary Care Provider] - Time of Disposition: 22:39
[2024-09-01 21:28] LABS: Add Urine Microscopic? YES; Appearance Urine Cloudy (Clear); Glucose Urine UA Negative (Negative); Leukocyte Esterase Ur 1+ LEU/UL (Negative); Need Manual Microscopic Reviewed; Nitrate Urine Negative (Negative); Non Pathogenic Casts 0-2; Specific Grav Ur 1.010 (1.001-1.035)
[2024-09-02] VITALS (12 sets, daily range): BP systolic 123–155; BP diastolic 62–77; PULSE 74–96; RESP 16–20; TEMP 35.8–36.5; O2SAT 94–97; BMI 31.4
--- NOTE | 2024-09-02 00:51 | ADMGEN ---
This patient, Norman Yin, was admitted to Medical Room 248-. Patient/family oriented to hospital policies and general routines including ID bracelet, bed and alarms, visiting hours, pain management, procedures, bathroom and other care routines, personal items, smoking policy, room service/diet, and visiting hours. Information on how to activate the Rapid Response Team has been discussed. Patient/Family are encouraged to report perceived risks to care and to ask questions if they do not understand what they are told or what they should do.
--- NOTE | 2024-09-02 01:10 | PM.IMHP ---
H&P: HPI History of Present Illness Date/Time: 09/02/24 01:30 Chief Complaint: Blood in urine. Narrative: This is an 84-year-old male with history of bladder cancer status post transurethral section of bladder tumor and BCG treatment, urethral strictures, prostate cancer diagnosed in June 2021 status post radiation, chronic kidney disease stage IIIA, atrial fibrillation on chronic anticoagulation, hypertension, hyperlipidemia, permanent place maker implantation, obstructive sleep apnea on CPAP, and hyperlipidemia presented to the emergency department via private vehicle with complaints of blood in urine. He had a BCG treatment on Thursday per Dr. Herbert and he has had some blood in his urine since that time. He is now passing clots and has pretty significant bladder spasms with difficulties voiding for about 3 hours prior to arrival. Morphine given in the ED did not really help with his pain. Oxybutynin unfortunately causes him to hallucinate and have vivid dreams. He denies fever, vomiting, chest pain, shortness a breath. In the ED: He was afebrile on arrival with stable vital signs. Labs were significant for WBC count of 18.2, hemoglobin 14.1, creatinine 1.35. Urine was positive for 3+ blood, 1+ leukocyte esterase, greater than 100 RBC, and 6 to 10 WBC. Ultrasound of the pelvis showed echogenic debris in the urinary bladder. He was started on CBI and is being admitted in this setting for further treatment. Review of Systems Review of Systems: 12 systems were reviewed and are negative except for as per HPI. [facility], [facility] Past Medical History Medical History (Updated 09/02/24 @ 06:20 by Nikki Lambert PA-C) Obstructive sleep apnea on CPAP Paroxysmal atrial fibrillation Chronic anticoagulation Essential (primary) hypertension Anemia of chronic disease Bladder cancer high grade papillary urothelial carcinoma, noninvasive Vertigo migraine associated Personal history of malignant neoplasm of prostate Prediabetes Mixed hyperlipidemia Chronic kidney disease, stage 3a Surgical History Surgical History (Updated 09/02/24 @ 06:20 by Nikki Lambert PA-C) History of meniscectomy of right knee History of arthroscopy of right knee History of transurethral resection of bladder tumor (TURBT) History of cystoscopy History of cardiac pacemaker (2020) Family History Family History Mother Cerebrovascular accident Chronic obstructive pulmonary disease Grandparent Congestive heart failure Sibling Diabetes mellitus Hypertension Social History Social History (Updated 09/02/24 @ 06:34 by Nikki Lambert PA-C) Social History: Surrogate medical decision maker: Emilie Yin, spouse. Code status: Full code. Smoking packs per day: 1 Smoking cigarettes per day: 20.0 Years smoked: 30 Smoking pack-years: 30.00 Smoking status: Former smoker Tobacco type: cigarettes Second hand tobacco smoke exposure: No Smoking end date: 08/23/92 Alcohol intake: current Drinks per week: 7 Alcohol use details: 1 WINE/DAY Substance use: never Substance use type: does not use Do You Feel Safe in your Home?: Yes Lack of Transportation: No Lack of Food: Never True Current Housing: I Have Housing Concerned About Future Housing: No Difficulty Paying Gas/Electric Bills: No Difficulty Paying for Meds: No Currently Unemployed: No Education: Master's Degree or Higher Difficulty w/ Childcare or Family Care: No Additional living arrangements comments: Lives with spouse in [place]. 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 Spiritual care concerns: No Meds Home Medications and Allergies Home Medications ?Medication ?Instructions ?Recorded ?Confirmed ?Type erenumab-aooe 140 mg/mL 140 mg subcut MONTHLY MIGRAINS 08/28/22 09/02/24 History subcutaneous auto-injector (Aimovig Autoinjector) rivaroxaban 20 mg tablet (Xarelto) 20 mg PO QPM 08/28/22 09/02/24 History metoprolol succinate 50 mg 25 mg PO HS 11/09/23 09/02/24 History tablet,extended release 24 hr magnesium oxide 500 mg capsule 500 mg PO DAILY 12/07/23 09/02/24 History rosuvastatin 40 mg tablet 40 mg PO DAILY 90 days #90 tabs 12/21/23 09/02/24 Rx nortriptyline 25 mg capsule 50 mg PO Q12H 09/02/24 09/02/24 History Allergies Allergy/AdvReac Type Severity Reaction Status Date / Time oxybutynin (From Ditropan) AdvReac Hallucinating, Verified 09/01/24 18:49 VIVID DREAMING propanolol AdvReac Severe Chills, Uncoded 09/01/24 18:49 TREMORS Vital Signs Vital Signs - 24 hr 09/01/24 18:48 09/01/24 20:31 09/01/24 21:46 Temperature 97.6 F Pulse Rate 93 98 85 Respiratory Rate 18 24 H 19 Blood Pressure 142/82 H 165/89 H 131/86 Pulse Oximetry 96 99 93 Oxygen Delivery Room Air 09/01/24 22:00 09/01/24 22:31 09/01/24 23:01 Temperature Pulse Rate 89 85 91 Respiratory Rate 14 21 H 21 H Blood Pressure 144/70 H 144/74 H Pulse Oximetry 91 94 95 Oxygen Delivery 09/01/24 23:16 09/01/24 23:31 09/01/24 23:46 Temperature Pulse Rate 87 86 85 Respiratory Rate 19 18 18 Blood Pressure 137/62 148/76 H 136/65 Pulse Oximetry 92 92 94 Oxygen Delivery 09/02/24 00:01 09/02/24 00:22 09/02/24 01:00 Temperature 97.7 F Pulse Rate 83 87 83 Respiratory Rate 17 20 18 Blood Pressure 138/72 143/72 H 148/64 H Pulse Oximetry 94 95 97 Oxygen Delivery 09/02/24 01:05 Temperature Pulse Rate 83 Respiratory Rate 18 Blood Pressure Pulse Oximetry 97 Oxygen Delivery Room Air Exam Narrative: General: Nontoxic-appearing male sitting up in bed in moderate distress related to pain from bladder spasms. Weight: 94.5 kg. BMI: 32.6. HEENT: PERRL, EOMI. Sclera anicteric. Oral mucosa moist. Neck: Supple. Respiratory: Lungs are clear to auscultation bilaterally. Cardiovascular: Regular rate and rhythm with S1-S2. Pacemaker noted in the anterior chest. Gastrointestinal: Abdomen is soft with positive bowel sounds. He is tender to palpation over the suprapubic region and complains of spasms. Skin: Warm and dry. No rash or lesions on limited exam. Extremities: No cyanosis, clubbing, or significant edema. Radial and pedal pulses intact. Neurological: Alert. Cranial nerves grossly intact. No gross focal deficits to casual conversation. Psychiatric: Pleasant and cooperative with normal mood and affect. Judgment and insight intact. H&P: Results Labs Labs: Short CBC 09/01/24 Range/Units 20:19 WBC 8.2 (4.5-10.0) K/mm3 Hgb 14.1 D (14.0-18.0) g/dL Hct 43.9 (42.0-52.0) % Plt Count 274 (150-375) k/mm3 BMP 09/01/24 20:19 Sodium 139 Potassium 4.5 Chloride 104 Carbon Dioxide 25 BUN 19 Creatinine 1.35 H Glucose 125 H Calcium 9.5 Liver Function 09/01/24 Range/Units 20:19 Total Bilirubin 0.5 (0.2-1.3) mg/dL AST 55 (17-59) U/L ALT 37 (6-50) U/L Alkaline Phosphatase 93 (38-126) U/L Albumin 4.5 (3.5-5.1) g/dL Urine 09/01/24 Range/Units 21:14 Urine Color [place] H (Yellow) Urine Appearance Cloudy H (Clear) Urine pH 7.0 (5.0-9.0) Ur Specific [place] 1.010 (1.001-1.035) Urine Protein 2+ H (Negative) mg/dL Urine Glucose (UA) Negative (Negative) mg/dL Assessment and Plan Assessment and plan (1) Gross hematuria: Code(s): R31.0 - Gross hematuria Status: Acute (2) Bladder cancer: Qualifiers: Bladder location: unspecified site Qualified Code(s): C67.9 - Malignant neoplasm of bladder, unspecified Code(s): C67.9 - Malignant neoplasm of bladder, unspecified Status: Acute (3) Chronic anticoagulation: Code(s): Z79.01 - 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 Labs, imaging, EKG, and all reports were personally reviewed. Hematuria is likely related to recent BCG treatment. He has been started on CBI. Hemoglobin will be monitored and rivaroxaban has been placed on hold for now. He currently sounds to be in a sinus rhythm at this time. CPAP will be provided for the patient to use while hospitalized. His home medications will be reviewed and resumed as appropriate. Findings and treatment plan were discussed with the patient. Questions were solicited and answered to satisfaction. The patient's medical management will be taken over by the hospitalist team in a.m. Quality VTE Prophylaxis VTE prophylaxis: mechanical ordered If No VTE Prophylaxis Answer both mechanical and pharmacologic: Reason no pharmacologic proph: medical contraindication (gross hematuria) The patient has been admitted under observation status. Hospitalist [facility] Advance Care Plan I have confirmed that the patient's Advanced Care Plan is present, code status is documented, or surrogate decision maker is listed in patient medical record.: Yes Medication Reconciliation I have utilized all available resources to obtain, update and review the patients current medications (includes all prescriptions, OTC, herbals, cannabis, and nutritional supplements).: Yes
[2024-09-02 05:00] LABS: Hematocrit 35.0 % (42.0-52.0); Hemoglobin 11.4 g/dL (14.0-18.0); Immature Granulocyte Percent A 0.4 % (0-0.5); Lymphocytes Absolute Auto 1.06 K/mm3 (0.9-3.2); Mean Corpuscular HGB Conc 32.6 g/dl (32-36); Mean Corpuscular Hemoglobin 29.4 pg (26-34); Mean Corpuscular Volume 90.2 fl (80-100); Nucleated Red Blood Cells Absolute Auto 0.000 K/mm3 (0.0-0.012); Nucleated Red Blood Cells Perc 0.0 % (0.0-0.2); Platelet Count Result 213 k/mm3 (150-375); Red Blood Count 3.88 M/mm3 (4.6-6.20); White Blood Count 7.5 K/mm3 (4.5-10.0)
[2024-09-02 05:18] LABS: Anion Gap 6 mmol/L (4-12); Blood Urea Nitrogen 20 mg/dL (9-20); Calcium 8.7 mg/dL (8.4-10.2); Carbon Dioxide 23 mmol/L (22-30); Chloride 109 mmol/L (98-107); Estimated CRCL calculation 54 ml/min; Estimated Glomerular Filt Rate > 60; Glucose 111 mg/dL (65-110); Magnesium 2.2 mg/dL (1.6-2.3); Potassium 4.4 mmol/L (3.4-5.0); Sodium 138 mmol/L (137-145)
--- NOTE | 2024-09-02 06:15 | P.PNIM_ITS ---
Progress Note: A&P Assessment and Plan (1) Gross hematuria: Code(s): R31.0 - Gross hematuria Status: Acute (2) Bladder cancer: Qualifiers: Bladder location: unspecified site Qualified Code(s): C67.9 - Malignant neoplasm of bladder, unspecified Code(s): C67.9 - Malignant neoplasm of bladder, unspecified Status: Acute (3) Chronic anticoagulation: Code(s): Z79.01 - correction (current) use of anticoagulants Status: Acute (4) Paroxysmal atrial fibrillation: Code(s): I48.0 - Paroxysmal atrial fibrillation Status: Acute (5) Obstructive sleep apnea on CPAP: Code(s): G47.33 - Obstructive sleep apnea (adult) (pediatric) Status: Acute Plan Hematuria Bladder spasms Patient presented to the emergency department for evaluation of hematuria with blood clots following BCG treatment on Thursday and difficulties urinating for a few hours as detailed in HPI. --holding rivaroxaban --Urology consulted, appreciate recommendations --Oxybutynin not prescribed due to hx hallucinations. Spasms have resolved with bladder irrigation Acute Pain --Acetaminophen, Oxycodone, morphine prn ALLYSON --CPAP hs Afib --Continue metoprolol Time Spent With Patient Time: 57 minutes Subjective Date/time seen: 09/02/24 06:15 Interval history: Gross hematuria resolved today. Urine has been yellow from [facility] following. Had a bladder spasm and nurse was able to irrigate a blood clot. Said he had bladder spasms several times this admission related to clots Has had oxybutynin previously but caused hallucinations.X Holding Xarelto. hx afib with pacemaker. Has ALLYSON Exam Narrative: General: Nontoxic-appearing male sitting up in bed in no acute distress HEENT: PERRL, EOMI. Sclera anicteric. Oral mucosa moist. Neck: Supple. Respiratory: Lungs are clear to auscultation bilaterally. Cardiovascular: Regular rate and rhythm with S1-S2. Pacemaker noted in the anterior chest. Gastrointestinal: Abdomen is soft with positive bowel sounds. He is only minimally tender. Skin: Warm and dry. No rash or lesions on limited exam. Extremities: No cyanosis, clubbing, or significant edema. Radial and pedal pulses intact. Neurological: Alert. Cranial nerves grossly intact. No gross focal deficits to casual conversation. Psychiatric: Pleasant and cooperative with normal mood and affect. Judgment and insight intact. Objective Data Vital Signs Vital Signs: Vital Signs - 24 hr 09/01/24 18:48 09/01/24 20:31 09/01/24 21:46 Temperature 97.6 F Pulse Rate 93 98 85 Respiratory Rate 18 24 H 19 Blood Pressure 142/82 H 165/89 H 131/86 Pulse Oximetry 96 99 93 Oxygen Delivery Room Air 09/01/24 22:00 09/01/24 22:31 09/01/24 23:01 Temperature Pulse Rate 89 85 91 Respiratory Rate 14 21 H 21 H Blood Pressure 144/70 H 144/74 H Pulse Oximetry 91 94 95 Oxygen Delivery 09/01/24 23:16 09/01/24 23:31 09/01/24 23:46 Temperature Pulse Rate 87 86 85 Respiratory Rate 19 18 18 Blood Pressure 137/62 148/76 H 136/65 Pulse Oximetry 92 92 94 Oxygen Delivery 09/02/24 00:01 09/02/24 00:22 09/02/24 01:00 Temperature 97.7 F Pulse Rate 83 87 83 Respiratory Rate 17 20 18 Blood Pressure 138/72 143/72 H 148/64 H Pulse Oximetry 94 95 97 Oxygen Delivery 09/02/24 01:05 09/02/24 01:30 09/02/24 01:30 Temperature Pulse Rate 83 89 Respiratory Rate 18 16 Blood Pressure Pulse Oximetry 97 95 95 Oxygen Delivery Room Air Autopap Room Air 09/02/24 05:11 Temperature 96.4 F L Pulse Rate 75 Respiratory Rate 18 Blood Pressure 123/77 Pulse Oximetry 94 Oxygen Delivery Intake/Output Intake/Output: Intake & Output 08/30/24 08/31/24 09/01/24 09/02/24 23:59 23:59 23:59 23:59 Intake Total 1000 100 Output Total 3000 3350 Balance -2000 -3250 Meds/Results Medications: Active Medications Generic Name Dose Route Start Last Admin Trade Name Freq PRN Reason Stop Dose Admin Acetaminophen 650 mg 09/01/24 23:21 Acetaminophen 325 Mg Tablet PO Q6H PRN Mild Pain (1-3) or Fever Labs Labs: Laboratory Results - last 24 hr 09/01/24 09/01/24 09/02/24 20:19 21:14 04:35 WBC 8.2 7.5 RBC 4.94 3.88 L Hgb 14.1 D 11.4 L Hct 43.9 35.0 L MCV 88.9 90.2 MCH 28.5 29.4 MCHC 32.1 32.6 RDW 13.9 14.1 Plt Count 274 213 MPV 8.2 8.4 Immature Gran % (Auto) 0.6 H 0.4 Neut % (Auto) 74.2 H 72.3 Lymph % (Auto) 12.5 L 14.2 L [place] % (Auto) 8.5 9.5 H Eos % (Auto) 3.2 2.8 Baso % (Auto) 1.0 0.8 Lymph # (Auto) 1.03 1.06 [place] # (Auto) 0.7 H 0.7 H Eos # (Auto) 0.3 0.2 Baso # (Auto) 0.1 0.1 Abs Immat Gran (auto) 0.05 H 0.03 Absolute Neuts (auto) 6.1 5.4 Absolute Nucleated RBC 0.000 0.000 Nucleated RBC % 0.0 0.0 Sodium 139 138 Potassium 4.5 4.4 Chloride 104 109 H Carbon Dioxide 25 23 Anion Gap 10 6 BUN 19 20 Creatinine 1.35 H 1.03 Estim Creat Clear Calc 40 54 Estimated GFR 51 L > 60 Glucose 125 H 111 H Calcium 9.5 8.7 Magnesium 2.3 2.2 Total Bilirubin 0.5 AST 55 ALT 37 Alkaline Phosphatase 93 Total Protein 8.7 H Albumin 4.5 Lipase 198 Urine Color [place] H Urine Appearance Cloudy H Urine pH 7.0 Ur Specific [place] 1.010 Urine Protein 2+ H Urine Glucose (UA) Negative Urine Ketones Negative Ur Blood (Man) 3+ H Urine Nitrate Negative Urine Bilirubin Negative Urine Urobilinogen 0.2 Add Ur Microanalysis Reviewed Leukocyte Esterase Rfl 1+ H Urine RBC >100 H Urine WBC 6-10 H Ur Squamous Epith Cells None seen Urine Bacteria None seen Urine Casts 0-2 Quality VTE Prophylaxis VTE prophylaxis: mechanical ordered Hospitalist MIPS Advance Care Plan I have confirmed that the patient's Advanced Care Plan is present, code status is documented, or surrogate decision maker is listed in patient medical record.: Yes Medication Reconciliation I have utilized all available resources to obtain, update and review the patients current medications (includes all prescriptions, OTC, herbals, mariaelena abis, and nutritional supplements).: Yes
[2024-09-02] MEDS: HYDROmorphone HCL INJ (*CRX) 2 MG/ML VIAL 0.5 MG IV PUSH (06:56)
--- NOTE | 2024-09-02 09:56 | P.CONUR_ITS ---
Assessment and Plan Assessment and plan (1) Gross hematuria: Code(s): R31.0 - Gross hematuria Status: Acute (2) Bladder cancer: Qualifiers: Bladder location: unspecified site Qualified Code(s): C67.9 - Malignant neoplasm of bladder, unspecified Code(s): C67.9 - Malignant neoplasm of bladder, unspecified Status: Acute Plan 84y old male with gross hematuria with clots s/p bcg treatment in the setting of xarelto for afib. -hold xarelto -continue cbi. plan to titrate to slow rate based on urine -wbc is wnl. -cr has normalized today to 1.03 from 1.35 yesterday. -urine culture pending. Culture driven antibiotics per primary team. Urology Consult Note HPI Date Seen: 09/02/24 Requesting Physician: Italia Prieto MD Primary Care Provider: Osmani Zamorano MD Consult Narrative Narrative: Norman Yin is a 84 year old male with history of bladder cancer status post transurethral section of bladder tumor and BCG treatment, urethral strictures, prostate cancer diagnosed in June 2021 status post radiation, chronic kidney disease stage IIIA, atrial fibrillation on chronic anticoagulation, hypertension, hyperlipidemia, permanent place maker implantation, obstructive sleep apnea on CPAP, and hyperlipidemia presented to the emergency department via private vehicle with complaints of blood in urine. He had a BCG treatment on Thursday per Dr. Herbert and he has had some blood in his urine since that time. He is now passing clots and has pretty significant bladder spasms with difficulties voiding for about 3 hours prior to arrival. Morphine given in the ED did not really help with his pain. Oxybutynin unfortunately causes him to hallucinate and have vivid dreams. He denies fever, vomiting, chest pain, shortness a breath. In the ED: He was afebrile on arrival with stable vital signs. Labs were significant for WBC count of 18.2, hemoglobin 14.1, creatinine 1.35. Urine was positive for 3+ blood, 1+ leukocyte esterase, greater than 100 RBC, and 6 to 10 WBC. Ultrasound of the pelvis showed echogenic debris in the urinary bladder. He was started on CBI and is being admitted in this setting for further treatment. Review of Systems 2 Review of Systems: All systems reviewed & are unremarkable except as noted in HPI and below PMFSH Past Medical History Medical History (Updated 09/02/24 @ 06:20 by Nikki Lambert PA-C) Obstructive sleep apnea on CPAP Paroxysmal atrial fibrillation Chronic anticoagulation Essential (primary) hypertension Anemia of chronic disease Bladder cancer high grade papillary urothelial carcinoma, noninvasive Vertigo migraine associated Personal history of malignant neoplasm of prostate Prediabetes Mixed hyperlipidemia Chronic kidney disease, stage 3a Surgical History Surgical History (Updated 09/02/24 @ 06:20 by Nikki Lambert PA-C) History of meniscectomy of right knee History of arthroscopy of right knee History of transurethral resection of bladder tumor (TURBT) History of cystoscopy History of cardiac pacemaker (2020) Family History Family History Mother Cerebrovascular accident Chronic obstructive pulmonary disease Grandparent Congestive heart failure Sibling Diabetes mellitus Hypertension Social History Social History (Updated 09/02/24 @ 06:34 by Nikki Lambert PA-C) Social History: Surrogate medical decision maker: Emilie Humphrey, spouse. Code status: Full code. Smoking packs per day: 1 Smoking cigarettes per day: 20.0 Years smoked: 30 Smoking pack-years: 30.00 Smoking status: Former smoker Tobacco type: cigarettes Second hand tobacco smoke exposure: No Smoking end date: 08/23/92 Alcohol intake: current Drinks per week: 7 Alcohol use details: 1 WINE/DAY Substance use: never Substance use type: does not use Do You Feel Safe in your Home?: Yes Lack of Transportation: No Lack of Food: Never True Current Housing: I Have Housing Concerned About Future Housing: No Difficulty Paying Gas/Electric Bills: No Difficulty Paying for Meds: No Currently Unemployed: No Education: Master's Degree or Higher Difficulty w/ Childcare or Family Care: No Additional living arrangements comments: Lives with spouse in [place]. 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 Spiritual care concerns: No Meds Home Medications and Allergies Home Medications ?Medication ?Instructions ?Recorded ?Confirmed ?Type erenumab-aooe 140 mg/mL 140 mg subcut MONTHLY MIGRAINS 08/28/22 09/02/24 History subcutaneous auto-injector (Aimovig Autoinjector) rivaroxaban 20 mg tablet (Xarelto) 20 mg PO QPM 08/28/22 09/02/24 History metoprolol succinate 50 mg 25 mg PO HS 11/09/23 09/02/24 History tablet,extended release 24 hr magnesium oxide 500 mg capsule 500 mg PO DAILY 12/07/23 09/02/24 History rosuvastatin 40 mg tablet 40 mg PO DAILY 90 days #90 tabs 12/21/23 09/02/24 Rx nortriptyline 25 mg capsule 50 mg PO Q12H 09/02/24 09/02/24 History Allergies Allergy/AdvReac Type Severity Reaction Status Date / Time oxybutynin (From Ditropan) AdvReac Hallucinating, Verified 09/01/24 18:49 VIVID DREAMING propanolol AdvReac Severe Chills, Uncoded 09/01/24 18:49 TREMORS Vital Signs Vital Signs - 24 hr 09/01/24 18:48 09/01/24 20:31 09/01/24 21:46 Temperature 97.6 F Pulse Rate 93 98 85 Respiratory Rate 18 24 H 19 Blood Pressure 142/82 H 165/89 H 131/86 Pulse Oximetry 96 99 93 Oxygen Delivery Room Air 09/01/24 22:00 09/01/24 22:31 09/01/24 23:01 Temperature Pulse Rate 89 85 91 Respiratory Rate 14 21 H 21 H Blood Pressure 144/70 H 144/74 H Pulse Oximetry 91 94 95 Oxygen Delivery 09/01/24 23:16 09/01/24 23:31 09/01/24 23:46 Temperature Pulse Rate 87 86 85 Respiratory Rate 19 18 18 Blood Pressure 137/62 148/76 H 136/65 Pulse Oximetry 92 92 94 Oxygen Delivery 09/02/24 00:01 09/02/24 00:22 09/02/24 01:00 Temperature 97.7 F Pulse Rate 83 87 83 Respiratory Rate 17 20 18 Blood Pressure 138/72 143/72 H 148/64 H Pulse Oximetry 94 95 97 Oxygen Delivery 09/02/24 01:05 09/02/24 01:30 09/02/24 01:30 Temperature Pulse Rate 83 89 Respiratory Rate 18 16 Blood Pressure Pulse Oximetry 97 95 95 Oxygen Delivery Room Air Autopap Room Air 09/02/24 05:11 Temperature 96.4 F L Pulse Rate 75 Respiratory Rate 18 Blood Pressure 123/77 Pulse Oximetry 94 Oxygen Delivery Exam 2 Const: General: comfortable and no acute distress HENMT: Mouth: Yes moist mucous membranes abnormal Eyes: General: appearance normal, both eyes and all related structures Resp: Effort & Inspection: normal respiratory effort Urinary Catheter: Urinary Catheter: patent and draining and urine clear (with cbi running moderate rate. ) Skin: General skin exam: normal color Neuro: Speech: normal speech Psych: Speech and movement: Normal speech and movement present Results Labs 09/02/24 04:35 09/02/24 04:35 Labs: Short CBC 09/01/24 09/02/24 Range/Units 20:19 04:35 WBC 8.2 7.5 (4.5-10.0) K/mm3 Hgb 14.1 D 11.4 L (14.0-18.0) g/dL Hct 43.9 35.0 L (42.0-52.0) % Plt Count 274 213 (150-375) k/mm3 BMP 09/01/24 09/02/24 20:19 04:35 Sodium 139 138 Potassium 4.5 4.4 Chloride 104 109 H Carbon Dioxide 25 23 BUN 19 20 Creatinine 1.35 H 1.03 Glucose 125 H 111 H Calcium 9.5 8.7 Liver Function 09/01/24 Range/Units 20:19 Total Bilirubin 0.5 (0.2-1.3) mg/dL AST 55 (17-59) U/L ALT 37 (6-50) U/L Alkaline Phosphatase 93 (38-126) U/L Albumin 4.5 (3.5-5.1) g/dL Urine 09/01/24 Range/Units 21:14 Urine Color [place] H (Yellow) Urine Appearance Cloudy H (Clear) Urine pH 7.0 (5.0-9.0) Ur Specific [place] 1.010 (1.001-1.035) Urine Protein 2+ H (Negative) mg/dL Urine Glucose (UA) Negative (Negative) mg/dL
[2024-09-02] MEDS: METOPROLOL TARTRATE 12.5 MG TABLET PO ×2 (12:09→20:20)
[2024-09-02] MEDS: ROSUVASTATIN 20 MG TABLET 40 MG PO (12:10)
[2024-09-02] MEDS: ACETAMINOPHEN 325 MG TABLET 650 MG PO (12:12)
[2024-09-02] MEDS: NORTRIPTYLINE HCL 25 MG CAPSULE 50 MG PO (20:20)
[2024-09-02] MEDS: oxyCODONE HCL (*CRX) 5 MG TAB IR PO (20:21)
[2024-09-02] MEDS: WATER FOR IRRIGATION, STERILE 1,000 ML BOTTLE 1000 ML (21:05)
[2024-09-03] VITALS (9 sets, daily range): BP systolic 137–150; BP diastolic 66–73; PULSE 75–103; RESP 18–20; TEMP 36.1–36.8; O2SAT 93–96
[2024-09-03 05:15] LABS: Hematocrit 38.5 % (42.0-52.0); Hemoglobin 12.2 g/dL (14.0-18.0); Immature Granulocyte Percent A 0.5 % (0-0.5); Lymphocytes Absolute Auto 0.89 K/mm3 (0.9-3.2); Mean Corpuscular HGB Conc 31.7 g/dl (32-36); Mean Corpuscular Hemoglobin 29.0 pg (26-34); Mean Corpuscular Volume 91.4 fl (80-100); Nucleated Red Blood Cells Absolute Auto 0.000 K/mm3 (0.0-0.012); Nucleated Red Blood Cells Perc 0.0 % (0.0-0.2); Platelet Count Result 227 k/mm3 (150-375); Red Blood Count 4.21 M/mm3 (4.6-6.20); White Blood Count 9.3 K/mm3 (4.5-10.0)
[2024-09-03 05:39] LABS: Anion Gap 6 mmol/L (4-12); Blood Urea Nitrogen 15 mg/dL (9-20); Calcium 9.2 mg/dL (8.4-10.2); Carbon Dioxide 30 mmol/L (22-30); Chloride 103 mmol/L (98-107); Estimated CRCL calculation 50 ml/min; Estimated Glomerular Filt Rate > 60; Glucose 113 mg/dL (65-110); Potassium 4.7 mmol/L (3.4-5.0); Sodium 139 mmol/L (137-145)
--- NOTE | 2024-09-03 07:18 | P.PNIM_ITS ---
Progress Note: A&P Assessment and Plan (1) Gross hematuria: Code(s): R31.0 - Gross hematuria Status: Acute (2) Bladder cancer: Qualifiers: Bladder location: unspecified site Qualified Code(s): C67.9 - Malignant neoplasm of bladder, unspecified Code(s): C67.9 - Malignant neoplasm of bladder, unspecified Status: Acute (3) Chronic anticoagulation: Code(s): Z79.01 - [facility] (current) use of anticoagulants Status: Acute (4) Paroxysmal atrial fibrillation: Code(s): I48.0 - Paroxysmal atrial fibrillation Status: Acute (5) Obstructive sleep apnea on CPAP: Code(s): G47.33 - Obstructive sleep apnea (adult) (pediatric) Status: Acute Plan Hematuria Bladder spasms Patient presented to the emergency department for evaluation of hematuria with blood clots following BCG treatment on Thursday and difficulties urinating for a few hours as detailed in HPI. --holding rivaroxaban --Urology consulted, appreciate recommendations --Oxybutynin not prescribed due to hx hallucinations. Spasms have resolved with bladder irrigation --Void trial per urology, [facility] new this admission --Urine culture pending. Holding antibiotics pending cultures since otherwise asymptomatic Acute Pain --Acetaminophen, Oxycodone, morphine prn ALLYSON --CPAP hs Afib --Continue metoprolol Subjective Date/time seen: 09/03/24 07:18 Interval history: Gross hematuria resolved today. Urine has been yellow from [facility] following. Had a few bladder spasms H&H stabilized, 14.1 on admission, overnight 11.4<12.2 Holding Xarelto. hx afib with pacemaker. Has ALLYSON Review of Systems Review of Systems: 12 systems were reviewed and are negativ e except for as per HPI. Exam Narrative: General: Nontoxic-appearing male sitting up in bed in no acute distress HEENT: PERRL, EOMI. Sclera anicteric. Oral mucosa moist. Neck: Supple. Respiratory: Lungs are clear to auscultation bilaterally. Cardiovascular: Regular rate and rhythm with S1-S2. Pacemaker noted in the anterior chest. Gastrointestinal: Abdomen is soft with positive bowel sounds. He is only m inimally tender. Skin: Warm and dry. No rash or lesions on limited exam. Extremities: No cyanosis, clubbing, or significant edema. Radial and pedal pulses intact. Neurological: Alert. Cranial nerves grossly intact. No gross focal deficits to casual conversation. Psychiatric: Pleasant and cooperative with normal mood and affect. Judgment and insight intact. Objective Data Vital Signs Vital Signs: Vital Signs - 24 hr 09/02/24 08:00 09/02/24 12:09 09/02/24 14:00 Temperature 97.0 F L Pulse Rate 96 83 Respiratory Rate 18 Blood Pressure 136/62 Pulse Oximetry 96 Oxygen Delivery Room Air 09/02/24 20:20 09/02/24 20:20 09/02/24 21:39 Temperature 97.6 F Pulse Rate 74 74 83 Respiratory Rate 18 16 Blood Pressure 155/63 H Pulse Oximetry 96 96 Oxygen Delivery Room Air 09/02/24 21:40 09/02/24 23:00 09/03/24 03:00 Temperature Pulse Rate 74 77 Respiratory Rate Blood Pressure Pulse Oximetry 96 95 95 Oxygen Delivery Room Air 09/03/24 06:00 Temperature 97 F L Pulse Rate 95 Respiratory Rate 20 Blood Pressure 137/73 Pulse Oximetry 95 Oxygen Delivery Intake/Output Intake/Output: Intake & Output 08/31/24 09/01/24 09/02/24 09/03/24 23:59 23:59 23:59 23:59 Intake Total 1000 1490 400 Output Total 3000 5350 1200 Balance -8594 -9100 -800 Meds/Results Medications: Active Medications Generic Name Dose Route Start Last Admin Trade Name Freq PRN Reason Stop Dose Admin Acetaminophen 650 mg 09/01/24 23:21 09/02/24 12:12 Acetaminophen 325 Mg Tablet PO 650 mg Q6H PRN Administration Mild Pain (1-3) or Fever Magnesium Oxide 400 mg 09/03/24 09:00 Magnesium Oxide 400 Mg Tablet PO DAILY PRAVEENA Metoprolol Tartrate 12.5 mg 09/02/24 10:55 09/02/24 20:20 Metoprolol Tartrate 12.5 Mg Tablet PO 12.5 mg Q12HR PRAVEENA Administration Morphine Sulfate 2 mg 09/02/24 15:29 Morphine Sulfate (*Crx) 4 Mg/Ml Inj IV PUSH Q2H PRN Pain Rated 7-10 Nortriptyline HCl 50 mg 09/02/24 21:00 09/02/24 20:20 Nortriptyline Hcl 25 Mg Capsule PO 50 mg Q12HR PRAVEENA Administration Oxycodone HCl 5 mg 09/02/24 15:29 09/02/24 20:21 Oxycodone Hcl (*Crx) 5 Mg Tab Ir PO 5 mg Q4H PRN Administration Pain Rated 4-6 Rosuvastatin Calcium 40 mg 09/02/24 10:55 09/02/24 12:10 Rosuvastatin 20 Mg Tablet PO 40 mg DAILY PRAVEENA Administration Labs Labs: Laboratory Results - last 24 hr 09/03/24 04:55 WBC 9.3 RBC 4.21 L Hgb 12.2 L Hct 38.5 L MCV 91.4 MCH 29.0 MCHC 31.7 L RDW 14.1 Plt Count 227 MPV 8.3 Immature Gran % (Auto) 0.5 Neut % (Auto) 75.5 H Lymph % (Auto) 9.5 L [place] % (Auto) 10.4 H Eos % (Auto) 3.6 Baso % (Auto) 0.5 Lymph # (Auto) 0.89 L [place] # (Auto) 1.0 H Eos # (Auto) 0.3 Baso # (Auto) 0.1 Abs Immat Gran (auto) 0.05 H Absolute Neuts (auto) 7.0 H Absolute Nucleated RBC 0.000 Nucleated RBC % 0.0 Sodium 139 Potassium 4.7 Chloride 103 Carbon Dioxide 30 Anion Gap 6 BUN 15 D Creatinine 1.12 Estim Creat Clear Calc 50 Estimated GFR > 60 Glucose 113 H Calcium 9.2 Blood Type A Positive Antibody Screen Negative Quality VTE Prophylaxis VTE prophylaxis: mechanical ordered Hospitalist MIPS Advance Care Plan I have confirmed that the patient's Advanced Care Plan is present, code status is documented, or surrogate decision maker is listed in patient medical record.: Yes Medication Reconciliation I have utilized all available resources to obtain, update and review the patients current medications (includes all prescriptions, OTC, herbals, cannabis, and nutritional supplements).: Yes
[2024-09-03] MEDS: METOPROLOL TARTRATE 12.5 MG TABLET PO ×2 (09:20→20:20)
[2024-09-03] MEDS: NORTRIPTYLINE HCL 25 MG CAPSULE 50 MG PO ×2 (09:21→20:20)
[2024-09-03] MEDS: MAGNESIUM OXIDE 400 MG TABLET PO (09:21)
[2024-09-03] MEDS: ROSUVASTATIN 20 MG TABLET 40 MG PO (09:21)
[2024-09-03] MEDS: SENNOSIDES 8.6 MG TABLET PO (11:11)
[2024-09-03] MEDS: oxyCODONE HCL (*CRX) 5 MG TAB IR PO (19:50)
[2024-09-04] VITALS (8 sets, daily range): BP systolic 115–148; BP diastolic 57–83; PULSE 69–107; RESP 16–20; TEMP 36.5–36.8; O2SAT 95–97
[2024-09-04 05:29] LABS: Hematocrit 39.9 % (42.0-52.0); Hemoglobin 12.7 g/dL (14.0-18.0); Immature Granulocyte Percent A 0.8 % (0-0.5); Lymphocytes Absolute Auto 1.15 K/mm3 (0.9-3.2); Mean Corpuscular HGB Conc 31.8 g/dl (32-36); Mean Corpuscular Hemoglobin 29.3 pg (26-34); Mean Corpuscular Volume 91.9 fl (80-100); Nucleated Red Blood Cells Absolute Auto 0.000 K/mm3 (0.0-0.012); Nucleated Red Blood Cells Perc 0.0 % (0.0-0.2); Platelet Count Result 235 k/mm3 (150-375); Red Blood Count 4.34 M/mm3 (4.6-6.20); White Blood Count 10.7 K/mm3 (4.5-10.0)
[2024-09-04 05:53] LABS: Anion Gap 6 mmol/L (4-12); Blood Urea Nitrogen 14 mg/dL (9-20); Calcium 9.3 mg/dL (8.4-10.2); Carbon Dioxide 30 mmol/L (22-30); Chloride 101 mmol/L (98-107); Estimated CRCL calculation 45 ml/min; Estimated Glomerular Filt Rate 55; Glucose 112 mg/dL (65-110); Potassium 4.6 mmol/L (3.4-5.0); Sodium 137 mmol/L (137-145)
--- NOTE | 2024-09-04 07:37 | PM.IMPN ---
Progress Note: A&P Assessment and Plan (1) Gross hematuria: Code(s): R31.0 - Gross hematuria Status: Acute (2) Bladder cancer: Qualifiers: Bladder location: unspecified site Qualified Code(s): C67.9 - Malignant neoplasm of bladder, unspecified Code(s): C67.9 - Malignant neoplasm of bladder, unspecified Status: Acute (3) Chronic anticoagulation: Code(s): Z79.01 - skilled nursing (current) use of anticoagulants Status: Acute (4) Paroxysmal atrial fibrillation: Code(s): I48.0 - Paroxysmal atrial fibrillation Status: Acute (5) Obstructive sleep apnea on CPAP: Code(s): G47.33 - Obstructive sleep apnea (adult) (pediatric) Status: Acute Plan Hematuria Bladder spasms Patient presented to the emergency department for evaluation of hematuria with blood clots following BCG treatment on Thursday and difficulties urinating for a few hours as detailed in HPI. --holding rivaroxaban --Urology consulted, appreciate recommendations --Oxybutynin not prescribed due to hx hallucinations. Spasms have resolved with bladder irrigation --Void trial per urology, Jeffery new this admission --Urine culture pending. Holding antibiotics pending cultures since otherwise asymptomatic Acute Pain --Acetaminophen, Oxycodone, morphine prn ALLYSON --CPAP hs Afib --Continue metoprolol Time Spent With Patient Time: 35 minutes Subjective Date/time seen: 09/04/24 07:37 Interval history: Urine culture no growth Void trial today if ok with urology. Blood count stable, creatinine 1.25 schedule miralax Review of Systems Review of Systems: 12 systems were reviewed and are negative except for as per HPI. Exam Narrative: General: Nontoxic-appearing male sitting up in bed in no acute distress HEENT: PERRL, EOMI. Sclera anicteric. Oral mucosa moist. Neck: Supple. Respiratory: Lungs are clear to auscultation bilaterally. Cardiovascular: Regular rate and rhythm with S1-S2. Pacemaker noted in the anterior chest. Gastrointestinal: Abdomen is soft with positive bowel sounds. He is only minimally tender. Skin: Warm and dry. No rash or lesions on limited exam. Extremities: No cyanosis, clubbing, or significant edema. Radial and pedal pulses intact. Neurological: Alert. Cranial nerves grossly intact. No gross focal deficits to casual conversation. Psychiatric: Pleasant and cooperative with normal mood and affect. Judgment and insight intact. Objective Data Vital Signs Vital Signs: Vital Signs - 24 hr 09/03/24 08:00 09/03/24 09:20 09/03/24 14:00 Temperature 98.2 F Pulse Rate 103 H 92 Respiratory Rate 18 Blood Pressure 138/67 Pulse Oximetry 96 96 Oxygen Delivery Room Air Fraction of Inspired Oxygen 09/03/24 20:02 09/03/24 20:20 09/03/24 20:20 Temperature Pulse Rate 103 H 78 75 Respiratory Rate 20 20 Blood Pressure Pulse Oximetry 95 95 Oxygen Delivery Room Air Room Air Fraction of Inspired Oxygen 21 21 09/03/24 20:27 09/03/24 21:04 09/04/24 01:40 Temperature 97.7 F Pulse Rate 100 75 71 Respiratory Rate 20 Blood Pressure 150/66 H Pulse Oximetry 93 95 95 Oxygen Delivery Fraction of Inspired Oxygen 09/04/24 05:55 Temperature 98.2 F Pulse Rate 85 Respiratory Rate 20 Blood Pressure 115/57 L Pulse Oximetry 96 Oxygen Delivery Fraction of Inspired Oxygen Intake/Output Intake/Output: Intake & Output 09/01/24 09/02/24 09/03/24 09/04/24 23:59 23:59 23:59 23:59 Intake Total 1000 1490 1670 200 Output Total 3000 5350 1200 Balance -2000 -3860 470 200 Meds/Results Medications: Active Medications Generic Name Dose Route Start Last Admin Trade Name Freq PRN Reason Stop Dose Admin Acetaminophen 650 mg 09/01/24 23:21 09/02/24 12:12 Acetaminophen 325 Mg Tablet PO 650 mg Q6H PRN Administration Mild Pain (1-3) or Fever Magnesium Oxide 400 mg 09/03/24 09:00 09/03/24 09:21 Magnesium Oxide 400 Mg Tablet PO 400 mg DAILY PRAVEENA Administration Metoprolol Tartrate 12.5 mg 09/02/24 10:55 09/03/24 20:20 Metoprolol Tartrate 12.5 Mg Tablet PO 12.5 mg Q12HR PRAVEENA Administration Morphine Sulfate 2 mg 09/02/24 15:29 Morphine Sulfate (*Crx) 4 Mg/Ml Inj IV PUSH Q2H PRN Pain Rated 7-10 Nortriptyline HCl 50 mg 09/02/24 21:00 09/03/24 20:20 Nortriptyline Hcl 25 Mg Capsule PO 50 mg Q12HR PRAVEENA Administration Oxycodone HCl 5 mg 09/02/24 15:29 09/03/24 19:50 Oxycodone Hcl (*Crx) 5 Mg Tab Ir PO 5 mg Q4H PRN Administration Pain Rated 4-6 Polyethylene Glycol 17 gm 09/03/24 10:24 Polyethylene Glycol 3350 17 Gm Powd.Pack PO DAILY PRN Constipation Rosuvastatin Calcium 40 mg 09/02/24 10:55 09/03/24 09:21 Rosuvastatin 20 Mg Tablet PO 40 mg DAILY PRAVEENA Administration Senna 8.6 mg 09/03/24 11:00 09/03/24 11:11 Sennosides 8.6 Mg Tablet PO 8.6 mg BID PRAVEENA Administration Labs Labs: Laboratory Results - last 24 hr 09/04/24 05:06 WBC 10.7 H RBC 4.34 L Hgb 12.7 L Hct 39.9 L MCV 91.9 MCH 29.3 MCHC 31.8 L RDW 14.0 Plt Count 235 MPV 8.2 Immature Gran % (Auto) 0.8 H Neut % (Auto) 73.0 Lymph % (Auto) 10.8 L [place] % (Auto) 11.6 H Eos % (Auto) 3.2 Baso % (Auto) 0.6 Lymph # (Auto) 1.15 [place] # (Auto) 1.2 H Eos # (Auto) 0.3 Baso # (Auto) 0.1 Abs Immat Gran (auto) 0.09 H Absolute Neuts (auto) 7.8 H Absolute Nucleated RBC 0.000 Nucleated RBC % 0.0 Sodium 137 Potassium 4.6 Chloride 101 Carbon Dioxide 30 Anion Gap 6 BUN 14 Creatinine 1.25 Estim Creat Clear Calc 45 Estimated GFR 55 L Glucose 112 H Calcium 9.3 Quality VTE Prophylaxis VTE prophylaxis: mechanical ordered Hospitalist MIPS Advance Care Plan I have confirmed that the patient's Advanced Care Plan is present, code status is documented, or surrogate decision maker is listed in patient medical record.: Yes Medication Reconciliation I have utilized all available resources to obtain, update and review the patients current medications (includes all prescriptions, OTC, herbals, cannabis, and nutritional supplements).: Yes
[2024-09-04] MEDS: SENNOSIDES 8.6 MG TABLET PO ×2 (08:43→17:02)
[2024-09-04] MEDS: NORTRIPTYLINE HCL 25 MG CAPSULE 50 MG PO ×2 (08:44→20:10)
[2024-09-04] MEDS: ROSUVASTATIN 20 MG TABLET 40 MG PO (08:44)
[2024-09-04] MEDS: METOPROLOL TARTRATE 12.5 MG TABLET PO ×2 (08:44→20:10)
[2024-09-04] MEDS: MAGNESIUM OXIDE 400 MG TABLET PO (08:44)
[2024-09-05 04:57] VITALS: BP 140/69; PULSE 89; RESP 20; TEMP 36.6; O2SAT 96
[2024-09-05 06:38] LABS: Hematocrit 40.4 % (42.0-52.0); Hemoglobin 12.7 g/dL (14.0-18.0); Immature Granulocyte Percent A 0.7 % (0-0.5); Lymphocytes Absolute Auto 0.93 K/mm3 (0.9-3.2); Mean Corpuscular HGB Conc 31.4 g/dl (32-36); Mean Corpuscular Hemoglobin 28.7 pg (26-34); Mean Corpuscular Volume 91.4 fl (80-100); Nucleated Red Blood Cells Absolute Auto 0.000 K/mm3 (0.0-0.012); Nucleated Red Blood Cells Perc 0.0 % (0.0-0.2); Platelet Count Result 254 k/mm3 (150-375); Red Blood Count 4.42 M/mm3 (4.6-6.20); White Blood Count 10.7 K/mm3 (4.5-10.0)
[2024-09-05 06:56] LABS: Anion Gap 10 mmol/L (4-12); Blood Urea Nitrogen 14 mg/dL (9-20); Calcium 9.1 mg/dL (8.4-10.2); Carbon Dioxide 26 mmol/L (22-30); Chloride 101 mmol/L (98-107); Estimated CRCL calculation 49 ml/min; Estimated Glomerular Filt Rate 60; Glucose 113 mg/dL (65-110); Potassium 4.1 mmol/L (3.4-5.0); Sodium 137 mmol/L (137-145)
[2024-09-05 09:27] VITALS: BP 133/69; PULSE 76; RESP 16; TEMP 36.4; O2SAT 98
[2024-09-05 09:28] VITALS: PULSE 67
[2024-09-05] MEDS: METOPROLOL TARTRATE 12.5 MG TABLET PO (09:28)
[2024-09-05 09:29] VITALS: PULSE 67; RESP 16; O2SAT 98
[2024-09-05] MEDS: MAGNESIUM OXIDE 400 MG TABLET PO (09:29)
[2024-09-05] MEDS: SENNOSIDES 8.6 MG TABLET PO (09:29)
[2024-09-05] MEDS: ROSUVASTATIN 20 MG TABLET 40 MG PO (09:29)
--- NOTE | 2024-09-05 10:39 | WPDUROPN2 ---
Progress Note: A&P Assessment and Plan (1) Gross hematuria: Code(s): R31.0 - Gross hematuria Status: Acute Assessment and Plan: Following BCG treatment. Urine now clear Gil can be removed. He will be discharged home. He is set for another BCG tomorrow. I told him to hold off on that treatment. Will defer future BCG treatment to his primary urologist Subjective Subjective Date/Time Seen: 09/05/24 10:39 Interval history: Urine is now clear. CBI is off Exam Narrative: CBI off. Urine clear. He is comfortable Objective Data Vital Signs Vital Signs: Vital Signs - 24 hr 09/04/24 14:00 09/04/24 20:10 09/04/24 20:10 Temperature 97.7 F Pulse Rate 107 H 69 104 H Respiratory Rate 18 18 Blood Pressure 145/62 H Pulse Oximetry 97 96 Oxygen Delivery Room Air Fraction of Inspired Oxygen 21 09/04/24 21:41 09/04/24 23:47 09/05/24 04:57 Temperature 97.7 F 98 F Pulse Rate 104 H 103 H 89 Respiratory Rate 18 20 Blood Pressure 148/83 H 140/69 Pulse Oximetry 96 96 96 Oxygen Delivery Fraction of Inspired Oxygen 09/05/24 09:27 09/05/24 09:28 Temperature 97.6 F Pulse Rate 76 67 Respiratory Rate 16 Blood Pressure 133/69 Pulse Oximetry 98 Oxygen Delivery Fraction of Inspired Oxygen Intake/Output Intake/Output: Intake & Output 09/02/24 09/03/24 09/04/24 09/05/24 23:59 23:59 23:59 23:59 Intake Total 1490 1670 1710 420 Output Total 5350 1200 500 650 Balance -3860 470 1210 -230 Meds/Results Medications: Active Medications Generic Name Dose Route Start Last Admin Trade Name Freq PRN Reason Stop Dose Admin Acetaminophen 650 mg 09/01/24 23:21 09/02/24 12:12 Acetaminophen 325 Mg Tablet PO 650 mg Q6H PRN Administration Mild Pain (1-3) or Fever Magnesium Oxide 400 mg 09/03/24 09:00 09/05/24 09:29 Magnesium Oxide 400 Mg Tablet PO 400 mg DAILY PRAVEENA Administration Metoprolol Tartrate 12.5 mg 09/02/24 10:55 09/05/24 09:28 Metoprolol Tartrate 12.5 Mg Tablet PO 12.5 mg Q12HR PRAVEENA Administration Morphine Sulfate 2 mg 09/02/24 15:29 Morphine Sulfate (*Crx) 4 Mg/Ml Inj IV PUSH Q2H PRN Pain Rated 7-10 Nortriptyline HCl 50 mg 09/02/24 21:00 09/05/24 09:55 Nortriptyline Hcl 25 Mg Capsule PO Not Given Q12HR [facility] Oxycodone HCl 5 mg 09/02/24 15:29 09/03/24 19:50 Oxycodone Hcl (*Crx) 5 Mg Tab Ir PO 5 mg Q4H PRN Administration Pain Rated 4-6 Polyethylene Glycol 17 gm 09/03/24 10:24 Polyethylene Glycol 3350 17 Gm Powd.Pack PO DAILY PRN Constipation Rosuvastatin Calcium 40 mg 09/02/24 10:55 09/05/24 09:29 Rosuvastatin 20 Mg Tablet PO 40 mg DAILY PRAVEENA Administration Senna 8.6 mg 09/03/24 11:00 09/05/24 09:29 Sennosides 8.6 Mg Tablet PO 8.6 mg BID PRAVEENA Administration Labs Labs: Laboratory Results - last 24 hr 09/05/24 05:55 WBC 10.7 H RBC 4.42 L Hgb 12.7 L Hct 40.4 L MCV 91.4 MCH 28.7 MCHC 31.4 L RDW 13.8 Plt Count 254 MPV 8.4 Immature Gran % (Auto) 0.7 H Neut % (Auto) 76.6 H Lymph % (Auto) 8.7 L [place] % (Auto) 10.2 H Eos % (Auto) 3.1 Baso % (Auto) 0.7 Lymph # (Auto) 0.93 [place] # (Auto) 1.1 H Eos # (Auto) 0.3 Baso # (Auto) 0.1 Abs Immat Gran (auto) 0.08 H Absolute Neuts (auto) 8.2 H Absolute Nucleated RBC 0.000 Nucleated RBC % 0.0 Sodium 137 Potassium 4.1 Chloride 101 Carbon Dioxide 26 Anion Gap 10 BUN 14 Creatinine 1.16 Estim Creat Clear Calc 49 Estimated GFR 60 Glucose 113 H Calcium 9.1
--- NOTE | 2024-09-05 12:23 | PM.DS ---
DS: Admitting Diagnosis Discharge Date 09/05/24 Admitting Diagnosis Hematuria DS: Discharge Diagnosis Discharge Diagnosis (1) Gross hematuria: Code(s): R31.0 - Gross hematuria Status: Acute (2) Bladder cancer: Qualifiers: Bladder location: unspecified site Qualified Code(s): C67.9 - Malignant neoplasm of bladder, unspecified Code(s): C67.9 - Malignant neoplasm of bladder, unspecified Status: Acute (3) Chronic anticoagulation: Code(s): Z79.01 - oxygen equipment preparer (current) use of anticoagulants Status: Acute (4) Paroxysmal atrial fibrillation: Code(s): I48.0 - Paroxysmal atrial fibrillation Status: Acute (5) Obstructive sleep apnea on CPAP: Code(s): G47.33 - Obstructive sleep apnea (adult) (pediatric) Status: Acute DS: Summary Hospital Course Hospital Course: This is an 84-year-old male with history of bladder cancer status post transurethral section of bladder tumor and BCG treatment, urethral strictures, prostate cancer diagnosed in June 2021 status post radiation, chronic kidney disease stage IIIA, atrial fibrillation on chronic anticoagulation, hypertension, hyperlipidemia, permanent place maker implantation, obstructive sleep apnea on CPAP, and hyperlipidemia presented to the emergency department via private vehicle with complaints of blood in urine. He had a BCG treatment per Dr. Herbert and he has had some blood in his urine since that time. He is now passing clots and has pretty significant bladder spasms with difficulties voidingl. Morphine given in the ED did not really help with his pain. He was afebrile on arrival with stable vital signs. Labs were significant for WBC count of 18.2, hemoglobin 14.1, creatinine 1.35. Urine was positive for 3+ blood, 1+ leukocyte esterase, greater than 100 RBC, and 6 to 10 WBC. Ultrasound of the pelvis showed echogenic debris in the urinary bladder. He was started on CBI. Urine culture came back as no growth. CBI was able to be discontinued on 09/04/2024. Patient's urine stayed clear afterwards and he had a voiding trial done on day of discharge 09/05/2024. He has follow-up with Urology in a couple days as an outpatient. Time Spent with Patient Time attestation: Total time spent providing and/or coordinating discharge services: Exam Narrative: GENERAL: Comfortable, no acute distress HENMT: moist mucous membranes EYES: EOM intact b/l NECK: no lymphadenopathy RESPIRATORY: clear to auscultation, no increased respiratory effort CARDIO: Regular rate and rhythm GI: soft, nontender, bowel sounds present : Urine clear and yellow SKIN/EXTREMITIES: no rashes, no edema, no redness or tenderness NEURO: PROM intact, answers questions appropriately, A&O x4 DS: Data Data Completed and Pending Labs on day of discharge: Labs from last 24 hours 09/05/24 05:55 WBC 10.7 H RBC 4.42 L Hgb 12.7 L Hct 40.4 L MCV 91.4 MCH 28.7 MCHC 31.4 L RDW 13.8 Plt Count 254 MPV 8.4 Immature Gran % (Auto) 0.7 H Neut % (Auto) 76.6 H Lymph % (Auto) 8.7 L [place] % (Auto) 10.2 H Eos % (Auto) 3.1 Baso % (Auto) 0.7 Lymph # (Auto) 0.93 [place] # (Auto) 1.1 H Eos # (Auto) 0.3 Baso # (Auto) 0.1 Abs Immat Gran (auto) 0.08 H Absolute Neuts (auto) 8.2 H Absolute Nucleated RBC 0.000 Nucleated RBC % 0.0 Sodium 137 Potassium 4.1 Chloride 101 Carbon Dioxide 26 Anion Gap 10 BUN 14 Creatinine 1.16 Estim Creat Clear Calc 49 Estimated GFR 60 Glucose 113 H Calcium 9.1 Discharge Plan Discharge Consulting providers: Terrell Rivas; Alvina Melo Discharging Clinician: Kareen Benton Patient Disposition: Home Activity: as tolerated Diet: regular Discharge Instructions: Discharge disposition: Take medications as prescribed Monitor blood pressures Encouraged to continue with yearly vaccinations Return to the emergency department if he developed sudden shortness of breath, chest pain, nausea, vomiting, upset stomach or intractable diarrhea Return to the emergency department if you develop fever greater than 100.4 Follow-up with the primary care physician within 1-2 weeks Thank you for [facility] for your healthcare needs Patient Instructions: Antibiotic Form Patient Language: Welsh Stand Alone Forms: General Discharge Information Follow-up/Referrals: Terrell Rivas MD [Physician] - Osmani Zamorano MD [Primary Care Provider] - Discharge Medications: Continued Xarelto 20 mg tablet 20 mg PO QPM Aimovig Autoinjector 140 mg/mL auto-injector 140 mg subcut MONTHLY Rx Instructions: TAKES AROUND THE 1ST PART OF THE MONTH metoprolol succinate 50 mg tablet extended release 24 hr 25 mg PO HS magnesium oxide 500 mg Capsule 500 mg PO DAILY nortriptyline 25 mg capsule 50 mg PO Q12H rosuvastatin 40 mg tablet 40 mg PO DAILY 90 Days Qty: 90 3RF Date of admission: 09/02/24 07:37 Primary Care Provider: Osmani Zamorano Admitting Provider: Italia Prieto Attending physician on admission: Italia Prieto Condition: Improved
== END 2024-09-05 13:22 | disposition home or self-care (01) | DRG 696 ==
LOC: ANHED 22:40 → ANH2MED 09-02
PROVIDERS: Nurse Practitioner Acute Care; Physician Assistant; Admitting Provider Internal Medicine; Emergency Provider Emergency Medicine; PCP Family Medicine; Visit Provider Internal Medicine Critical Care Medicine
DX: R31.0 Gross hematuria (principal); C67.9 Malignant neoplasm of bladder, unspecified; I48.0 Paroxysmal atrial fibrillation; G47.33 Obstructive sleep apnea (adult) (pediatric); I12.9 Hypertensive chronic kidney disease with stage 1 through stage 4 chronic kidney disease, or unspecified chronic kidney disease; N18.31 Chronic kidney disease, stage 3a; D63.8 Anemia in other chronic diseases classified elsewhere; E78.2 Mixed hyperlipidemia; Z79.01 Long term (current) use of anticoagulants; Z95.0 Presence of cardiac pacemaker; Z85.46 Personal history of malignant neoplasm of prostate; Z87.891 Personal history of nicotine dependence
CPT/HCPCS: 36415; 76857; 80048; 80053; 81001; 83690; 83735; 85025; 86850; 86900; 86901; 87086; 96361; 96374; 96375; 99285; A9270; G0378; J1171; J2270; J2405; J7030

== ENCOUNTER 2024-09-08 02:47 | Inpatient (IN) | payer MEDICARE, OTHER, SELFPAY ==
[2024-09-08] VITALS (15 sets, daily range): BP systolic 126–148; BP diastolic 60–94; PULSE 79–99; RESP 16–24; TEMP 36.4–36.6; O2SAT 93–99; BMI 30.9
--- NOTE | ~2024-09-08 | CT_ITS ---
CT of the Abdomen and Pelvis: Indication: Hematuria Technique: 2.5 mm axial scans were obtained through the abdomen and pelvis following intravenous adm inistration of 100 cc of Omnipaque 350. Dose reduction technique was used on this scan by utilizing a utomated exposure control and iterative reconstruction technique. The dose-length product (DLP) was 1 029.08 mGy-cm. Findings: Scans through the lung bases are unremarkable. The liver, spleen, pancreas, gallbladder, adrenals and kidneys are within normal limits. No evidence of aortic aneurysm. No lymphadenopathy. No bowel obstruction or bowel wall thickening. There is no evidence to suggest acute appendicitis. Images through the pelvis were performed. Urinary bladder collapsed with Gil catheter. Possible wal l thickening despite this. No pelvic mass evident. Bilateral fat-containing inguinal hernias are pres ent, moderate in size. No ascites. Impression: Suspected cystitis despite decompression with Gil catheter. Evaluation is suboptimal though, and ot her urinary bladder lesions cannot be excluded. Correlate clinically and with urinalysis. Moderate bilateral fat-containing hernias. Reviewed, dictated and finalized at location . Impression: Suspected cystitis despite decompression with Gil catheter. Evaluation is sub optimal though, and other urinary bladder lesions cannot be excluded. Correlate clinically and with urinalysis. Moderate bilateral fat-containing hernias.
[2024-09-08 03:43] LABS: Hematocrit 37.2 % (42.0-52.0); Hemoglobin 11.6 g/dL (14.0-18.0); Immature Granulocyte Percent A 1.7 % (0-0.5); Lymphocytes Absolute Auto 0.98 K/mm3 (0.9-3.2); Mean Corpuscular HGB Conc 31.2 g/dl (32-36); Mean Corpuscular Hemoglobin 29.1 pg (26-34); Mean Corpuscular Volume 93.5 fl (80-100); Nucleated Red Blood Cells Absolute Auto 0.000 K/mm3 (0.0-0.012); Nucleated Red Blood Cells Perc 0.0 % (0.0-0.2); Platelet Count Result 324 k/mm3 (150-375); Red Blood Count 3.98 M/mm3 (4.6-6.20); White Blood Count 7.7 K/mm3 (4.5-10.0)
[2024-09-08 03:49] LABS: Add Urine Microscopic? YES; Appearance Urine Clear (Clear); Glucose Urine UA Negative (Negative); Leukocyte Esterase Ur 1+ LEU/UL (Negative); Nitrate Urine Negative (Negative); Non Pathogenic Casts 0-2; Specific Grav Ur 1.011 (1.001-1.035)
[2024-09-08 03:59] LABS: Alanine Aminotransferase 50 U/L (6-50); Albumin Level 4.1 g/dL (3.5-5.1); Alkaline Phosphatase 77 U/L (38-126); Anion Gap 9 mmol/L (4-12); Aspartate Amino Transferase 60 U/L (17-59); Bilirubin,Total 0.5 mg/dL (0.2-1.3); Blood Urea Nitrogen 23 mg/dL (9-20); Calcium 9.1 mg/dL (8.4-10.2); Carbon Dioxide 24 mmol/L (22-30); Chloride 102 mmol/L (98-107); Estimated CRCL calculation 42 ml/min; Estimated Glomerular Filt Rate > 60; Glucose 122 mg/dL (65-110); Potassium 5.1 mmol/L (3.4-5.0); Sodium 135 mmol/L (137-145); Total Protein 8.0 g/dL (6.3-8.2)
--- OUTSIDE RECORDS SUMMARY | 2024-09-08 04:25 | XMS_ITS | Continuity of Care Document ---
Author Name [facility] Organization [facility] Care Team Providers Care Sebd Teacher Name Role Phone [facility] Unavailable Unavailable Medications Combined list of outpatient [...] 4 2024 14.0 Ambulat ory Pharmac y lamoTRIgine ER [Avkare] 25 mg tablet 75 [...] becoming .Do not chew or crush. 06/24/2024 [id number] 4 2023 [address] [employer] Tony GAMING [place] metoprolol succinate ER 25 mg/24 hour tablet [...] y miconazole 2% cream [15g] See Instruct ions, # 15 g, 0 total refill(s ), [...] Site Reaction Lot Number CVX Code Drug Industrial Registered Nurse Status Comments Source COVID-19, mRNA, LNP-S, PF, 100 mcg or 50 mcg dose 2021 GLENYS Moderna US, Inc. (MOD) Not Given COVID-19, mRNA, LNP-S, PF, 100 mcg or 50 mcg dose DoD COVID-19, mRNA, LNP-S, PF, 100 mcg or 50 mcg dose 2020 KRISTA, Moderna FieldLens, Inc. (MOD) Not Given COVID-19, mRNA, LNP-S, PF, 100 mcg or 50 mcg dose DoD hepatitis A adult vaccine 1998 [id number] [employer]ck & Company Inc complet ed hepatitis A adult vaccine 12/28/98 Given Ambulat ory Pharmac y hepatitis A vaccine, adult dosage 2 1998 Unknown, Provider [id number] 52 Merck (MSD) complet ed hepatitis A vaccine, adult dosage DoD hepatitis A adult vaccine 1998 [id number] Merck & Company Inc complet ed hepatitis A adult vaccine 06/20/98 Given Ambulat ory Pharmac y tetanus-dipht h toxoids (Td) adult/adol [id number] [facility] tetanus-d iphth toxoids (Td) adult/ado l 06/20/98 Given Ambulat ory Pharmac y tetanus and diphtheria toxoids, adsorbed, preservative free, for adult use (2 Lf of tetanus toxoid and 2 Lf of diphtheria toxoid) 1 1998 Unknown, Provider [id number] [facility] complet ed tetanus and diphtheri a [...] up to thelast 18 months, not all [place] non-surgical procedures are included; 2) All procedures [...] Plan No data available for this section 09/08/2024 Ambulatory Pharmacy Functional Status Combined list of recent functional and cognitive assessments recorded at [facility] ([place]VA Functional Murphy Measurement (FIM) Scale: 1 = Total Assistance (Subject = 0% +), 2 = Maximal Assistance (Subject = 25% +), 3 = Moderate Assistance (Subject = 50% +), 4 = Minimal Assistance (Subject = 75% +), 5 = Supervision, 6 = Modified Murphy (Device), 7 = Complete Murphy (Timely, Safely). Assessment Date/Time Source Assessment Type Assessment Skill Assessment Score Assessment Details No data available for this section
--- OUTSIDE RECORDS SUMMARY | 2024-09-08 04:25 | XMS_ITS | Encounter Summary ---
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
--- OUTSIDE RECORDS SUMMARY | 2024-09-08 04:25 | XMS_ITS | Clinical Summary ---
Author Organization [facility] Address [address] [place] [address] Care Team Providers Care Robot Programmer Name Role Phone Osmani Zamorano MD Primary Care Provider [phone] Source Comments [facility],non-owned Affiliates and Associated Physician Practices is amultiple site organization consisting of ambulatory clinics and hospital sitesin [place], [place], [place] and [place]. This disclosure is being madepursuant to the Care Everywhere program and may not contain all information available regarding this patient. Last updated 17.[facility] Allergies Active Allergy Reactions Criticality Noted Date [...] Description 08/22/2024 8:15 AM CDT Clinical Support [facility] [place] [id number] [facility], 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 [address] [place] [address] 11/25/2024 11:30 AM CDT Office Visit [facility] [address] [facility] [place] [address] Shantel Samuel, POOL SERVICER-PRODUCTION CONTROL TECHNOLOGIST [address] [facility] [address] [place] [address] Health Maintenance Due Date Last [...] dysfunction (HCC) from Last 3 Months Insurance [employer]ANCE [employer] MEDICARE [facility] INSURANCE COMPANY [place] [address] [facility] SARAH GARC[place] [id number] [facility] MEDIC[facility] [place] [facility] MEDICARE Care Teams Robot Programmer Relationship Specialty Start Date End Date Osmani Zamorano MD [address] [place] [address] [place] [address] PCP - General Family Medicine 05/24/21
--- OUTSIDE RECORDS SUMMARY | 2024-09-08 04:25 | XMS_ITS | Clinical Summary ---
Author Organization [facility] [address] [place] [address] Care Team Providers Care Feeder Catcher Tobacco Name Role Phone Osmani Zamorano MD Primary Care Provider [phone] Osmani Zamorano MD Unavailable [phone] Referral, Self Unavailable Unavailable YaakovchBlue MD Unavailable [phone] Allergies No known active allergies Medications rivaroxaban [...] 08/20/2020 Assessment & Plan (01/05/2024 3:19 PM PLANOGRAPH OPERATOR): Norman has a longstanding history of vestibular [...] is consulting with specialists Dr. Harden in [facility] Plan: 1. Headache diary 2. [...] months Assessment & Plan (04/09/2022 11:32 AM PLANOGRAPH OPERATOR): Norman presents today with symptoms consistent with [...] glaucoma. I recommended he check with his optical instrument assembler regarding the possibility of taking a calcium channel jess. This may be beneficial. Alternatively, we may consider a medication like Aimovig. He is going to contact me after he talks to his optical instrument assembler and I will write a prescription accordingly. [...] today. Assessment & Plan (04/01/2018 8:30 AM PLANOGRAPH OPERATOR): By CD asymmetry. Does have lens rise [...] fall. Assessment & Plan (04/09/2022 11:33 AM PLANOGRAPH OPERATOR): Has ongoing balance concerns secondary to his [...] Description 07/25/2024 10:30 AM CDT Office Visit [facility] Pulmonary [address] [facility] 6[address] [place] [address] Meenakshi Navarrete MD Obstructive sleep [...] on file Legal Sex Male 2:00 AM PLANOGRAPH OPERATOR Gender Identity Male 12/19/2019 1:16 PM CDT [...] 11/26/2024 11/27/2023 Medical Devices Implanted Type Area Portfolio Director Device Identifier Shelf Expiration Date Model / Serial / Lot Pacemaker Left: Chest Wall Insurance MEDICARE [employer] [facility] MEDICARE SUPPLEMENT INSURANCE MEDICARE FOR LIFE [facility] MEDICARE [place] [address] FOR LIFE [facility] MEDICARE SUPPLEMENT INSURANCE MEDICARE Advance Directives For more information, please contact: [phone] * Full Code (Latest Code Status on File) Date Activated Date Inactivated Comments 01/30/2018 10:14 PM 01/31/2018 3:52 PM Care Teams Feeder Catcher Tobacco Relationship Specialty Start Date End Date Osmani Zamorano MD [address] [place] [address] PCP - General 12/07/19 Osmani Zamorano MD [address] [place] [address] 12/07/19 Referral, Self Referring Physician 03/09/18 Blue Pacheco MD [address] DEPT OPHTHALMOLOGY, [address] [address] Surgeon Ophthalmology 11/27/23
--- OUTSIDE RECORDS SUMMARY | 2024-09-08 04:25 | XMS_ITS | Continuity of Care Document ---
Author Organization [facility] Address [address] [facility] [address] [place] [address] Phone Care Team Providers Care Semiconductor Manufacturing Technician Name Role Phone Roby Raza Unavailable Unavailable Procedures Procedure Date Visual Field Examination-Rylee Hayden Visual Field Examination(s) Office/outpatient Visit, Est Optic Nerve Head Eval No Script Office/outpatient Visit, Est Advance Directives Directive Yes / No Effective Date File Name No Information Encounters Encounter Description Practice Location Reason(s) For Visit Diagnoses Date Provider Providers Copied on Encounter [facility], [address], [place], [place], [id number], tel:[phone] [facility] No Information Dec-200 9 Luz Marnia Ca. [facility] [address], [address], [place], [place], [facility], . tel:[phone] Referring Provider: [facility]ari [facility] [address], [place], [facility]. tel:[phone] [facility], [address], [place], [place], [id number], tel:[phone] [facility] No Information Dec- 4200 [address] Lu[address] Marina [address] [facility] [address], [place], [address], . tel:[phone] Referring Provider: Margi Tiwari [facility] [address], [place], [address]. tel:[phone] Office/outpat ient Visit, [facility], [address], [place], [place], [id number], tel:[phone] [facility] No Information Oct-0 8-200 9 Doisy Edward. [address] [facility] , [address], [place], [address], [place]. tel:[phone] Office/outpat ient Visit, [facility], [address], [place], [place], [id number], [place] tel:[phone] [facility] No Information Sep-2 1-200 7 Doisy Edward. [facility] , [address], [place], [address], . tel:[phone] Family History Family Member Type Diagnosis Age At Onset No Information Payers Payer name Insurance type Covered green party ID Authoriza tion(s) [place] [id number] Social History Type Description Quantity Date Captured [...]
--- OUTSIDE RECORDS SUMMARY | 2024-09-08 04:25 | XMS_ITS | Referral Summary ---
Author Organization [facility] 1 Address [address] [place] [address] Care Team Providers Care Coconut Boiler Name Role Phone Osmani Zamorano MD Primary Care Provider [phone] Osmani Zamorano MD Unavailable [phone] Referral, Self Unavailable Unavailable YaakovchBlue MD Unavailable [phone] Encounters Date Type Department Care Team Description 07/25/2024 10:30 AM CDT Office Visit [facility] Pulmonary [address] [facility] 6th [address] [place] [address] Meenakshi Navarrete MD Obstructive sleep [...] 08/20/2020 Assessment & Plan (01/05/2024 3:19 PM DIRECTOR OF HEMOPHILIA): Norman has a longstanding history of vestibular [...] is consulting with specialists Dr. Harden in [facility] Plan: 1. Headache [...] months Assessment & Plan (04/09/2022 11:32 AM DIRECTOR OF HEMOPHILIA): Norman presents today with symptoms consistent with [...] glaucoma. I recommended he check with his power shovel operator helper regarding the possibility of taking a calcium channel jess. This may be beneficial. Alternatively, we may consider a medication like Aimovig. He is going to contact me after he talks to his power shovel operator helper and I will write a prescription accordingly. [...] today. Assessment & Plan (04/01/2018 8:30 AM DIRECTOR OF HEMOPHILIA): By CD asymmetry. Does have lens rise [...] fall. Assessment & Plan (04/09/2022 11:33 AM DIRECTOR OF HEMOPHILIA): Has ongoing balance concerns secondary to his [...] on file Legal Sex Male 2:00 AM DIRECTOR OF HEMOPHILIA Gender Identity Male 12/19/2019 1:16 PM CDT [...] on file Medical Devices Implanted Type Area Pet Care Technician Device Identifier Shelf Expiration Date Model / Serial / Lot Pacemaker Left: [place] [address] [place] [address] MEDICARE [facility] Address: [facility] [address] [place] [address] [employer] [facility] MEDICARE SUPPLEMENT INSURANCE MEDICARE FOR LIFE CIG MEDICARE SUPPLEMENT INSURANCE FOR LIFE CIGNA MEDICARE SUPPLEMENT INSURANCE MEDICARE Advance Directives For more information, please contact: [phone] * Full Code (Latest Code Status on File) Date Activated Date Inactivated Comments 01/30/2018 10:14 PM 01/31/2018 3:52 PM Care Teams Coconut Boiler Relationship Specialty Start Date End Date Osmani Zamorano MD [address] [place] [address] PCP - General 12/07/19 Osmani Zamorano MD [address] [place] [address] 12/07/19 Referral, Self Referring Physician 03/09/18 Blue Pacheco MD [address] [facility], [address] [address] Surgeon Ophthalmology 11/27/23
--- OUTSIDE RECORDS SUMMARY | 2024-09-08 04:25 | XMS_ITS | Clinical Summary ---
Author Organization [facility] Address [facility] [place] [address] Care Team Providers Care Used Car Sales Manager Name Role Phone Osmani Zamorano MD Primary Care Provider [phone] Allergies No known active allergies Medications HYDROcodone-acet [...] pacemaker in situ 05/26/2021 Paroxysmal atrial fibrillation ([facility]) 04/11/2021 Meniere's disease, cochleovestibular, active, le ft [...] Comments Blood Pressure 165/60 12/30/2022 1:52 AM EDGERMAN Pulse 71 12/30/2022 1:52 AM EDGERMAN Temperature 36.3 C (97.4 F) 12/30/2022 1:52 AM EDGERMAN Respiratory Rate 18 12/30/2022 1:52 AM EDGERMAN Oxygen Saturation 97% 12/30/2022 1:52 AM EDGERMAN Inhaled Oxygen Concentration - - Weight 88.5 kg (195 lb) 12/30/2022 1:52 AM EDGERMAN Height 170.2 cm (5' 7) 12/30/2022 1:52 AM EDGERMAN Body Mass Index 30.54 12/30/2022 1:52 AM EDGERMAN Plan of Treatment Health Maintenance Due Date [...] age to complete this topic Insurance MEDICARE [facility] Care Teams Used Car Sales Manager Relationship Specialty Start Date End Date Osmani Zamorano MD [address] [place] [id number] PCP - General FAMILY PRACTICE 08/21/21
--- NOTE | 2024-09-08 04:47 | ED_ITS ---
HPI - Male Genitourinary General Chief complaint: Urogenital-Male Stated complaint: Bladder Spasms Time Seen by Provider: 09/08/24 03:12 History of Present Illness HPI Narrative: 84-year-old male with complex urological history including bladder cancer status post transurethral resection of bladder tumor and BCG treatments frequently. Patient has a history of prostate cancer as well status post radiation. He has a history of CKD, AFib on chronic anticoagulation, hypertension. Patient presents to the emergency department with urinary tension and bladder spasms. He was just discharged from hospital several days ago after having urinary symptoms requiring continuous bladder irrigation with blood clot passage. He had concern for UTI during his admission but his culture came back with no growth and he was discharged after improvement and clearing up of his catheter. He followed up with his primary urologist the next day and had a cystoscopy without any acute findings or concerns. He presents today as he is having bladder spasms and severe pain as well as some retention. No fever, back pain, abdominal pain, nausea, vomiting. No chest pain difficulty breathing. No trauma or injury. No foul odor with urination, some minor pain with micturition towards the end of his stream however. Related Data Home Medications ?Medication ?Instructions ?Recorded ?Confirmed ?Last Taken ?Type erenumab-aooe 140 mg/mL 140 mg subcut MONTHLY MIGRAINS 08/28/22 09/02/24 02/14/23 History subcutaneous auto-injector (Aimovig Autoinjector) rivaroxaban 20 mg tablet (Xarelto) 20 mg PO QPM 08/28/22 09/02/24 12/13/23 History metoprolol succinate 50 mg 25 mg PO HS 11/09/23 09/02/24 09/01/24 History tablet,extended release 24 hr magnesium oxide 500 mg capsule 500 mg PO DAILY 12/07/23 09/02/24 09/01/24 History nortriptyline 25 mg capsule 50 mg PO Q12H 09/02/24 09/02/24 Unknown History Allergies Allergy/AdvReac Type Severity Reaction Status Date / Time oxybutynin (From Ditropan) AdvReac Hallucinating, Verified 09/01/24 18:49 VIVID DREAMING propanolol AdvReac Severe Chills, Uncoded 09/01/24 18:49 TREMORS Review of Systems 2 Review of Systems: As reviewed above in HPI PMFSH Past Medical History Medical History Obstructive sleep apnea on CPAP Paroxysmal atrial fibrillation Chronic anticoagulation Essential (primary) hypertension Anemia of chronic disease Bladder cancer high grade papillary urothelial carcinoma, noninvasive Vertigo migraine associated Personal history of malignant neoplasm of prostate Prediabetes Mixed hyperlipidemia Chronic kidney disease, stage 3a Surgical History Surgical History History of meniscectomy of right knee History of arthroscopy of right knee History of transurethral resection of bladder tumor (TURBT) History of cystoscopy History of cardiac pacemaker (2020) Family History Family History Mother Cerebrovascular accident Chronic obstructive pulmonary disease Grandparent Congestive heart failure Sibling Diabetes mellitus Hypertension Social History Social History Social History: Surrogate medical decision maker: Emilie Yin, spouse. Code status: Full code. Smoking packs per day: 1 Smoking cigarettes per day: 20.0 Years smoked: 30 Smoking pack-years: 30.00 Smoking status: Former smoker Tobacco type: cigarettes Second hand tobacco smoke exposure: No Smoking end date: 08/23/92 Alcohol intake: current Drinks per week: 7 Alcohol use details: 1 WINE/DAY Substance use: never Substance use type: does not use Do You Feel Safe in your Home?: Yes Lack of Transportation: No Lack of Food: Never True Current Housing: I Have Housing Concerned About Future Housing: No Difficulty Paying Gas/Electric Bills: No Difficulty Paying for Meds: No Currently Unemployed: No Education: Master's Degree or Higher Difficulty w/ Childcare or Family Care: No Additional living arrangements comments: Lives with spouse in [place]. 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 Spiritual care concerns: No Exam 2 Narrative: GENERAL: [Well-appearing, well-nourished, and in no acute distress.] HEAD: [Normocephalic, atraumatic.] EYES: [PERRLA and EOMI.] ENT: Nares clear, no rhinorrhea or epistaxis. Mucous membranes moist. NECK: Supple. CHEST: [Clear to auscultation. No respiratory distress.] HEART: [Regular rate and rhythm]. No murmur heard. [Normal peripheral pulses.] ABDOMEN: [Soft, nondistended], [nontender], [No rigidity or guarding] EXTREMITIES: Normal range of motion. [No edema.] SKIN: Warm, dry, no rash. NEURO: [No focal deficits]. Alert and oriented [x3.] PSYCH: [Normal mood and affect.] Course Vital Signs Vital signs: Vital Signs Temperature 36.6 C 09/08/24 02:50 Pulse Rate 80 09/08/24 02:50 Respiratory Rate 22 H 09/08/24 02:50 Blood Pressure 140/72 09/08/24 02:50 Pulse Oximetry 98 09/08/24 02:50 Oxygen Delivery Room Air 09/08/24 02:50 Temperature 36.6 C 09/08/24 02:50 Pulse Rate 80 09/08/24 02:50 Respiratory Rate 22 H 09/08/24 02:50 Blood Pressure 140/72 09/08/24 02:50 Pulse Oximetry 98 09/08/24 02:50 Oxygen Delivery Room Air 09/08/24 02:50 MDM - Male Genitourinary MDM Narrative Medical decision making narrative: 84-year-old male with complex urological history including bladder cancer status post transurethral resection of bladder tumor and BCG treatments frequently. Patient has a history of prostate cancer as well status post radiation. He has a history of CKD, AFib on chronic anticoagulation, hypertension. Patient presents to the emergency department with urinary tension and bladder spasms. He was just discharged from hospital several days ago after having urinary symptoms requiring continuous bladder irrigation with blood clot passage. He had concern for UTI during his admission but his culture came back with no growth and he was discharged after improvement and clearing up of his catheter. He followed up with his primary urologist the next day and had a cystoscopy without any acute findings or concerns. He presents today as he is having bladder spasms and severe pain as well as some retention. No fever, back pain, abdominal pain, nausea, vomiting. No chest pain difficulty breathing. No trauma or injury. No foul odor with urination, some minor pain with micturition towards the end of his stream however. Patient has an unremarkable physical examination the soft nontender nondistended abdomen he is afebrile with normal vital signs with any tachycardia blood pressure concerns. He did have a postvoid residual bladder scan here that shows significant urinary retention and he was not able to urinate only able to get about 40 cc. Gil catheter was inserted at this time and urinalysis was sent off as well as blood work and urine culture. CT scan shows cystitis and his urinary catheter had gross hematuria began to form but was initially clear. This was exchanged for a 3 way catheter for anticipation of continuous bladder irrigation. Discussed the case with Urology on-call Dr. Bruce who agreed to the plan and will see him this morning. CT scan was obtained that shows cystitis consistent with exam findings and history as well as urinary analysis suspicious for potential infection. He was started on Rocephin. Made NPO at this time and admitted to the hospitalist service as I discussed the case with the hospitalist Dr. Avila. Medical Records Attestation: I reviewed the patient's medical records. Lab Data Attestation: I reviewed the patient's lab results. 09/08/24 03:32 09/08/24 03:32 Labs: Lab Results 09/08/24 Range/Units 03:32 WBC 7.7 (4.5-10.0) K/mm3 RBC 3.98 L (4.6-6.20) M/mm3 Hgb 11.6 L (14.0-18.0) g/dL Hct 37.2 L (42.0-52.0) % MCV 93.5 (80-100) fl MCH 29.1 (26-34) pg MCHC 31.2 L (32-36) g/dl RDW 13.6 (11.5-14.5) % Plt Count 324 (150-375) k/mm3 MPV 9.1 (7.4-10.4) fl Immature Gran % (Auto) 1.7 H (0-0.5) % Neut % (Auto) 66.6 (45.5-73.1) % Lymph % (Auto) 12.7 L (18.3-44.2) % [place] % (Auto) 11.8 H (2.6-8.5) % Eos % (Auto) 6.0 H (0-4.4) % Baso % (Auto) 1.2 (0.2-1.2) % Lymph # (Auto) 0.98 (0.9-3.2) K/mm3 [place] # (Auto) 0.9 H (0.1-0.6) K/mm3 Eos # (Auto) 0.5 H (0-0.3) K/mm3 Baso # (Auto) 0.1 (0.0-0.1) K/mm3 Abs Immat Gran (auto) 0.13 H (0.00-0.031) K/mm3 Absolute Neuts (auto) 5.1 (1.3-6.7) K/mm3 Absolute Nucleated RBC 0.000 (0.0-0.012) K/mm3 Nucleated RBC % 0.0 (0.0-0.2) % Sodium 135 L (137-145) mmol/L Potassium 5.1 H (3.4-5.0) mmol/L Chloride 102 (98-107) mmol/L Carbon Dioxide 24 (22-30) mmol/L Anion Gap 9 (4-12) mmol/L BUN 23 H (9-20) mg/dL Creatinine 1.14 (0.7-1.3) mg/dL Estim Creat Clear Calc 42 ml/min Estimated GFR > 60 (59 - ) Glucose 122 H (65-110) mg/dL Calcium 9.1 (8.4-10.2) mg/dL Total Bilirubin 0.5 (0.2-1.3) mg/dL AST 60 H (17-59) U/L ALT 50 (6-50) U/L Alkaline Phosphatase 77 (38-126) U/L Total Protein 8.0 (6.3-8.2) g/dL Albumin 4.1 (3.5-5.1) g/dL Urine Color Yellow (Yellow) Urine Appearance Clear (Clear) Urine pH 5.5 (5.0-9.0) Ur Specific [place] 1.011 (1.001-1.035) Urine Protein 1+ H (Negative) mg/dL Urine Glucose (UA) Negative (Negative) mg/dL Urine Ketones Negative (Negative) mg/dL Ur Blood (Man) 3+ H (Negative) Urine Nitrate Negative (Negative) Urine Bilirubin Negative (Negative) Urine Urobilinogen 1.0 (<2.0) mg/dL Leukocyte Esterase Rfl 1+ H (Negative) OLMAN/UL Urine RBC >100 H (0-2) /hpf Urine WBC 21-50 H (0-3) /hpf Ur Squamous Epith Cells None seen (Few) /hpf Urine Bacteria Trace /hpf Urine Casts 0-2 Imaging Data Attestation: I personally reviewed and interpreted this imaging study as follows: My impression: Impressions Abdomen/Pelvis CT 09/08/24 06:42 Impression: Suspected cystitis despite decompression with Gil catheter. Evaluation is suboptimal though, and other urinary bladder lesions cannot be excluded. Correlate clinically and with urinalysis. Moderate bilateral fat-containing hernias. Discharge Plan Discharge Clinical Impression: Acute hemorrhagic cystitis, Acute urinary retention, Gross hematuria, Chronic anticoagulation Bladder cancer Qualifiers: Bladder location: unspecified site Qualified Code(s): C67.9 - Malignant neoplasm of bladder, unspecified Patient Disposition: Still a Patient Condition: Stable Patient Language: Finnish Prescriptions: No Action Xarelto 20 mg tablet 20 mg PO QPM Aimovig Autoinjector 140 mg/mL auto-injector 140 mg subcut MONTHLY Rx Instructions: TAKES AROUND THE 1ST PART OF THE MONTH metoprolol succinate 50 mg tablet extended release 24 hr 25 mg PO HS magnesium oxide 500 mg Capsule 500 mg PO DAILY nortriptyline 25 mg capsule 50 mg PO Q12H rosuvastatin 40 mg tablet 40 mg PO DAILY 90 Days Qty: 90 3RF Follow-up/Referrals: Osmani Zamorano MD [Primary Care Provider] - Time of Disposition: 07:24
[2024-09-08] MEDS: cefTRIAXone 1 GM in SODIUM CHLORIDE 0.9% IV 50 ML 100 ML IVPB (06:21)
--- NOTE | 2024-09-08 06:36 | PC.NURSE ---
Pt taken to CT
--- NOTE | 2024-09-08 08:43 | WPDURCON ---
Assessment and Plan Assessment and plan (1) Acute urinary retention: Code(s): R33.8 - Other retention of urine Status: Acute (2) Hematuria: Code(s): R31.9 - Hematuria, unspecified Status: Acute (3) Bladder cancer: Qualifiers: Bladder location: unspecified site Qualified Code(s): C67.9 - Malignant neoplasm of bladder, unspecified Code(s): C67.9 - Malignant neoplasm of bladder, unspecified Status: Acute Plan -CT AP today reveals Suspected cystitis despite decompression with Gil catheter. Evaluation is suboptimal though, and other urinary bladder lesions cannot be excluded. Correlate clinically and with urinalysis. -WBC and cr wnl -ua possible infection. culture pending. Culture driven antibiotics per primary service. -No urological surgical intervention planned for now. -Patient may eat -Put on CBI to clear urine Urology Consult Note HPI Date Seen: 09/08/24 Requesting Physician: Joan Avila MD Primary Care Provider: Osmani Zamorano MD Family Provider: 84-year-old male with complex urological history including bladder cancer status post transurethral resection of bladder tumor and BCG treatments frequently. Patient has a history of prostate cancer as well status post radiation. He has a history of CKD, AFib on chronic anticoagulation, hypertension. Patient presents to the emergency department with urinary tension and bladder spasms. He was just discharged from hospital several days ago after having urinary symptoms requiring continuous bladder irrigation with blood clot passage. He had concern for UTI during his admission but his culture came back with no growth and he was discharged after improvement and clearing up of his catheter. He followed up with his primary urologist the next day and had a cystoscopy without any acute findings or concerns. He presents today as he is having bladder spasms and severe pain as well as some retention. No fever, back pain, abdominal pain, nausea, vomiting. No chest pain difficulty breathing. No trauma or injury. No foul odor with urination, some minor pain with micturition towards the end of his stream however Consult Narrative Narrative: Norman Yin is a 84 year old male Review of Systems Review of Systems: All systems reviewed & are unremarkable except as noted in HPI and below PMFSH Past Medical History Medical History Obstructive sleep apnea on CPAP Paroxysmal atrial fibrillation Chronic anticoagulation Essential (primary) hypertension Anemia of chronic disease Bladder cancer high grade papillary urothelial carcinoma, noninvasive Vertigo migraine associated Personal history of malignant neoplasm of prostate Prediabetes Mixed hyperlipidemia Chronic kidney disease, stage 3a Surgical History Surgical History History of meniscectomy of right knee History of arthroscopy of right knee History of transurethral resection of bladder tumor (TURBT) History of cystoscopy History of cardiac pacemaker (2020) Family History Family History Mother Cerebrovascular accident Chronic obstructive pulmonary disease Grandparent Congestive heart failure Sibling Diabetes mellitus Hypertension Social History Social History Social History: Surrogate medical decision maker: Emilie Humphrey, spouse. Code status: Full code. Smoking packs per day: 1 Smoking cigarettes per day: 20.0 Years smoked: 30 Smoking pack-years: 30.00 Smoking status: Former smoker Second hand tobacco smoke exposure: No Alcohol intake: current Drinks per week: 7 Alcohol use details: 1 WINE/DAY Substance use: never Substance use type: does not use Do You Feel Safe in your Home?: Yes Lack of Transportation: No Lack of Food: Never True Current Housing: I Have Housing Concerned About Future Housing: No Difficulty Paying Gas/Electric Bills: No Difficulty Paying for Meds: No Currently Unemployed: No Education: Master's Degree or Higher Difficulty w/ Childcare or Family Care: No Additional living arrangements comments: Lives with spouse in [place]. 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 Spiritual care concerns: No Meds Home Medications and Allergies Home Medications ?Medication ?Instructions ?Recorded ?Confirmed ?Type erenumab-aooe 140 mg/mL 140 mg subcut MONTHLY MIGRAINS 08/28/22 09/08/24 History subcutaneous auto-injector (Aimovig Autoinjector) rivaroxaban 20 mg tablet (Xarelto) 20 mg PO QPM 08/28/22 09/08/24 History metoprolol succinate 50 mg 25 mg PO Q12H 11/09/23 09/08/24 History tablet,extended release 24 hr magnesium oxide 500 mg capsule 500 mg PO DAILY 12/07/23 09/08/24 History nortriptyline 25 mg capsule 50 mg PO Q12H 09/02/24 09/08/24 History lamotrigine 25 mg tablet 50 mg PO Q12H 09/08/24 09/08/24 History metoprolol succinate 25 mg 25 mg PO Q12H 09/08/24 09/08/24 History tablet,extended release 24 hr rosuvastatin 40 mg tablet 40 mg PO HS 09/08/24 09/08/24 History Allergies Allergy/AdvReac Type Severity Reaction Status Date / Time oxybutynin (From Ditropan) AdvReac Hallucinating, Verified 09/01/24 18:49 VIVID DREAMING propanolol AdvReac Severe Chills, Uncoded 09/01/24 18:49 TREMORS Vital Signs Vital Signs - 24 hr 09/08/24 02:50 09/08/24 06:23 09/08/24 06:45 Temperature 98 F Pulse Rate 80 81 82 Respiratory Rate 22 H 20 20 Blood Pressure 140/72 Pulse Oximetry 98 98 96 Oxygen Delivery Room Air 09/08/24 06:46 09/08/24 07:02 09/08/24 07:17 Temperature Pulse Rate 79 83 87 Respiratory Rate 24 H 23 H 21 H Blood Pressure 135/79 137/81 145/94 H Pulse Oximetry 99 99 99 Oxygen Delivery 09/08/24 07:46 09/08/24 07:56 Temperature Pulse Rate 82 84 Respiratory Rate 21 H 21 H Blood Pressure 147/76 H 147/76 H Pulse Oximetry 93 96 Oxygen Delivery Exam Const: General: comfortable and no acute distress Eyes: General: appearance normal, both eyes and all related structures Resp: Effort & Inspection: normal respiratory effort Urinary Catheter: Urinary Catheter: patent and draining and urine red Skin: General skin exam: normal color Neuro: Speech: normal speech Psych: Speech and movement: Normal speech and movement present Results Labs 09/08/24 03:32 09/08/24 03:32 Labs: Short CBC 09/08/24 Range/Units 03:32 WBC 7.7 (4.5-10.0) K/mm3 Hgb 11.6 L (14.0-18.0) g/dL Hct 37.2 L (42.0-52.0) % Plt Count 324 (150-375) k/mm3 BMP 09/08/24 03:32 Sodium 135 L Potassium 5.1 H Chloride 102 Carbon Dioxide 24 BUN 23 H Creatinine 1.14 Glucose 122 H Calcium 9.1 Liver Function 09/08/24 Range/Units 03:32 Total Bilirubin 0.5 (0.2-1.3) mg/dL AST 60 H (17-59) U/L ALT 50 (6-50) U/L Alkaline Phosphatase 77 (38-126) U/L Albumin 4.1 (3.5-5.1) g/dL Urine 09/08/24 Range/Units 03:32 Urine Color Yellow (Yellow) Urine Appearance Clear (Clear) Urine pH 5.5 (5.0-9.0) Ur Specific [place] 1.011 (1.001-1.035) Urine Protein 1+ H (Negative) mg/dL Urine Glucose (UA) Negative (Negative) mg/dL
--- NOTE | 2024-09-08 09:23 | ADMGEN ---
This patient, Norman Yin, was admitted to Medical Room 261-01. Patient/family oriented to hospital policies and general routines including ID bracelet, bed and alarms, visiting hours, pain management, procedures, bathroom and other care routines, personal items, smoking policy, room service/diet, and visiting hours. Information on how to activate the Rapid Response Team has been discussed. Patient/Family are encouraged to report perceived risks to care and to ask questions if they do not understand what they are told or what they should do.
[2024-09-08] MEDS: MORPHINE SULFATE (*CRX) 2 MG/ML INJ IV PUSH (09:37)
--- NOTE | 2024-09-08 15:05 | PM.IMHP ---
H&P: HPI History of Present Illness Date/Time: 09/08/24 15:05 Chief Complaint: abd pain, hematuria Narrative: This is an 84-year-old male with history of bladder cancer status post transurethral section of bladder tumor and BCG treatment, urethral strictures, prostate cancer diagnosed in June 2021 status post radiation, chronic kidney disease stage IIIA, atrial fibrillation on chronic anticoagulation, hypertension, hyperlipidemia, permanent place maker implantation, obstructive sleep apnea on CPAP, and hyperlipidemia presented to the emergency department via private vehicle with complaints of blood in urine. Patient recently was admitted to hospital on 09/02/24 with same problem and was treated with CBI.Urine culture came back as no growth. CBI was able to be discontinued on 09/04/2024. Patient's urine stayed clear afterwards and he had a voiding trial done on day of discharge 09/05/2024. he followed with urologist yesterday. Patient had cystoscopy yesterday and developed abd /bladder spasm presented to er for further management. In the er urology team was consulted started on DBI and initially ahd hematuria and some clots but later was clear. urology team was consulted. Review of Systems Review of Systems: As reviewed above in HPI All systems reviewed & are unremarkable except as noted in HPI and below PMFSH Past Medical History Medical History Obstructive sleep apnea on CPAP Paroxysmal atrial fibrillation Chronic anticoagulation Essential (primary) hypertension Anemia of chronic disease Bladder cancer high grade papillary urothelial carcinoma, noninvasive Vertigo migraine associated Personal history of malignant neoplasm of prostate Prediabetes Mixed hyperlipidemia Chronic kidney disease, stage 3a Surgical History Surgical History History of meniscectomy of right knee History of arthroscopy of right knee History of transurethral resection of bladder tumor (TURBT) History of cystoscopy History of cardiac pacemaker (2020) Family History Family History Mother Cerebrovascular accident Chronic obstructive pulmonary disease Grandparent Congestive heart failure Sibling Diabetes mellitus Hypertension Social History Social History Social History: Surrogate medical decision maker: Emilie Yin, spouse. Code status: Full code. Smoking packs per day: 1 Smoking cigarettes per day: 20.0 Years smoked: 30 Smoking pack-years: 30.00 Smoking status: Former smoker Second hand tobacco smoke exposure: No Alcohol intake: current Drinks per week: 7 Alcohol use details: 1 WINE/DAY Substance use: never Substance use type: does not use Do You Feel Safe in your Home?: Yes Lack of Transportation: No Lack of Food: Never True Current Housing: I Have Housing Concerned About Future Housing: No Difficulty Paying Gas/Electric Bills: No Difficulty Paying for Meds: No Currently Unemployed: No Education: Master's Degree or Higher Difficulty w/ Childcare or Family Care: No Additional living arrangements comments: Lives with spouse in [place]. 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 Spiritual care concerns: No Meds Home Medications and Allergies Home Medications ?Medication ?Instructions ?Recorded ?Confirmed ?Type erenumab-aooe 140 mg/mL 140 mg subcut MONTHLY MIGRAINS 08/28/22 09/08/24 History subcutaneous auto-injector (Aimovig Autoinjector) rivaroxaban 20 mg tablet (Xarelto) 20 mg PO QPM 08/28/22 09/08/24 History metoprolol succinate 50 mg 25 mg PO Q12H 11/09/23 09/08/24 History tablet,extended release 24 hr magnesium oxide 500 mg capsule 500 mg PO DAILY 12/07/23 09/08/24 History nortriptyline 25 mg capsule 50 mg PO Q12H 09/02/24 09/08/24 History lamotrigine 25 mg tablet 50 mg PO Q12H 09/08/24 09/08/24 History metoprolol succinate 25 mg 25 mg PO Q12H 09/08/24 09/08/24 History tablet,extended release 24 hr rosuvastatin 40 mg tablet 40 mg PO HS 09/08/24 09/08/24 History Allergies Allergy/AdvReac Type Severity Reaction Status Date / Time oxybutynin (From Ditropan) AdvReac Hallucinating, Verified 09/01/24 18:49 VIVID DREAMING propanolol AdvReac Severe Chills, Uncoded 09/01/24 18:49 TREMORS Vital Signs Vital Signs - 24 hr 09/08/24 02:50 09/08/24 06:23 09/08/24 06:45 Temperature 98 F Pulse Rate 80 81 82 Respiratory Rate 22 H 20 20 Blood Pressure 140/72 Pulse Oximetry 98 98 96 Oxygen Delivery Room Air 09/08/24 06:46 09/08/24 07:02 09/08/24 07:17 Temperature Pulse Rate 79 83 87 Respiratory Rate 24 H 23 H 21 H Blood Pressure 135/79 137/81 145/94 H Pulse Oximetry 99 99 99 Oxygen Delivery 09/08/24 07:46 09/08/24 07:56 09/08/24 08:25 Temperature 97.8 F Pulse Rate 82 84 83 Respiratory Rate 21 H 21 H 18 Blood Pressure 147/76 H 147/76 H 137/65 Pulse Oximetry 93 96 98 Oxygen Delivery 09/08/24 10:40 09/08/24 11:20 Temperature Pulse Rate Respiratory Rate Blood Pressure Pulse Oximetry 96 Oxygen Delivery Room Air Room Air Exam Narrative: GENERAL: [Well-appearing, well-nourished, and in no acute distress.] HEAD: [Normocephalic, atraumatic.] EYES: [PERRLA and EOMI.] ENT: Nares clear, no rhinorrhea or epistaxis. Mucous membranes moist. NECK: Supple. CHEST: [Clear to auscultation. No respiratory distress.] HEART: [Regular rate and rhythm]. No murmur heard. [Normal peripheral pulses.] ABDOMEN: [Soft, nondistended], [nontender], [No rigidity or guarding] EXTREMITIES: Normal range of motion. [No edema.] SKIN: Warm, dry, no rash. NEURO: [No focal deficits]. Alert and oriented [x3.] PSYCH: [Normal mood and affect.] Const: General: comfortable and no acute distress Eyes: General: appearance normal, both eyes and all related structures Resp: Effort & Inspection: normal respiratory effort Urinary Catheter: Urinary Catheter: patent and draining and urine red Skin: General skin exam: normal color Neuro: Speech: normal speech Psych: Speech and movement: Normal speech and movement present H&P: Results Labs Labs: Short CBC 09/08/24 Range/Units 03:32 WBC 7.7 (4.5-10.0) K/mm3 Hgb 11.6 L (14.0-18.0) g/dL Hct 37.2 L (42.0-52.0) % Plt Count 324 (150-375) k/mm3 BMP 09/08/24 03:32 Sodium 135 L Potassium 5.1 H Chloride 102 Carbon Dioxide 24 BUN 23 H Creatinine 1.14 Glucose 122 H Calcium 9.1 Liver Function 09/08/24 Range/Units 03:32 Total Bilirubin 0.5 (0.2-1.3) mg/dL AST 60 H (17-59) U/L ALT 50 (6-50) U/L Alkaline Phosphatase 77 (38-126) U/L Albumin 4.1 (3.5-5.1) g/dL Urine 09/08/24 Range/Units 03:32 Urine Color Yellow (Yellow) Urine Appearance Clear (Clear) Urine pH 5.5 (5.0-9.0) Ur Specific [place] 1.011 (1.001-1.035) Urine Protein 1+ H (Negative) mg/dL Urine Glucose (UA) Negative (Negative) mg/dL Assessment and Plan Assessment and plan (1) Acute urinary retention: Code(s): R33.8 - Other retention of urine Status: Acute (2) Hematuria: Code(s): R31.9 - Hematuria, unspecified Status: Acute (3) Bladder cancer: Qualifiers: Bladder location: unspecified site Qualified Code(s): C67.9 - Malignant neoplasm of bladder, unspecified Code(s): C67.9 - Malignant neoplasm of bladder, unspecified Status: Acute Plan Hematuria Bladder spasms Patient presented to the emergency department for evaluation of hematuria with blood clots following cystoscopy yesterday Continue CBI Uc pending continue Rocephin --holding rivaroxaban --Urology consulted, appreciate recommendations --Oxybutynin not prescribed due to hx hallucinations. Spasms have resolved with bladder irrigation --Void trial per urology, Jeffery singh this admission Acute Pain --Acetaminophen, Oxycodone, morphine prn ALLYSON --CPAP hs Afib --Continue metoprolol xarelto on hold
[2024-09-08] MEDS: METOPROLOL SUCCINATE EXT REL 25 MG TABCR PO (20:22)
[2024-09-08] MEDS: ROSUVASTATIN 20 MG TABLET 40 MG PO (20:22)
[2024-09-08] MEDS: lamoTRIgine 50 MG TABLET PO (20:23)
[2024-09-09] VITALS (8 sets, daily range): BP systolic 102–140; BP diastolic 74–80; PULSE 75–96; RESP 16–18; TEMP 36.1–36.5; O2SAT 96–98
[2024-09-09 05:52] LABS: Hematocrit 39.1 % (42.0-52.0); Hemoglobin 12.0 g/dL (14.0-18.0); Mean Corpuscular HGB Conc 30.7 g/dl (32-36); Mean Corpuscular Hemoglobin 28.4 pg (26-34); Mean Corpuscular Volume 92.7 fl (80-100); Platelet Count Result 343 k/mm3 (150-375); Red Blood Count 4.22 M/mm3 (4.6-6.20); White Blood Count 8.5 K/mm3 (4.5-10.0)
[2024-09-09 06:14] LABS: Anion Gap 9 mmol/L (4-12); Blood Urea Nitrogen 19 mg/dL (9-20); Calcium 9.2 mg/dL (8.4-10.2); Carbon Dioxide 22 mmol/L (22-30); Chloride 105 mmol/L (98-107); Estimated CRCL calculation 44 ml/min; Estimated Glomerular Filt Rate 55; Glucose 116 mg/dL (65-110); Potassium 4.3 mmol/L (3.4-5.0); Sodium 136 mmol/L (137-145)
[2024-09-09] MEDS: METOPROLOL SUCCINATE EXT REL 25 MG TABCR PO ×2 (07:59→21:05)
[2024-09-09] MEDS: lamoTRIgine 50 MG TABLET PO ×2 (07:59→21:06)
[2024-09-09] MEDS: MAGNESIUM OXIDE 400 MG TABLET PO (07:59)
--- NOTE | 2024-09-09 10:54 | PM.IMPN ---
Progress Note: A&P Assessment and Plan (1) Acute urinary retention: Code(s): R33.8 - Other retention of urine Status: Acute (2) Hematuria: Code(s): R31.9 - Hematuria, unspecified Status: Acute (3) Bladder cancer: Qualifiers: Bladder location: unspecified site Qualified Code(s): C67.9 - Malignant neoplasm of bladder, unspecified Code(s): C67.9 - Malignant neoplasm of bladder, unspecified Status: Acute Plan Hematuria Bladder spasms Patient presented to the emergency department for evaluation of hematuria with blood clots following cystoscopy day before admission Continue CBI Uc pending continue Rocephin --holding rivaroxaban --Urology consulted, appreciate recommendations --Oxybutynin not prescribed due to hx hallucinations. Spasms have resolved with bladder irrigation Acute Pain --Acetaminophen, Oxycodone, morphine prn [place] --CPAP hs Afib --Continue metoprolol xarelto on hold obesity lifestyle modification HLD statin hyponatremia mild monitor for now Subjective Date/time seen: 09/09/24 10:54 Review of Systems Review of Systems: As reviewed above in HPI All systems reviewed & are unremarkable except as noted in HPI and below Exam Narrative: GENERAL: [Well-appearing, well-nourished, and in no acute distress.] HEAD: [Normocephalic, atraumatic.] EYES: [PERRLA and EOMI.] ENT: Nares clear, no rhinorrhea or epistaxis. Mucous membranes moist. NECK: Supple. CHEST: [Clear to auscultation. No respiratory distress.] HEART: [Regular rate and rhythm]. No murmur heard. [Normal peripheral pulses.] ABDOMEN: [Soft, nondistended], [nontender], [No rigidity or guarding] EXTREMITIES: Normal range of motion. [No edema.] SKIN: Warm, dry, no rash. NEURO: [No focal deficits]. Alert and oriented [x3.] PSYCH: [Normal mood and affect.] Const: General: comfortable and no acute distress Eyes: General: appearance normal, both eyes and all related structures Resp: Effort & Inspection: normal respiratory effort Urinary Catheter: Urinary Catheter: patent and draining and urine red Skin: General skin exam: normal color Neuro: Speech: normal speech Psych: Speech and movement: Normal speech and movement present Objective Data Vital Signs Vital Signs: Vital Signs - 24 hr 09/08/24 11:20 09/08/24 15:00 09/08/24 20:00 Temperature 97.6 F Pulse Rate 90 Respiratory Rate 18 Blood Pressure 126/60 Pulse Oximetry 96 96 Oxygen Delivery Room Air Room Air 09/08/24 20:20 09/08/24 20:22 09/08/24 20:36 Temperature 97.6 F Pulse Rate 99 99 Respiratory Rate 16 Blood Pressure 148/70 H Pulse Oximetry 97 97 Oxygen Delivery Room Air 09/08/24 22:00 09/09/24 01:10 09/09/24 02:20 Temperature 97.6 F Pulse Rate 83 89 79 Respiratory Rate 16 Blood Pressure 140/80 Pulse Oximetry 97 97 97 Oxygen Delivery 09/09/24 06:29 09/09/24 07:59 09/09/24 08:00 Temperature 97.6 F Pulse Rate 83 76 Respiratory Rate 16 Blood Pressure 134/80 Pulse Oximetry 98 Oxygen Delivery Room Air Intake/Output Intake/Output: Intake & Output 09/06/24 09/07/24 09/08/24 09/09/24 23:59 23:59 23:59 23:59 Intake Total 1080 660 Output Total 2711 1250 Balance -4657 -168 Meds/Results Medications: Active Medications Generic Name Dose Route Start Last Admin Trade Name Freq PRN Reason Stop Dose Admin Acetaminophen 650 mg 09/08/24 07:19 Acetaminophen 325 Mg Tablet PO Q4H PRN Mild Pain (1-3) or Fever Lamotrigine 50 mg 09/08/24 12:25 09/09/24 07:59 Lamotrigine 50 Mg Tablet PO 50 mg Q12HR PRAVEENA Administration Magnesium Oxide 400 mg 09/09/24 09:00 09/09/24 07:59 Magnesium Oxide 400 Mg Tablet PO 400 mg DAILY PRAVEENA Administration Metoprolol Succinate 25 mg 09/08/24 12:25 09/09/24 07:59 Metoprolol Succinate Ext Rel 25 Mg Tabcr PO 25 mg Q12HR PRAVEENA Administration Ondansetron HCl 4 mg 09/08/24 07:19 Ondansetron Inj 4 Mg/2 Ml Vial IV PUSH Q4H PRN Nausea Rosuvastatin Calcium 40 mg 09/08/24 21:00 09/08/24 20:22 Rosuvastatin 20 Mg Tablet PO 40 mg HS PRAVEENA Administration Radiology Results: ITS Impressions Abdomen/Pelvis CT 09/08/24 06:42 Impression: Suspected cystitis despite decompression with Gil catheter. Evaluation is suboptimal though, and other urinary bladder lesions cannot be excluded. Correlate clinically and with urinalysis. Moderate bilateral fat-containing hernias. Labs Labs: Laboratory Results - last 24 hr 09/09/24 04:49 WBC 8.5 RBC 4.22 L Hgb 12.0 L Hct 39.1 L MCV 92.7 MCH 28.4 MCHC 30.7 L RDW 13.5 Plt Count 343 MPV 8.1 Sodium 136 L Potassium 4.3 Chloride 105 Carbon Dioxide 22 Anion Gap 9 BUN 19 Creatinine 1.25 Estim Creat Clear Calc 44 Estimated GFR 55 L Glucose 116 H Calcium 9.2
--- NOTE | 2024-09-09 14:04 | WPDUROPN2 ---
Progress Note: A&P Assessment and Plan (1) Gross hematuria: Code(s): R31.0 - Gross hematuria Status: Acute Assessment and Plan: Doing well at present time. We will keep CBI overnight and wean to off in morning. If urine remains clear could possibly have a voiding trial prior to leaving. Subjective Subjective Date/Time Seen: 09/09/24 14:04 Interval history: Norman stated that his urine was slightly bloody overnight. They resumed CBI this morning. At the present time it is fairly clear with minimal drops in. He is very anxious about going home given his recent hospitalization. Hemodynamically stable. Review of Systems Review of Systems: All systems reviewed & are unremarkable except as noted in HPI and below Exam Const: General: cooperative and comfortable Resp: Effort & Inspection: normal respiratory effort Cardio: Rate: regular rate Rhythm: regular rhythm Urinary Catheter: Urinary Catheter: patent and draining and urine clear Objective Data Vital Signs Vital Signs: Vital Signs - 24 hr 09/08/24 15:00 09/08/24 20:00 09/08/24 20:20 Temperature 36.4 C 36.4 C Pulse Rate 90 99 Respiratory Rate 18 16 Blood Pressure 126/60 148/70 H Pulse Oximetry 96 97 Oxygen Delivery Room Air 09/08/24 20:22 09/08/24 20:36 09/08/24 22:00 Temperature Pulse Rate 99 83 Respiratory Rate Blood Pressure Pulse Oximetry 97 97 Oxygen Delivery Room Air 09/09/24 01:10 09/09/24 02:20 09/09/24 06:29 Temperature 36.4 C 36.4 C Pulse Rate 89 79 83 Respiratory Rate 16 16 Blood Pressure 140/80 134/80 Pulse Oximetry 97 97 98 Oxygen Delivery 09/09/24 07:59 09/09/24 08:00 Temperature Pulse Rate 76 Respiratory Rate Blood Pressure Pulse Oximetry Oxygen Delivery Room Air Intake/Output Intake/Output: Intake & Output 09/06/24 09/07/24 09/08/24 09/09/24 23:59 23:59 23:59 23:59 Intake Total 1080 900 Output Total 5077 9530 Balance -8935 350 Meds/Results Medications: Active Medications Generic Name Dose Route Start Last Admin Trade Name Freq PRN Reason Stop Dose Admin Acetaminophen 650 mg 09/08/24 07:19 Acetaminophen 325 Mg Tablet PO Q4H PRN Mild Pain (1-3) or Fever Lamotrigine 50 mg 09/08/24 12:25 09/09/24 07:59 Lamotrigine 50 Mg Tablet PO 50 mg Q12HR PRAVEENA Administration Magnesium Oxide 400 mg 09/09/24 09:00 09/09/24 07:59 Magnesium Oxide 400 Mg Tablet PO 400 mg DAILY PRAVEENA Administration Metoprolol Succinate 25 mg 09/08/24 12:25 09/09/24 07:59 Metoprolol Succinate Ext Rel 25 Mg Tabcr PO 25 mg Q12HR PRAVEENA Administration Ondansetron HCl 4 mg 09/08/24 07:19 Ondansetron Inj 4 Mg/2 Ml Vial IV PUSH Q4H PRN Nausea Rosuvastatin Calcium 40 mg 09/08/24 21:00 09/08/24 20:22 Rosuvastatin 20 Mg Tablet PO 40 mg HS PRAVEENA Administration Radiology Results: ITS Impressions Abdomen/Pelvis CT 09/08/24 06:42 Impression: Suspected cystitis despite decompression with Gil catheter. Evaluation is suboptimal though, and other urinary bladder lesions cannot be excluded. Correlate clinically and with urinalysis. Moderate bilateral fat-containing hernias. Labs Labs: Laboratory Results - last 24 hr 09/09/24 04:49 WBC 8.5 RBC 4.22 L Hgb 12.0 L Hct 39.1 L MCV 92.7 MCH 28.4 MCHC 30.7 L RDW 13.5 Plt Count 343 MPV 8.1 Sodium 136 L Potassium 4.3 Chloride 105 Carbon Dioxide 22 Anion Gap 9 BUN 19 Creatinine 1.25 Estim Creat Clear Calc 44 Estimated GFR 55 L Glucose 116 H Calcium 9.2
[2024-09-09] MEDS: ROSUVASTATIN 20 MG TABLET 40 MG PO (21:06)
[2024-09-10 04:37] VITALS: BP 137/77; PULSE 77; RESP 17; TEMP 36.9; O2SAT 95
[2024-09-10 05:04] LABS: Hematocrit 39.2 % (42.0-52.0); Hemoglobin 12.5 g/dL (14.0-18.0); Mean Corpuscular HGB Conc 31.9 g/dl (32-36); Mean Corpuscular Hemoglobin 28.7 pg (26-34); Mean Corpuscular Volume 90.1 fl (80-100); Platelet Count Result 319 k/mm3 (150-375); Red Blood Count 4.35 M/mm3 (4.6-6.20); White Blood Count 7.5 K/mm3 (4.5-10.0)
[2024-09-10 05:26] LABS: Anion Gap 8 mmol/L (4-12); Blood Urea Nitrogen 18 mg/dL (9-20); Calcium 9.3 mg/dL (8.4-10.2); Carbon Dioxide 26 mmol/L (22-30); Chloride 104 mmol/L (98-107); Estimated CRCL calculation 45 ml/min; Estimated Glomerular Filt Rate 57; Glucose 113 mg/dL (65-110); Potassium 4.4 mmol/L (3.4-5.0); Sodium 138 mmol/L (137-145)
--- NOTE | 2024-09-10 08:38 | P.PNUR_ITS ---
Progress Note: A&P Assessment and Plan (1) Gross hematuria: Code(s): R31.0 - Gross hematuria Status: Acute Assessment and Plan: * Episode of hematuria requiring hand irrigation last night. Urine clear again this morning. * Will stop CBI today and watch through the day with possible voiding trial tomorrow morning Subjective Subjective Date/Time Seen: 09/10/24 08:38 Interval history: Episode of clot retention requiring hand irrigation again last night. Urine clear this morning on slow CBI Review of Systems Review of Systems: All systems reviewed & are unremarkable except as noted in HPI and below Exam Const: General: no acute distress Resp: Effort & Inspection: normal respiratory effort GI: Inspection: non-distended GI Palp: No abdominal tenderness and No Guarding due to palpation present (GI) Auscultation: normal bowel sounds Urinary Catheter: Urinary Catheter: patent and draining and urine clear Objective Data Vital Signs Vital Signs: Vital Signs - 24 hr 09/09/24 13:57 09/09/24 20:00 09/09/24 20:20 Temperature 97.0 F L 97.7 F Pulse Rate 80 96 Respiratory Rate 18 18 Blood Pressure 123/78 102/74 Pulse Oximetry 96 96 Oxygen Delivery Room Air 09/09/24 20:58 09/09/24 21:05 09/10/24 04:37 Temperature 98.4 F Pulse Rate 75 77 Respiratory Rate 17 Blood Pressure 137/77 Pulse Oximetry 97 95 Oxygen Delivery Room Air 09/10/24 07:55 Temperature Pulse Rate Respiratory Rate Blood Pressure Pulse Oximetry Oxygen Delivery Room Air Intake/Output Intake/Output: Intake & Output 09/07/24 09/08/24 09/09/24 09/10/24 23:59 23:59 23:59 23:59 Intake Total 7144 1690 250 Output Total 0935 9749 900 Balance -2964 -7257 -593 Meds/Results Medications: Active Medications Generic Name Dose Route Start Last Admin Trade Name Freq PRN Reason Stop Dose Admin Acetaminophen 650 mg 09/08/24 07:19 Acetaminophen 325 Mg Tablet PO Q4H PRN Mild Pain (1-3) or Fever Lamotrigine 50 mg 09/08/24 12:25 09/09/24 21:06 Lamotrigine 50 Mg Tablet PO 50 mg Q12HR PRAVEENA Administration Magnesium Oxide 400 mg 09/09/24 09:00 09/09/24 07:59 Magnesium Oxide 400 Mg Tablet PO 400 mg DAILY PRAVEENA Administration Metoprolol Succinate 25 mg 09/08/24 12:25 09/09/24 21:05 Metoprolol Succinate Ext Rel 25 Mg Tabcr PO 25 mg Q12HR PRAVEENA Administration Ondansetron HCl 4 mg 09/08/24 07:19 Ondansetron Inj 4 Mg/2 Ml Vial IV PUSH Q4H PRN Nausea Rosuvastatin Calcium 40 mg 09/08/24 21:00 09/09/24 21:06 Rosuvastatin 20 Mg Tablet PO 40 mg HS PRAVEENA Administration Radiology Results: ITS Impressions Abdomen/Pelvis CT 09/08/24 06:42 Impression: Suspected cystitis despite decompression with Gil catheter. Evaluation is suboptimal though, and other urinary bladder lesions cannot be excluded. Correlate clinically and with urinalysis. Moderate bilateral fat-containing hernias. Labs Labs: Laboratory Results - last 24 hr 09/10/24 04:58 WBC 7.5 RBC 4.35 L Hgb 12.5 L Hct 39.2 L MCV 90.1 MCH 28.7 MCHC 31.9 L RDW 13.5 Plt Count 319 MPV 7.8 Sodium 138 Potassium 4.4 Chloride 104 Carbon Dioxide 26 Anion Gap 8 BUN 18 Creatinine 1.21 Estim Creat Clear Calc 45 Estimated GFR 57 L Glucose 113 H Calcium 9.3
[2024-09-10 09:25] VITALS: PULSE 77
[2024-09-10] MEDS: MAGNESIUM OXIDE 400 MG TABLET PO (09:25)
[2024-09-10] MEDS: lamoTRIgine 50 MG TABLET PO ×2 (09:25→20:06)
[2024-09-10] MEDS: METOPROLOL SUCCINATE EXT REL 25 MG TABCR PO ×2 (09:25→20:06)
--- NOTE | 2024-09-10 12:32 | PM.IMPN ---
Progress Note: A&P Assessment and Plan (1) Acute urinary retention: Code(s): R33.8 - Other retention of urine Status: Acute (2) Hematuria: Code(s): R31.9 - Hematuria, unspecified Status: Acute (3) Bladder cancer: Qualifiers: Bladder location: unspecified site Qualified Code(s): C67.9 - Malignant neoplasm of bladder, unspecified Code(s): C67.9 - Malignant neoplasm of bladder, unspecified Status: Acute Plan Hematuria Bladder spasms Patient presented to the emergency department for evaluation of hematuria with blood clots following cystoscopy day before admission plan to stop CBI today and voiding trial tomorrow Uc neg --holding rivaroxaban --Urology on board, appreciate recommendations --Oxybutynin not prescribed due to hx hallucinations. Spasms have resolved with bladder irrigation Acute Pain --Acetaminophen, Oxycodone, morphine prn ALLYSON --CPAP hs Afib --Continue metoprolol xarelto on hold obesity lifestyle modification HLD statin hyponatremia improved monitor for now Subjective Date/time seen: 09/10/24 12:32 Interval history: per hPi: This is an 84-year-old male with history of bladder cancer status post transurethral section of bladder tumor and BCG treatment, urethral strictures, prostate cancer diagnosed in June 2021 status post radiation, chronic kidney disease stage IIIA, atrial fibrillation on chronic anticoagulation, hypertension, hyperlipidemia, permanent place maker implantation, obstructive sleep apnea on CPAP, and hyperlipidemia presented to the emergency department via private vehicle with complaints of blood in urine. Patient recently was admitted to hospital on 09/02/24 with same problem and was treated with CBI.Urine culture came back as no growth. CBI was able to be discontinued on 09/04/2024. Patient's urine stayed clear afterwards and he had a voiding trial done on day of discharge 09/05/2024. he followed with urologist yesterday. Patient had cystoscopy yesterday and developed abd /bladder spasm presented to er for further management. In the er urology team was consulted started on DBI and initially ahd hematuria and some clots but later was clear. urology team was consulted. 09/10/24 Patient was seen and examined at bedside. he is feeling better. denies any chest pain, SOb, abd pain, N/V. his abd improving , no more hematuria. urology team on board, plan to stop CBI today and voiding trial tomorrow Review of Systems Review of Systems: As reviewed above in HPI All systems reviewed & are unremarkable except as noted in HPI and below Exam Narrative: GENERAL: [Well-appearing, well-nourished, and in no acute distress.] HEAD: [Normocephalic, atraumatic.] EYES: [PERRLA and EOMI.] ENT: Nares clear, no rhinorrhea or epistaxis. Mucous membranes moist. NECK: Supple. CHEST: [Clear to auscultation. No respiratory distress.] HEART: [Regular rate and rhythm]. No murmur heard. [Normal peripheral pulses.] ABDOMEN: [Soft, nondistended], [nontender], [No rigidity or guarding] EXTREMITIES: Normal range of motion. [No edema.] SKIN: Warm, dry, no rash. NEURO: [No focal deficits]. Alert and oriented [x3.] PSYCH: [Normal mood and affect.] Const: General: comfortable and no acute distress Eyes: General: appearance normal, both eyes and all related structures Resp: Effort & Inspection: normal respiratory effort Urinary Catheter: Urinary Catheter: patent and draining and urine red Skin: General skin exam: normal color Neuro: Speech: normal speech Psych: Speech and movement: Normal speech and movement present Objective Data Vital Signs Vital Signs: Vital Signs - 24 hr 09/09/24 13:57 09/09/24 20:00 09/09/24 20:20 Temperature 97.0 F L 97.7 F Pulse Rate 80 96 Respiratory Rate 18 18 Blood Pressure 123/78 102/74 Pulse Oximetry 96 96 Oxygen Delivery Room Air 09/09/24 20:58 09/09/24 21:05 09/10/24 04:37 Temperature 98.4 F Pulse Rate 75 77 Respiratory Rate 17 Blood Pressure 137/77 Pulse Oximetry 97 95 Oxygen Delivery Room Air 09/10/24 07:55 09/10/24 09:25 Temperature Pulse Rate 77 Respiratory Rate Blood Pressure Pulse Oximetry Oxygen Delivery Room Air Intake/Output Intake/Output: Intake & Output 09/07/24 09/08/24 09/09/24 09/10/24 23:59 23:59 23:59 23:59 Intake Total 8338 1690 490 Output Total 8085 9224 900 Balance -7926 -1725 -611 Meds/Results Medications: Active Medications Generic Name Dose Route Start Last Admin Trade Name Fred PRN Reason Stop Dose Admin Acetaminophen 650 mg 09/08/24 07:19 Acetaminophen 325 Mg Tablet PO Q4H PRN Mild Pain (1-3) or Fever Lamotrigine 50 mg 09/08/24 12:25 09/10/24 09:25 Lamotrigine 50 Mg Tablet PO 50 mg Q12HR PRAVEENA Administration Magnesium Oxide 400 mg 09/09/24 09:00 09/10/24 09:25 Magnesium Oxide 400 Mg Tablet PO 400 mg DAILY PRAVEENA Administration Metoprolol Succinate 25 mg 09/08/24 12:25 09/10/24 09:25 Metoprolol Succinate Ext Rel 25 Mg Tabcr PO 25 mg Q12HR PRAVEENA Administration Ondansetron HCl 4 mg 09/08/24 07:19 Ondansetron Inj 4 Mg/2 Ml Vial IV PUSH Q4H PRN Nausea Rosuvastatin Calcium 40 mg 09/08/24 21:00 09/09/24 21:06 Rosuvastatin 20 Mg Tablet PO 40 mg HS PRAVEENA Administration Radiology Results: ITS Impressions Abdomen/Pelvis CT 09/08/24 06:42 Impression: Suspected cystitis despite decompression with Gil catheter. Evaluation is suboptimal though, and other urinary bladder lesions cannot be excluded. Correlate clinically and with urinalysis. Moderate bilateral fat-containing hernias. Labs Labs: Laboratory Results - last 24 hr 09/10/24 04:58 WBC 7.5 RBC 4.35 L Hgb 12.5 L Hct 39.2 L MCV 90.1 MCH 28.7 MCHC 31.9 L RDW 13.5 Plt Count 319 MPV 7.8 Sodium 138 Potassium 4.4 Chloride 104 Carbon Dioxide 26 Anion Gap 8 BUN 18 Creatinine 1.21 Estim Creat Clear Calc 45 Estimated GFR 57 L Glucose 113 H Calcium 9.3
[2024-09-10 14:15] VITALS: BP 109/57; PULSE 86; RESP 18; TEMP 36.4; O2SAT 97
[2024-09-10 18:27] VITALS: BP 103/48; PULSE 78; RESP 18; TEMP 36.2; O2SAT 97
[2024-09-10] MEDS: ROSUVASTATIN 20 MG TABLET 40 MG PO (20:05)
[2024-09-10 20:06] VITALS: PULSE 81
[2024-09-10 20:36] VITALS: BP 110/62; PULSE 83; RESP 18; TEMP 36.2; O2SAT 97
[2024-09-11] VITALS (8 sets, daily range): BP systolic 102–134; BP diastolic 55–69; PULSE 77–90; RESP 16–18; TEMP 36.3–36.4; O2SAT 96–97
[2024-09-11 04:54] LABS: Hematocrit 38.5 % (42.0-52.0); Hemoglobin 12.2 g/dL (14.0-18.0); Mean Corpuscular HGB Conc 31.7 g/dl (32-36); Mean Corpuscular Hemoglobin 28.5 pg (26-34); Mean Corpuscular Volume 90.0 fl (80-100); Platelet Count Result 362 k/mm3 (150-375); Red Blood Count 4.28 M/mm3 (4.6-6.20); White Blood Count 8.3 K/mm3 (4.5-10.0)
[2024-09-11 05:18] LABS: Anion Gap 7 mmol/L (4-12); Blood Urea Nitrogen 19 mg/dL (9-20); Calcium 9.2 mg/dL (8.4-10.2); Carbon Dioxide 26 mmol/L (22-30); Chloride 100 mmol/L (98-107); Estimated CRCL calculation 46 ml/min; Estimated Glomerular Filt Rate 59; Glucose 110 mg/dL (65-110); Potassium 4.1 mmol/L (3.4-5.0); Sodium 133 mmol/L (137-145)
--- NOTE | 2024-09-11 07:32 | P.PNUR_ITS ---
Progress Note: A&P Assessment and Plan (1) Gross hematuria: Code(s): R31.0 - Gross hematuria Status: Acute Assessment and Plan: * Urine remains clear off CBI for 24 hours * Gil out for voiding trial today * Discharge later this morning or this afternoon if voiding well. * Follow-up with Dr. ASHLY lopez is in 1-2 weeks Subjective Subjective Date/Time Seen: 09/11/24 07:32 Interval history: Comfortable, urine clear off CBI since yesterday Review of Systems Cardiovascular: Cardiovascular: Denies chest pain, Denies lightheadedness, Denies palpitations and Denies dyspnea Respiratory: Respiratory: Denies dyspnea Gastrointestinal: Gastrointestinal: Denies diarrhea, Denies nausea and Denies vomiting Genitourinary: Genitourinary: Denies hematuria and Denies dysuria Endocrine: Endocrine: Denies palpitations Exam Const: General: no acute distress Resp: Effort & Inspection: normal respiratory effort GI: Inspection: non-distended GI Palp: No abdominal tenderness and No Guarding due to palpation present (GI) Auscultation: normal bowel sounds Urinary Catheter: Urinary Catheter: patent and draining and urine clear Objective Data Vital Signs Vital Signs: Vital Signs - 24 hr 09/10/24 07:55 09/10/24 09:25 09/10/24 14:15 Temperature 97.5 F L Pulse Rate 77 86 Respiratory Rate 18 Blood Pressure 109/57 L Pulse Oximetry 97 Oxygen Delivery Room Air 09/10/24 18:27 09/10/24 20:00 09/10/24 20:06 Temperature 97.1 F L Pulse Rate 78 81 Respiratory Rate 18 Blood Pressure 103/48 L Pulse Oximetry 97 Oxygen Delivery Room Air 09/10/24 20:36 09/10/24 22:45 09/11/24 05:36 Temperature 97.1 F L 97.3 F L Pulse Rate 83 81 Respiratory Rate 18 16 Blood Pressure 110/62 102/62 Pulse Oximetry 97 96 Oxygen Delivery Autopap Intake/Output Intake/Output: Intake & Output 09/08/24 09/09/24 09/10/24 09/11/24 23:59 23:59 23:59 23:59 Intake Total 1080 1690 1570 450 Output Total 2848 0333 1906 1800 Nmqheva -9807 -3989 -310 -2801 Meds/Results Medications: Active Medications Generic Name Dose Route Start Last Admin Trade Name Freq PRN Reason Stop Dose Admin Acetaminophen 650 mg 09/08/24 07:19 Acetaminophen 325 Mg Tablet PO Q4H PRN Mild Pain (1-3) or Fever Lamotrigine 50 mg 09/08/24 12:25 09/10/24 20:06 Lamotrigine 50 Mg Tablet PO 50 mg Q12HR PRAVEENA Administration Magnesium Oxide 400 mg 09/09/24 09:00 09/10/24 09:25 Magnesium Oxide 400 Mg Tablet PO 400 mg DAILY PRAVEENA Administration Metoprolol Succinate 25 mg 09/08/24 12:25 09/10/24 20:06 Metoprolol Succinate Ext Rel 25 Mg Tabcr PO 25 mg Q12HR PRAVEENA Administration Ondansetron HCl 4 mg 09/08/24 07:19 Ondansetron Inj 4 Mg/2 Ml Vial IV PUSH Q4H PRN Nausea Rosuvastatin Calcium 40 mg 09/08/24 21:00 09/10/24 20:05 Rosuvastatin 20 Mg Tablet PO 40 mg HS PRAVEENA Administration Radiology Results: ITS Impressions Abdomen/Pelvis CT 09/08/24 06:42 Impression: Suspected cystitis despite decompression with Gil catheter. Evaluation is suboptimal though, and other urinary bladder lesions cannot be excluded. Correlate clinically and with urinalysis. Moderate bilateral fat-containing hernias. Labs Labs: Laboratory Results - last 24 hr 09/11/24 04:28 WBC 8.3 RBC 4.28 L Hgb 12.2 L Hct 38.5 L MCV 90.0 MCH 28.5 MCHC 31.7 L RDW 13.4 Plt Count 362 MPV 8.1 Sodium 133 L Potassium 4.1 Chloride 100 Carbon Dioxide 26 Anion Gap 7 BUN 19 Creatinine 1.18 Estim Creat Clear Calc 46 Estimated GFR 59 Glucose 110 Calcium 9.2
[2024-09-11] MEDS: METOPROLOL SUCCINATE EXT REL 25 MG TABCR PO ×2 (08:54→20:19)
[2024-09-11] MEDS: MAGNESIUM OXIDE 400 MG TABLET PO (08:54)
[2024-09-11] MEDS: lamoTRIgine 50 MG TABLET PO ×2 (08:54→20:19)
--- NOTE | 2024-09-11 10:48 | PC.NURSE ---
called to pt's room, he is stating he is getting uncomfortable in his bladder, bladder scan shows 440ml, Dr Bruce on rounds at this time and he replaced aragon catheter
--- NOTE | 2024-09-11 11:45 | P.PNIM_ITS ---
Progress Note: A&P Assessment and Plan (1) Acute urinary retention: Code(s): R33.8 - Other retention of urine Status: Acute (2) Hematuria: Code(s): R31.9 - Hematuria, unspecified Status: Acute (3) Bladder cancer: Qualifiers: Bladder location: unspecified site Qualified Code(s): C67.9 - Malignant neoplasm of bladder, unspecified Code(s): C67.9 - Malignant neoplasm of bladder, unspecified Status: Acute Plan Hematuria Bladder spasms Patient presented to the emergency department for evaluation of hematuria with blood clots following cystoscopy day before admission stop CBI failed voiding trial , replace aragon Uc neg --holding rivaroxaban --Urology on board, appreciate recommendations --Oxybutynin not prescribed due to hx hallucinations. Spasms have resolved with bladder irrigation Acute Pain --Acetaminophen, Oxycodone, morphine prn ALLYSON --CPAP hs Afib --Continue metoprolol xarelto on hold obesity lifestyle modification HLD statin hyponatremia 133 monitor for now Subjective Date/time seen: 09/11/24 11:45 Interval history: per hPi: This is an 84-year-old male with history of bladder cancer status post transure thral section of bladder tumor and BCG treatment, urethral strictures, prostate cancer diagnosed in June 2021 status post radiation, chronic kidney disease stage IIIA, atrial fibrillation on chronic anticoagulation, hypertension, hyperlipidemia, permanent place maker implantation, obstructive sleep apnea on CPAP, and hyperlipidemia presented to the emergency department via private vehicle with complaints of blood in urine. Patient recently was admitted to hospital on 09/02/24 with same problem and was treated with CBI.Urine culture came back as no growth. CBI was able to be discontinued on 09/04/2024. Patient's urine stayed clear afterwards and he had a voiding trial done on day of discharge 09/05/2024. he followed with urologist yesterday. Patient had cystoscopy yesterday and developed abd /bladder spasm presented to er for further management. In the er urology team was consulted started on DBI and initially ahd hematuria and some clots but later was clear. urology team was consulted. 09/10/24 his abd improving , no more hematuria. urology team on board, plan to stop CBI today and voiding trial tomorrow 09/11/24 Patient was seen and examined at bedside. he is feeling better. denies any chest pain, SOb, abd pain, N/V. he was unable to urinate. Aragon catheter was replaced. urology team on board. will keep patient overnight. Review of Systems Review of Systems: As reviewed above in HPI All systems reviewed & are unremarkable except as noted in HPI and below Exam Narrative: GENERAL: [Well-appearing, well-nourished, and in no acute distress.] HEAD: [Normocephalic, atraumatic.] EYES: [PERRLA and EOMI.] ENT: Nares clear, no rhinorrhea or epistaxis. Mucous membranes moist. NECK: Supple. CHEST: [Clear to auscultation. No respiratory distress.] HEART: [Regular rate and rhythm]. No murmur heard. [Normal peripheral pulses.] ABDOMEN: [Soft, nondistended], [nontender], [No rigidity or guarding] EXTREMITIES: Normal range of motion. [No edema.] SKIN: Warm, dry, no rash. NEURO: [No focal deficits]. Alert and oriented [x3.] PSYCH: [Normal mood and affect.] Const: General: comfortable and no acute distress Eyes: General: appearance normal, both eyes and all related structures Resp: Effort & Inspection: normal respiratory effort Urinary Catheter: Urinary Catheter: patent and draining and urine red Skin: General skin exam: normal color Neuro: Speech: normal speech Psych: Speech and movement: Normal speech and movement present Objective Data Vital Signs Vital Signs: Vital Signs - 24 hr 09/10/24 14:15 09/10/24 18:27 09/10/24 20:00 Temperature 97.5 F L 97.1 F L Pulse Rate 86 78 Respiratory Rate 18 18 Blood Pressure 109/57 L 103/48 L Pulse Oximetry 97 97 Oxygen Delivery Room Air 09/10/24 20:06 09/10/24 20:36 09/10/24 22:45 Temperature 97.1 F L Pulse Rate 81 83 Respiratory Rate 18 Blood Pressure 110/62 Pulse Oximetry 97 Oxygen Delivery Autopap 09/11/24 05:36 09/11/24 07:35 09/11/24 08:50 Temperature 97.3 F L Pulse Rate 81 90 Respiratory Rate 16 16 Blood Pressure 102/62 134/62 Pulse Oximetry 96 97 Oxygen Delivery Room Air 09/11/24 08:54 Temperature Pulse Rate 90 Respiratory Rate Blood Pressure Pulse Oximetry Oxygen Delivery Intake/Output Intake/Output: Intake & Output 09/08/24 09/09/24 09/10/24 09/11/24 23:59 23:59 23:59 23:59 Intake Total 1080 1690 1570 570 Output Total 8215 7804 1900 1800 Balance -6395 -4895 -777 -1140 Meds/Results Medications: Active Medications Generic Name Dose Route Start Last Admin Trade Name Freq PRN Reason Stop Dose Admin Acetaminophen 650 mg 09/08/24 07:19 Acetaminophen 325 Mg Tablet PO Q4H PRN Mild Pain (1-3) or Fever Lamotrigine 50 mg 09/08/24 12:25 09/11/24 08:54 Lamotrigine 50 Mg Tablet PO 50 mg Q12HR PRAVEENA Administration Magnesium Oxide 400 mg 09/09/24 09:00 09/11/24 08:54 Magnesium Oxide 400 Mg Tablet PO 400 mg DAILY PRAVEENA Administration Metoprolol Succinate 25 mg 09/08/24 12:25 09/11/24 08:54 Metoprolol Succinate Ext Rel 25 Mg Tabcr PO 25 mg Q12HR PRAVEENA Administration Ondansetron HCl 4 mg 09/08/24 07:19 Ondansetron Inj 4 Mg/2 Ml Vial IV PUSH Q4H PRN Nausea Rosuvastatin Calcium 40 mg 09/08/24 21:00 09/10/24 20:05 Rosuvastatin 20 Mg Tablet PO 40 mg HS PRAVEENA Administration Radiology Results: ITS Impressions Abdomen/Pelvis CT 09/08/24 06:42 Impression: Suspected cystitis despite decompression with Aragon catheter. Evaluation is suboptimal though, and other urinary bladder lesions cannot be excluded. Correlate clinically and with urinalysis. Moderate bilateral fat-containing hernias. Labs Labs: Laboratory Results - last 24 hr 09/11/24 04:28 WBC 8.3 RBC 4.28 L Hgb 12.2 L Hct 38.5 L MCV 90.0 MCH 28.5 MCHC 31.7 L RDW 13.4 Plt Count 362 MPV 8.1 Sodium 133 L Potassium 4.1 Chloride 100 Carbon Dioxide 26 Anion Gap 7 BUN 19 Creatinine 1.18 Estim Creat Clear Calc 46 Estimated GFR 59 Glucose 110 Calcium 9.2
[2024-09-11] MEDS: ROSUVASTATIN 20 MG TABLET 40 MG PO (20:19)
[2024-09-12 05:17] VITALS: BP 98/65; PULSE 72; RESP 18; TEMP 36.4; O2SAT 98
[2024-09-12 05:21] LABS: Hematocrit 39.5 % (42.0-52.0); Hemoglobin 12.7 g/dL (14.0-18.0); Mean Corpuscular HGB Conc 32.2 g/dl (32-36); Mean Corpuscular Hemoglobin 28.8 pg (26-34); Mean Corpuscular Volume 89.6 fl (80-100); Platelet Count Result 386 k/mm3 (150-375); Red Blood Count 4.41 M/mm3 (4.6-6.20); White Blood Count 8.4 K/mm3 (4.5-10.0)
[2024-09-12 05:47] LABS: Anion Gap 7 mmol/L (4-12); Blood Urea Nitrogen 18 mg/dL (9-20); Calcium 9.2 mg/dL (8.4-10.2); Carbon Dioxide 26 mmol/L (22-30); Chloride 100 mmol/L (98-107); Estimated CRCL calculation 46 ml/min; Estimated Glomerular Filt Rate 59; Glucose 107 mg/dL (65-110); Potassium 4.1 mmol/L (3.4-5.0); Sodium 133 mmol/L (137-145)
[2024-09-12 07:39] VITALS: BP 113/61; PULSE 83; RESP 17; TEMP 35.9; O2SAT 97
--- NOTE | 2024-09-12 08:12 | WPDUROPN2 ---
Progress Note: A&P Assessment and Plan (1) Hematuria: Code(s): R31.9 - Hematuria, unspecified Status: Acute Assessment and Plan: Urine fairly clear off CBI. Will discharge home with Gil catheter and have it removed next Thursday morning for voiding trial (2) Acute urinary retention: Code(s): R33.8 - Other retention of urine Status: Acute Assessment and Plan: See above. Will add tamsulosin Subjective Subjective Date/Time Seen: 09/12/24 08:12 Interval history: Doing well at this time. Urine fairly clear off CBI now for 24-48 hours. Failed voiding trial yesterday. We have decided to discharge home with Gil catheter and remove it in a week's time. Will also start tamsulosin. Review of Systems Review of Systems: All systems reviewed & are unremarkable except as noted in HPI and below Exam Const: General: cooperative and comfortable Resp: Effort & Inspection: normal respiratory effort Cardio: Rate: regular rate Rhythm: regular rhythm Urinary Catheter: Urinary Catheter: patent and draining and urine clear Objective Data Vital Signs Vital Signs: Vital Signs - 24 hr 09/11/24 08:50 09/11/24 08:54 09/11/24 14:00 Temperature 36.4 C L Pulse Rate 90 90 77 Respiratory Rate 16 16 Blood Pressure 134/62 122/69 Pulse Oximetry 97 97 Oxygen Delivery 09/11/24 20:11 09/11/24 20:19 09/11/24 20:25 Temperature 36.3 C L Pulse Rate 79 86 86 Respiratory Rate 18 18 Blood Pressure 112/55 L Pulse Oximetry 97 97 Oxygen Delivery Room Air 09/11/24 21:06 09/12/24 05:17 09/12/24 07:39 Temperature 36.4 C 35.9 C L Pulse Rate 72 83 Respiratory Rate 18 17 Blood Pressure 98/65 L 113/61 Pulse Oximetry 96 98 97 Oxygen Delivery Room Air Intake/Output Intake/Output: Intake & Output 09/09/24 09/10/24 09/11/24 09/12/24 23:59 23:59 23:59 23:59 Intake Total 1690 1570 1050 600 Output Total 3175 1900 3050 2400 [facility] -[phone] Meds/Results Medications: Active Medications Generic Name Dose Route Start Last Admin Trade Name Freq PRN Reason Stop Dose Admin Acetaminophen 650 mg 09/08/24 07:19 Acetaminophen 325 Mg Tablet PO Q4H PRN Mild Pain (1-3) or Fever Lamotrigine 50 mg 09/08/24 12:25 09/11/24 20:19 Lamotrigine 50 Mg Tablet PO 50 mg Q12HR PRAVEENA Administration Magnesium Oxide 400 mg 09/09/24 09:00 09/11/24 08:54 Magnesium Oxide 400 Mg Tablet PO 400 mg DAILY PRAVEENA Administration Metoprolol Succinate 25 mg 09/08/24 12:25 09/11/24 20:19 Metoprolol Succinate Ext Rel 25 Mg Tabcr PO 25 mg Q12HR PRAVEENA Administration Ondansetron HCl 4 mg 09/08/24 07:19 Ondansetron Inj 4 Mg/2 Ml Vial IV PUSH Q4H PRN Nausea Rosuvastatin Calcium 40 mg 09/08/24 21:00 09/11/24 20:19 Rosuvastatin 20 Mg Tablet PO 40 mg HS PRAVEENA Administration Radiology Results: ITS Impressions Abdomen/Pelvis CT 09/08/24 06:42 Impression: Suspected cystitis despite decompression with Gil catheter. Evaluation is suboptimal though, and other urinary bladder lesions cannot be excluded. Correlate clinically and with urinalysis. Moderate bilateral fat-containing hernias. Labs Labs: Laboratory Results - last 24 hr 09/12/24 04:32 WBC 8.4 RBC 4.41 L Hgb 12.7 L Hct 39.5 L MCV 89.6 MCH 28.8 MCHC 32.2 RDW 13.2 Plt Count 386 H MPV 8.1 Sodium 133 L Potassium 4.1 Chloride 100 Carbon Dioxide 26 Anion Gap 7 BUN 18 Creatinine 1.19 Estim Creat Clear Calc 46 Estimated GFR 59 Glucose 107 Calcium 9.2
--- NOTE | 2024-09-12 08:18 | PM.DS ---
DS: Admitting Diagnosis Discharge Date 09-12-24 Admitting Diagnosis Gross hematuria DS: Discharge Diagnosis Discharge Diagnosis (1) Gross hematuria: Code(s): R31.0 - Gross hematuria Status: Acute Assessment and Plan: Doing well at this time. Discharge home with Gil catheter. Voiding trial in 1 week. 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 (2) Acute urinary retention: Code(s): R33.8 - Other retention of urine Status: Acute Assessment and Plan: See above. Will add tamsulosin. DS: Summary Hospital Course Reason for hospitalization: Gross hematuria Hospital Course: Norman was admitted with gross hematuria. Continuous bladder irrigation was initiated. It took a while for things to clear but eventually it did. He then had a voiding trial which he failed. At the time of discharge urine is clear with indwelling Gil. Plan is to discharge home with Gil catheter for a week and attempt another voiding trial next Thursday early a.m.. Tamsulosin will be initiated. 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 Time Spent with Patient Time attestation: Total time spent providing and/or coordinating discharge services: DS: Data Data Completed and Pending Labs on day of discharge: Labs from last 24 hours 09/12/24 04:32 WBC 8.4 RBC 4.41 L Hgb 12.7 L Hct 39.5 L MCV 89.6 MCH 28.8 MCHC 32.2 RDW 13.2 Plt Count 386 H MPV 8.1 Sodium 133 L Potassium 4.1 Chloride 100 Carbon Dioxide 26 Anion Gap 7 BUN 18 Creatinine 1.19 Estim Creat Clear Calc 46 Estimated GFR 59 Glucose 107 Calcium 9.2 Discharge Plan Discharge Attending physician on discharge: Anirudh Herbert Consulting providers: Levi Bruce Anoushiravan Discharging Clinician: Anirudh Herbert Anticipated Discharge Date/Time: 09/12/24 08:14 Patient Disposition: Home Activity: may shower Diet: as tolerated Patient Instructions: Antibiotic Form, Rivaroxaban (By mouth) Patient Language: Mosotho Stand Alone Forms: General Discharge Information Follow-up/Referrals: Anirudh Herbert MD [Physician] - Discharge Medications: New tamsulosin 0.4 mg capsule 0.4 mg PO HS Qty: 30 6RF Continued Aimovig Autoinjector 140 mg/mL auto-injector 140 mg subcut MONTHLY Rx Instructions: TAKES AROUND THE 1ST PART OF THE MONTH metoprolol succinate 50 mg tablet extended release 24 hr 25 mg PO Q12H magnesium oxide 500 mg Capsule 500 mg PO DAILY nortriptyline 25 mg capsule 50 mg PO Q12H lamotrigine 25 mg tablet 50 mg PO Q12H metoprolol succinate 25 mg tablet extended release 24 hr 25 mg PO Q12H rosuvastatin 40 mg tablet 40 mg PO HS Held Xarelto 20 mg tablet 20 mg PO QPM Hold Instructions: Resume on 09/19/24. Date of admission: 09/08/24 07:19 Primary Care Provider: Osmani Zamorano Admitting Provider: Joan Avila Attending physician on admission: Joan Avila Condition: Stable
[2024-09-12 08:36] VITALS: PULSE 83
[2024-09-12] MEDS: METOPROLOL SUCCINATE EXT REL 25 MG TABCR PO (08:36)
[2024-09-12] MEDS: MAGNESIUM OXIDE 400 MG TABLET PO (08:36)
[2024-09-12] MEDS: lamoTRIgine 50 MG TABLET PO (08:36)
--- NOTE | 2024-09-12 08:50 | P.DS_ITS ---
DS: Admitting Diagnosis Discharge Date 09/12/24 Admitting Diagnosis Bladder spasm, Hematuria DS: Discharge Diagnosis Discharge Diagnosis (1) Acute urinary retention: Code(s): R33.8 - Other retention of urine Status: Acute (2) Hematuria: Code(s): R31.9 - Hematuria, unspecified Status: Acute (3) Bladder cancer: Qualifiers: Bladder location: unspecified site Qualified Code(s): C67.9 - Malignant neoplasm of bladder, unspecified Code(s): C67.9 - Malignant neoplasm of bladder, unspecified Status: Acute Plan Hematuria Bladder spasms Patient presented to the emergency department for evaluation of hematuria with blood clots following cystoscopy day before admission stop CBI failed voiding trial , replace Gil yesterday. follow with urology as outpatient Uc neg --holding rivaroxaban untill follow up as outpatient --Urology on board, appreciate recommendations -Spasms have resolved with bladder irrigation Acute Pain --Acetaminophen, Oxycodone, morphine prn ALLYSON --CPAP hs Afib --Continue metoprolol xarelto on hold obesity lifestyle modification HLD statin hyponatremia 133 monitor for now DS: Summary Hospital Course Reason for hospitalization: Gross hematuria Hospital Course: This is an 84-year-old male with history of bladder cancer status post transurethral section of bladder tumor and BCG treatment, urethral strictures, prostate cancer diagnosed in June 2021 status post radiation, chronic kidney disease stage IIIA, atrial fibrillation on chronic anticoagulation, hypertension, hyperlipidemia, permanent place maker implantation, obstructive sleep apnea on CPAP, and hyperlipidemia presented to the emergency department via private vehicle with complaints of blood in urine. Patient recently was admitted to hospital on 09/02/24 with same problem and was treated with CBI.Urine culture came back as no growth. CBI was able to be discontinued on 09/04/2024. Patient's urine stayed clear afterwards and he had a voiding trial done on day of discharge 09/05/2024. he followed with urologist yesterday. Patient had cystoscopy yesterday and developed abd /bladder spasm presented to er for further management. In the er urology team was consulted started on DBI and initially ahd hematuria and some clots but later was clear. urology team was consulted. 09/10/24 his abd improving , no more hematuria. urology team on board, plan to stop CBI today and voiding trial tomorrow 09/11/24 he was unable to urinate. Gil catheter was replaced. 09/12/24 Patient was seen and examined at bedside. he is feeling better. denies any chest pain, SOb, abd pain, N/V. will discharge patient home, follow with urology for outpatient voiding trial. Status at Discharge Overall status at discharge: patient is progressing back to baseline Time Spent with Patient Time attestation: Total time spent providing and/or coordinating discharge services: Time spent: Greater than 30 minutes Exam Narrative: GENERAL: [Well-appearing, well-nourished, and in no acute distress.] HEAD: [Normocephalic, atraumatic.] EYES: [PERRLA and EOMI.] ENT: Nares clear, no rhinorrhea or epistaxis. Mucous membranes moist. NECK: Supple. CHEST: [Clear to auscultation. No respiratory distress.] HEART: [Regular rate and rhythm]. No murmur heard. [Normal peripheral pulses.] ABDOMEN: [Soft, nondistended], [nontender], [No rigidity or guarding] EXTREMITIES: Normal range of motion. [No edema.] SKIN: Warm, dry, no rash. NEURO: [No focal deficits]. Alert and oriented [x3.] PSYCH: [Normal mood and affect.] Const: General: comfortable and no acute distress Eyes: General: appearance normal, both eyes and all related structures Resp: Effort & Inspection: normal respiratory effort Urinary Catheter: Urinary Catheter: patent and draining and urine red Skin: General skin exam: normal color Neuro: Speech: normal speech Psych: Speech and movement: Normal speech and movement present DS: Data Data Completed and Pending Labs on day of discharge: Labs from last 24 hours 09/12/24 04:32 WBC 8.4 RBC 4.41 L Hgb 12.7 L Hct 39.5 L MCV 89.6 MCH 28.8 MCHC 32.2 RDW 13.2 Plt Count 386 H MPV 8.1 Sodium 133 L Potassium 4.1 Chloride 100 Carbon Dioxide 26 Anion Gap 7 BUN 18 Creatinine 1.19 Estim Creat Clear Calc 46 Estimated GFR 59 Glucose 107 Calcium 9.2 Discharge Plan Discharge Attending physician on discharge: Anirudh Herbert Consulting providers: Levi Bruce; Socorro Buenrostro Discharging Clinician: Anirudh Herbert Anticipated Discharge Date/Time: 09/12/24 08:14 Patient Disposition: Home Activity: may shower Diet: as tolerated Discharge Instructions: Follow with PCP in one week. Follow with urology clinic as scheduled. hold of taking xarelto for one week until your appointment with Urology clinic. Patient Instructions: Antibiotic Form, Rivaroxaban (By mouth) Patient Language: Portuguese Stand Alone Forms: General Discharge Information Follow-up/Referrals: Anirudh Herbert MD [Physician] - Osmani Zamorano MD [Primary Care Provider] - 1 Week Discharge Medications: New tamsulosin 0.4 mg capsule 0.4 mg PO HS Qty: 30 6RF Continued Aimovig Autoinjector 140 mg/mL auto-injector 140 mg subcut MONTHLY Rx Instructions: TAKES AROUND THE 1ST PART OF THE MONTH metoprolol succinate 50 mg tablet extended release 24 hr 25 mg PO Q12H magnesium oxide 500 mg Capsule 500 mg PO DAILY nortriptyline 25 mg capsule 50 mg PO Q12H lamotrigine 25 mg tablet 50 mg PO Q12H metoprolol succinate 25 mg tablet extended release 24 hr 25 mg PO Q12H rosuvastatin 40 mg tablet 40 mg PO HS Held Xarelto 20 mg tablet 20 mg PO QPM Hold Instructions: Resume on 09/19/24. Date of admission: 09/08/24 07:19 Primary Care Provider: Osmani Zamorano Admitting Provider: Joan Avila Attending physician on admission: Joan Avila Condition: Stable
== END 2024-09-12 09:58 | disposition home or self-care (01) | DRG 696 ==
LOC: ANHED 07:24 → ANH2MED 07:52
PROVIDERS: Internal Medicine; Admitting Provider Family Medicine; Emergency Provider Student in an Organized Health Care Education/Training Program; PCP Family Medicine; Visit Provider Urology
DX: R31.0 Gross hematuria (principal); E87.1 Hypo-osmolality and hyponatremia; C67.9 Malignant neoplasm of bladder, unspecified; R33.8 Other retention of urine; G47.33 Obstructive sleep apnea (adult) (pediatric); I48.0 Paroxysmal atrial fibrillation; I12.9 Hypertensive chronic kidney disease with stage 1 through stage 4 chronic kidney disease, or unspecified chronic kidney disease; N18.31 Chronic kidney disease, stage 3a; R73.03 Prediabetes; E78.2 Mixed hyperlipidemia; D63.8 Anemia in other chronic diseases classified elsewhere; R52 Pain, unspecified; E66.9 Obesity, unspecified; Z68.30 Body mass index [BMI] 30.0-30.9, adult; Z79.01 Long term (current) use of anticoagulants; Z79.899 Other long term (current) drug therapy; Z87.891 Personal history of nicotine dependence; Z85.46 Personal history of malignant neoplasm of prostate; Z92.3 Personal history of irradiation; Z99.89 Dependence on other enabling machines and devices; Z95.0 Presence of cardiac pacemaker
CPT/HCPCS: 36415; 74177; 80048; 80053; 81001; 85025; 85027; 87086; 96365; 96375; 99285; A9270; J0696; J2270; Q9967

== ENCOUNTER 2024-10-12 10:30 | Outpatient (CLI) | payer MEDICARE, OTHER, SELFPAY ==
--- NOTE | 2024-10-12 10:30 | ECG_ITS ---
Test Date: 2024-10-12 10:45:04 Measurements Intervals [place] Rate: 86 P: 0 IA: 0 QRS: -66 QRSD: 151 T: 31 QT: 376 QTc: 450 Interpretive Statements ATRIAL FIBRILLATION RIGHT BUNDLE BRANCH BLOCK LEFT ANTERIOR FASCICULAR BLOCK BASELINE ARTIFACT- I, II, III, AVR, AVL ,AVF, V1-V6 ABNORMAL ECG No previous ECG available for comparison Electronically Signed On 10-12-2024 11:14:13 CDT by Chun Alejo D.O.
--- OUTSIDE RECORDS SUMMARY | 2024-10-12 11:06 | XMS_ITS | Continuity of Care Document ---
Author Name [facility] Organization [facility] Care Team Providers Care Innovation Analyst Name Role Phone [facility] Unavailable Unavailable Medications Combined list of outpatient [...] ory Pharmac y nortriptyli ne 10 mg capsule = 1 cap(s), Oral, nightly, # 30 EA, 3 total refill(s ), Soft Stop Oral (given by mouth) Ordered 5 2024 30.0 Ambulat ory Pharmac y nortriptyli ne 10 [...] # 90 EA, 3 total refill(s ), Soft Stop Ordered 5 2024 90.0 Ambulat ory Pharmac y rivaroxaban 20 mg [...] Site Reaction Lot Number CVX Code Drug Flake Cutter Operator Status Comments Source COVID-19, mRNA, LNP-S, PF, 100 mcg or 50 mcg dose 2021 GLEN[employer] (MOD) Not Given COVID-19, mRNA, LNP-S, PF, 100 mcg or 50 mcg dose DoD COVID-19, mRNA, LNP-S, PF, 100 mcg or 50 mcg dose 2020 KRISTA [employer] (MOD) Not Given COVID-19, mRNA, LNP-S, [...] Pharmac y tetanus-dipht h toxoids (Td) adult/adol [id number] 09 [employer] [facility] [address] complet ed tetanus-d iphth toxoids (Td) adult/ado l 06/20/98 Given Ambulat ory Pharmac y tetanus and diphtheria toxoids, adsorbed, preservative free, for adult use (2 Lf of tetanus toxoid and 2 Lf of diphtheria toxoid) 1 1998 Unknown, Provider [id number] 09 [facility] ([facility] complet ed tetanus and diphtheri a toxoids, adsorbed, preservat fabienne free, for adult use (2 Lf of tetanus toxoid and 2 Lf of diphtheri a toxoid) [facility] hepatitis A vaccine, adult dosage 1 1998 Unknown, Provider [id number] [employer] (MSD) complet ed hepatitis A vaccine, adult dosage DoD poliovirus vaccine, live, oral 1971 02 complet ed polioviru s vaccine, live, oral 09/15/71 Given Ambulat ory Pharmac y trivalent poliovirus vaccine, live, oral 1 1971 Unknown, Provider 02 () complet ed trivalent polioviru s vaccine, live, oral DoD Encounters Combined list of: 1) Encounters from [facility] facilities going backup to the last 18 months, not all [place] inpatient encounters are included; 2) Encounters from the [facility] facilities going backup to 280 months. Location Location Details Encounter Type Encounter Number Reason For Visit Attending Provider ADM Date DC Date Status Disposition Source [facility] Outpatient Encounter [id number] 09/23 [facility] Outpatient Encounter [id number] 09/23 [facility] Outpatient Encounter [id number] 10/05 [facility] Procedures Combined list of: 1) Procedures from [facility] facilities going back up to thelast 18 months, not all [place] non-surgical procedures are included; 2) All procedures from the [facility] facilities. Procedure Procedure Type Code Date Perfomer Comments Sourc e No data available for this section Ambulatory P harmacy Social History Combined list of available smoking, tobacco, and other social history from [facility]. Social History Type Response Date Comment Sourc e This section is an empty social history section. DoD Assessment and Plan Combined list of future care activities from [facility] facilities (e.g., assessment and plan notes, appointments, orders, and referrals). Additional future care activities may be listed in the Plan of Care section. Result Assessment and Plan Date Source Assessment and Plan No data available for this section 10/12/2024 Ambulatory Pharmacy Plan of Care List of future care activities from [facility] of [facility] facilities. Additional future care activities may be listed in the Assessment and Plan section. Date/Time Care Activity Care Activity Detail Sylviai ty 10/31/2024 AMBULATORY - MEDICINE AM[facility]ULATORY - [facility] Functional Status Combined list of recent functional and cognitive assessments recorded at [facility] Functional [place] Measurement (FIM) Scale: 1 = Total Assistance (Subject = 0% +), 2 = Maximal Assistance (Subject = 25% +), 3 = Moderate Assistance (Subject = 50% +), 4 = Minimal Assistance (Subject = 75% +), 5 = Supervision, 6 = Modified [place] (Device), 7 = Complete [place] (Timely, Safely). Assessment Date/Time Source Assessment Type Assessment Skill Assessment Score Assessment Details No data available for this section
--- OUTSIDE RECORDS SUMMARY | 2024-10-12 11:07 | XMS_ITS | Clinical Summary ---
Author Organization [facility] [address] [place] [id number] Care Team Providers Care Pipefitter Welder Name Role Phone Osmani Zamorano MD Primary Care Provider Osmani Zamorano MD Unavailable Referral, Self Unavailable Unavailable YaakovchBlue MD Unavailable [phone] Allergies No known active allergies Medications rivaroxaban [...] 08/20/2020 Assessment & Plan (01/05/2024 3:19 PM VP SOFTWARE): Norman has a longstanding history of vestibular [...] is consulting with specialists Dr. Harden in [facility] Plan: 1. Headache diary 2. Preventative: [...] months Assessment & Plan (04/09/2022 11:32 AM VP SOFTWARE): Norman presents today with symptoms consistent with [...] glaucoma. I recommended he check with his burglar alarm inspector regarding the possibility of taking a calcium channel jess. This may be beneficial. Alternatively, we may consider a medication like Aimovig. He is going to contact me after he talks to his burglar alarm inspector and I will write a prescription accordingly. [...] today. Assessment & Plan (04/01/2018 8:30 AM VP SOFTWARE): By CD asymmetry. Does have lens rise [...] fall. Assessment & Plan (04/09/2022 11:33 AM VP SOFTWARE): Has ongoing balance concerns secondary to his [...] Description 07/25/2024 10:30 AM CDT Office Visit [facility] Medicine Pulmonary [address] [place] [address] Meenakshi Navarrete MD Obstructive sleep [...] on file Legal Sex Male 2:00 AM VP SOFTWARE Gender Identity Male 12/19/2019 1:16 PM CDT [...] Pneumococcal vaccine 65+ (2 of 2 - PCV20 or PCV21) 07/13/2015 07/12/2014 Influenza Vaccine (#1) 2024 8, 01/12/2017, 01/09/2016 Fall Risk Assessment 11/26/2024 11/27/2023 Medical Devices Implanted Type Area Traffic Rate Analyst Device Identifier Shelf Expiration Date Model / Serial / Lot Pacemaker Left: Chest Wall Insurance MEDICARE [employer] [facility], [facility]1983 MEDICARE SUPPLEMENT INSURANCE MEDICARE FOR LIFE [facility]–[address] [place] [address] FOR LIFE FOR[facility], [facility]–1983 MEDICARE SUPPLEMENT INSURANCE MEDICARE Advance Directives For more information, please contact: [phone] * Full Code (Latest Code Status on File) Date Activated Date Inactivated Comments 01/30/2018 10:14 PM 01/31/2018 3:52 PM Care Teams Pipefitter Welder Relationship Specialty Start Date End Date Osmani Zamorano MD [address] [place] [address] PCP - General 12/07/19 Osmani Zamorano MD [address] [place] [address] 12/07/19 Referral, Self Referring Physician 03/09/18 Blue Pacheco MD [address] [facility], [address] [address] Surgeon Ophthalmology 11/27/23
--- OUTSIDE RECORDS SUMMARY | 2024-10-12 11:07 | XMS_ITS | Clinical Summary ---
Author Organization [facility] Address [facility] [place] [address] Care Team Providers Care Marketing Analytics Lead Name Role Phone Osmani Zamorano MD Primary Care Provider [phone] Allergies No known active allergies Medications HYDROcodone-acet [...] pacemaker in situ 05/26/2021 Paroxysmal atrial fibrillation ([facility]) 04/11/2021 Meniere's disease, cochleovestibular, active, le [...] Comments Blood Pressure 165/60 12/30/2022 1:52 AM MEDICAID BUSINESS ANALYST Pulse 71 12/30/2022 1:52 AM MEDICAID BUSINESS ANALYST Temperature 36.3 C (97.4 F) 12/30/2022 1:52 AM MEDICAID BUSINESS ANALYST Respiratory Rate 18 12/30/2022 1:52 AM MEDICAID BUSINESS ANALYST Oxygen Saturation 97% 12/30/2022 1:52 AM MEDICAID BUSINESS ANALYST Inhaled Oxygen Concentration - - Weight 88.5 kg (195 lb) 12/30/2022 1:52 AM MEDICAID BUSINESS ANALYST Height 170.2 cm (5' 7) 12/30/2022 1:52 AM MEDICAID BUSINESS ANALYST Body Mass Index 30.54 12/30/2022 1:52 AM MEDICAID BUSINESS ANALYST Plan of Treatment Health Maintenance Due Date [...] age to complete this topic Insurance MEDICARE [facility] [employer] [facility] Care Teams Marketing Analytics Lead Relationship Specialty Start Date End Date Osmani Zamorano MD [address] [place] [id number] PCP - General FAMILY PRACTICE 08/21/21
--- OUTSIDE RECORDS SUMMARY | 2024-10-12 11:07 | XMS_ITS | Encounter Summary ---
Author Organization [facility] Address [address] [place] [address] Phone Care Team Providers Care Circulation Assistant Name Role Phone Osmani Zamorano MD Primary Care Provider [phone] Osmani Zamorano MD Unavailable [phone] Referral, Self Unavailable Unavailable YaakovchBlue MD Unavailable [phone] Encounter Details Date Type Department Care Team [...] on file Legal Sex Male 2:00 AM HEALTH EVALUATOR Gender Identity Male 12/19/2019 1:16 PM CDT [...] on filedocumented in this encounter Care Teams Circulation Assistant Relationship Specialty Start Date End Date Osmani Zamorano MD [address] [place] [address] PCP - General 12/07/19 Osmani Zamorano MD [address] [place] [address] 12/07/19 Referral, Self Referring Physician 03/09/18 Blue Pacheco MD [address] DEPT OPHTHALMOLOGY, [address] [address] Surgeon Ophthalmology 11/27/23 documented as of this encounter
--- OUTSIDE RECORDS SUMMARY | 2024-10-12 11:07 | XMS_ITS | Clinical Summary ---
Author Organization [facility] Address [address] [facility] [place] [address] Care Team Providers Care Rn New Graduate Name Role Phone Osmani Zamorano MD Primary Care Provider [phone] [facility],non-owned Affiliates and Associated Physician Practices is amultiple site organization consisting of ambulatory clinics and hospital sitesin [place], [place], [place] and [place]. This disclosure is being madepursuant to the Care Everywhere program and may not contain all information available regarding this patient. Last updated 17.[facility] Allergies Active Allergy Reactions Criticality Noted Date [...] Description 08/22/2024 8:15 AM CDT Clinical Support [facility] [place] [id number] [facility], [facility] [address] [place] [address] Jordi Sharma MD Sick sinus syndrome due [...] AM CDT Legal Sex Male 11:31 AM STUDENT DEAN Gender Identity Male 09/16/2021 10:09 AM CDT [...] Description 11/21/2024 8:15 AM CDT Clinical Support [facility] [address] [facility], [address] [place] [address] [place] [address] [facility] [address] [place] [address] 11/25/2024 11:30 AM CDT Office Visit [facility] Care [address] [facility] [place] [address] Shantel Samuel, ENTERER-MISSILE INSPECTOR [address] [place] [address] Health Maintenance Due Date Last [...] dysfunction (HCC) from Last 3 Months Insurance [employer] MEDICARE [facility] INSURANCE [place] [address] [facility] SARAH GARCIA [id number] [facility] MEDICARE [place] [email or web address] [facility] MEDICARE Care Teams Rn New Graduate Relationship Specialty Start Date End Date Osmani Zamorano MD [address] [place] [address] [place] [address] PCP - General Family Medicine 05/24/21
[2024-10-12 11:16] LABS: INR 2.4; Prothrombin Time 25.6 Seconds (11.1-14.7)
[2024-10-12 11:17] LABS: Partial Thromboplastin Time 42.3 Seconds (22.3-36.8)
== END 2024-10-12 10:31 | disposition home or self-care (01) ==
LOC: ANHSURGERY 10:36
PROVIDERS: Anesthesiology; PCP Family Medicine; Visit Provider Orthopaedic Surgery
DX: Z01.818 Encounter for other preprocedural examination (principal); I10 Essential (primary) hypertension; N28.9 Disorder of kidney and ureter, unspecified; I48.91 Unspecified atrial fibrillation; I45.2 Bifascicular block; R94.31 Abnormal electrocardiogram [ECG] [EKG]
CPT/HCPCS: 36415; 85610; 85730; 93005

== ENCOUNTER 2024-10-17 00:49 | Day surgery (SDC) | payer MEDICARE, OTHER, SELFPAY ==
--- NOTE | 2024-10-03 14:37 | PC.NURSE ---
Report to the Outpatient Waiting Room, entrance under the green pavilion located off [facility], at time 8:30 AM on date __10/17/24 . Planned Procedure Time: _10:30 AM .? Time changes happen often and if your time is changed the preop area will call you the afternoon before. - You and your visitor will be asked to self-screen and do not enter if you have any COVID symptoms. Please call surgeon if you need to reschedule. - A mask is optional within the hospital at this time. Patients may have clear liquids (water, carbonated beverages, clear teas, apple juice) until 3 hours prior to surgery (7:30AM)with a maximum of 20 ounces. - No food from midnight until time of surgery and no smoking, or chewing tobacco (or any form of nicotine). No chewing gum, candy or mints. - Take only the following medications with a SIP of water on the morning of surgery: ____METOPROLOL DO NOT STOP ANY OF YOUR OTHER PRESCRIPTION MEDICATIONS PRIOR TO SURGERY EXCEPT THE FOLLOWING Hold all vitamins and supplements for 3 days per anesthesiologist.LAST DOSE 10/13/24 Medications to discontinue per physician XARELTO 5 DAYS PRE OP PER DR MAIER Date to take last dose__10/11/24 Please no make-up, nail maltese, hairspray, perfume, deodorant, or body powder the day of surgery.? No jewelry (including any body piercings) or valuables the day of surgery, leave them at home.? Please take a shower or bath the night before, or the morning of, surgery with an antibacterial soap.? Wear comfortable, loose fitting clothing.? Children are encouraged to wear pajamas. - Jewelry must be removed prior to entering the operating room.? Rings and piercings that are not removed may be cut off. - The hospital will not accept responsibility for valuables.? - Please leave all valuables, including medications, at home the day of surgery. If you are going home after surgery, a licensed ups driver must drive you home.? - NO public transportation without another adult if you receive anesthesia. - We recommend that an adult stay with you for 24 hours following discharge. - We also recommend that you do not drive, make important decision, drink alcoholic beverages, or take any drugs that were not prescribed by your health care provider for at least 24 hours after your discharge time. For Pediatric surgeries, we recommend two adults accompany the child home. Follow any additional instructions given to you from your surgeon. Telephone instructions given to _PATIENT and asked if any additional questions and then verbalized understanding. Patient advised to call surgeon office or pre surgery nurse liaison [phone] if any additional questions.
[2024-10-03 15:01] VITALS: BMI 29.7
--- NOTE | 2024-10-13 07:17 | PM.IMHP ---
H&P: HPI History of Present Illness Date/Time: 10/13/24 07:17 Chief Complaint: Patient presents with hand pain and numbness right. He has failed conservative treatment and he would like to consider carpal tunnel release. He has carpal tunnel syndrome. Review of Systems Musculoskeletal: Musculoskeletal: Reports arthralgias, Reports joint swelling and Reports stiffness PMFSH Past Medical History Medical History Obstructive sleep apnea on CPAP Paroxysmal atrial fibrillation Chronic anticoagulation Essential (primary) hypertension Anemia of chronic disease Bladder cancer high grade papillary urothelial carcinoma, noninvasive Vertigo migraine associated Personal history of malignant neoplasm of prostate Prediabetes Mixed hyperlipidemia Chronic kidney disease, stage 3a Surgical History Surgical History History of meniscectomy of right knee History of arthroscopy of right knee History of transurethral resection of bladder tumor (TURBT) History of cystoscopy History of cardiac pacemaker (2020) Family History Family History Mother Cerebrovascular accident Chronic obstructive pulmonary disease Grandparent Congestive heart failure Sibling Diabetes mellitus Hypertension Social History Social History Social History: Surrogate medical decision maker: Emilie Yin, spouse. Code status: Full code. Smoking packs per day: 1 Smoking cigarettes per day: 20.0 Years smoked: 30 Smoking pack-years: 30.00 Smoking status: Former smoker Tobacco type: cigarettes Second hand tobacco smoke exposure: No Smoking end date: 02/24/92 Alcohol intake: current Drinks per week: 7 Alcohol use details: 1 WINE/DAY Substance use: never Substance use type: does not use Do You Feel Safe in your Home?: Yes Lack of Transportation: No Lack of Food: Never True Current Housing: I Have Housing Concerned About Future Housing: No Difficulty Paying Gas/Electric Bills: No Difficulty Paying for Meds: No Currently Unemployed: No Education: Master's Degree or Higher Difficulty w/ Childcare or Family Care: No Living arrangements: with family Additional living arrangements comments: Lives with spouse in [place]. 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 Spiritual care concerns: No Meds Home Medications and Allergies Home Medications ?Medication ?Instructions ?Recorded ?Confirmed ?Type erenumab-aooe 140 mg/mL 140 mg subcut MONTHLY MIGRAINS 08/28/22 10/06/24 History subcutaneous auto-injector (Aimovig Autoinjector) rivaroxaban 20 mg tablet (Xarelto) 20 mg PO QPM 08/28/22 10/06/24 History metoprolol succinate 50 mg 25 mg PO Q12H 11/09/23 10/06/24 History tablet,extended release 24 hr magnesium oxide 500 mg capsule 500 mg PO DAILY 12/07/23 10/06/24 History rosuvastatin 40 mg tablet 40 mg PO HS 09/08/24 10/06/24 History nortriptyline 10 mg capsule 10 mg PO DAILY #90 caps 10/06/24 10/06/24 Rx ciprofloxacin HCl 500 mg tablet 500 mg PO Q12H 10 days #20 tabs 10/07/24 Rx metronidazole 500 mg tablet 500 mg PO TID #30 tabs 10/07/24 Rx Allergies Allergy/AdvReac Type Severity Reaction Status Date / Time oxybutynin (From Ditropan) AdvReac Hallucinating, Verified 10/06/24 14:07 VIVID DREAMING propanolol AdvReac Severe Chills, Uncoded 10/06/24 14:07 TREMORS Exam Narrative: On exam he has numbness and tingling in his right hand. He has a positive Phalen's and carpal tunnel compression test. He can wiggle his fingers but his hand falls asleep constantly. Eyes: General: appearance normal, both eyes and all related structures Neck: Neck: supple Resp: Effort & Inspection: normal respiratory effort Cardio: Rate: regular rate Rhythm: regular rhythm Assessment and Plan Assessment and plan (1) Carpal tunnel syndrome of right wrist: Code(s): G56.01 - Carpal tunnel syndrome, right upper limb Status: Acute Assessment and Plan: Patient has carpal tunnel syndrome right wrist. He has failed conservative treatment. He like to proceed with release. He understands that is not 100%. I discussed the risks, benefits, limitations, and alternatives the patient in detail. He understands and agrees. Will proceed with carpal tunnel release right.
[2024-10-17 09:10] VITALS: BP 131/69; PULSE 76; RESP 14; TEMP 36.1; O2SAT 99; BMI 30.4
[2024-10-17] MEDS: LACTATED RINGERS 1,000 ML 30 ML IV CONT (09:10)
[2024-10-17] MEDS: ACETAMINOPHEN 500 MG TABLET 1000 MG PO (09:15)
--- NOTE | 2024-10-17 09:23 | WPDANESEPPF ---
Anes - Initial Pre Proc Eval Procedure: Operation Date: 10/17/24 10:30 Proposed Procedures p Right Carpal Tunnel Release - Jordi Baeza MD Date/Time: 10/17/24 09:23 Surgeon: Jordi Baeza MD Pre Op Diagnosis: right tunnel syndrome Patient Data Age: 84 Gender: M Height: 1.7 m Weight: 86.2 kg Allergies Allergy/AdvReac Type Severity Reaction Status Date / Time propranolol AdvReac Intermediate Tremors/Chi Verified 10/17/24 09:20 lls oxybutynin (From Ditropan) AdvReac Hallucinating, Verified 10/06/24 14:07 VIVID DREAMING Home Medications ?Medication ?Instructions ?Recorded ?Confirmed ?Type erenumab-aooe 140 mg/mL 140 mg subcut MONTHLY MIGRAINS 08/28/22 10/06/24 History subcutaneous auto-injector (Aimovig Autoinjector) rivaroxaban 20 mg tablet (Xarelto) 20 mg PO QPM 08/28/22 10/06/24 History metoprolol succinate 50 mg 25 mg PO Q12H 11/09/23 10/06/24 History tablet,extended release 24 hr magnesium oxide 500 mg capsule 500 mg PO DAILY 12/07/23 10/06/24 History rosuvastatin 40 mg tablet 40 mg PO HS 09/08/24 10/06/24 History nortriptyline 10 mg capsule 10 mg PO HS 10/17/24 10/17/24 History Laboratory Tests 10/17/24 08:57 PT Pending INR Pending APTT Pending Patient hx anesthesia problems: none Family hx anesthesia problems: none Results Review: All pre-operative results and documents have been reviewed as part of the pre-operative evaluation. [facility] Past Medical History Medical History Obstructive sleep apnea on CPAP Paroxysmal atrial fibrillation Chronic anticoagulation Essential (primary) hypertension Anemia of chronic disease Bladder cancer high grade papillary urothelial carcinoma, noninvasive Vertigo migraine associated Personal history of malignant neoplasm of prostate Prediabetes Mixed hyperlipidemia Chronic kidney disease, stage 3a Surgical History Surgical History History of meniscectomy of right knee History of arthroscopy of right knee History of transurethral resection of bladder tumor (TURBT) History of cystoscopy History of cardiac pacemaker (2020) Family History Family History Mother Cerebrovascular accident Chronic obstructive pulmonary disease Grandparent Congestive heart failure Sibling Diabetes mellitus Hypertension Social History Social History Social History: Surrogate medical decision maker: Emilie Yin, spouse. Code status: Full code. Smoking packs per day: 1 Smoking cigarettes per day: 20.0 Years smoked: 30 Smoking pack-years: 30.00 Smoking status: Former smoker Tobacco type: cigarettes Second hand tobacco smoke exposure: No Smoking end date: 02/24/92 Alcohol intake: current Drinks per week: 7 Alcohol use details: 1 WINE/DAY Substance use: never Substance use type: does not use Do You Feel Safe in your Home?: Yes Lack of Transportation: No Lack of Food: Never True Current Housing: I Have Housing Concerned About Future Housing: No Difficulty Paying Gas/Electric Bills: No Difficulty Paying for Meds: No Currently Unemployed: No Education: Master's Degree or Higher Difficulty w/ Childcare or Family Care: No Living arrangements: with family Additional living arrangements comments: Lives with spouse in [place]. 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 Spiritual care concerns: No Anes - Eval Final PreProcedure Day of Procedure 10/17/24 09:23 Patient weight: overweight Heart: regular rate and rhythm Lungs: decreased breath sounds Airway: Mallampati scale class II Neurological: alert and oriented Last oral intake: >/= 8 hours ASA classification: III Emergent: no Anesthetic plan: proceed Anesthesia type and monitoring: general GIVS and standard monitoring Results Review: All pre-operative results and documents have been reviewed as part of the pre-operative evaluation. Informed Consent: The patient's anesthetic plan and its attendant risks and benefits were discussed with the patient/family/POA. Questions were solicited and answers provided to the satisfaction of the patient/family/POA.
[2024-10-17 09:28] LABS: INR 1.1; Prothrombin Time 14.0 Seconds (11.1-14.7)
[2024-10-17 09:29] LABS: Partial Thromboplastin Time 26.3 Seconds (22.3-36.8)
--- NOTE | 2024-10-17 09:41 | WPDHPUPDATE1 ---
History and Physical Update Update Date/Time: 10/17/24 09:41 History and Physical has been reviewed, including an updated exam of the patient. There are NO changes in the patient's condition. Risks, benefits, and alternatives have been discussed and questions answered. Patient agrees to proceed with procedure. Patient understands that there is no guarantee that he will get 100% relief.
[2024-10-17] MEDS: ceFAZolin 2 GM in SODIUM CHLORIDE 0.9% IV 50 ML 100 ML IVPB (10:27)
[2024-10-17] MEDS: LIDOCAINE 1% LOCAL INJ 10 ML VIAL 20 ML INFILTRATE (10:47)
--- NOTE | 2024-10-17 10:48 | P.OP_ITS ---
Procedure Note - Detailed Date of Procedure 10/17/24 Pre-op Diagnosis RIGHT Carpal Tunnel Syndromw Post-op Diagnosis Same Procedure Performed RIGHT carpal tunnel release Surgeon Jordi Baeza MD Anesthesia MAC Indications Pain and Numbness Description of Procedure A general anesthetic was administered. After sterile prep and drape, I injected the area of intended incision with 10ml of 1% lidocaine. A longitudinal incision was made in line with the ulnar boarder of the third finger. Dissection carried down to the fascia, the fascia split and the carpal ligament identified. The carpal ligament was released and the flexor retinaculum was released as well. The nerve was noted to be red purple in color and in continuity. The wound was irrigated, hemostasis was obtained and closed with 3- 0 prolene. Estimated Blood Loss 5 Drains No Packing No Pathology None sent Complications No immediate complications Condition Stable Disposition Same day [facility] Billing Surgery - Charge Forward: Surgery Billing ([id number] CTS)
[2024-10-17 11:01] VITALS: BP 108/56; PULSE 70; RESP 14; O2SAT 95
[2024-10-17 11:31] VITALS: BP 113/58; PULSE 67; RESP 14
[2024-10-17 12:01] VITALS: BP 125/52; PULSE 60; RESP 16
== END 2024-10-17 12:15 | disposition home or self-care (01) ==
PROVIDERS: Anesthesiology; PCP Family Medicine; Visit Provider Orthopaedic Surgery
PROC: (CPT 64721; principal; 2024-10-17 10:30)
DX: G56.01 Carpal tunnel syndrome, right upper limb (principal); E78.2 Mixed hyperlipidemia; G47.33 Obstructive sleep apnea (adult) (pediatric); I48.0 Paroxysmal atrial fibrillation; D63.8 Anemia in other chronic diseases classified elsewhere; E13.22 Other specified diabetes mellitus with diabetic chronic kidney disease; I12.9 Hypertensive chronic kidney disease with stage 1 through stage 4 chronic kidney disease, or unspecified chronic kidney disease; N18.31 Chronic kidney disease, stage 3a; Z79.01 Long term (current) use of anticoagulants; Z99.89 Dependence on other enabling machines and devices; Z98.890 Other specified postprocedural states; Z95.5 Presence of coronary angioplasty implant and graft; Z87.891 Personal history of nicotine dependence; Z85.51 Personal history of malignant neoplasm of bladder; Z85.46 Personal history of malignant neoplasm of prostate; Z82.49 Family history of ischemic heart disease and other diseases of the circulatory system
CPT/HCPCS: 64721; 36415; 85610; 85730; J0690; A9270; J2003; J3010; J7120

== ENCOUNTER 2024-11-11 18:20 | Emergency (ER) | payer MEDICARE, OTHER, SELFPAY ==
[2024-11-11 18:23] VITALS: PULSE 103; RESP 18; TEMP 36.6; O2SAT 97
[2024-11-11 19:32] VITALS: BP 143/72; O2SAT 96
[2024-11-11 19:35] LABS: Hematocrit 40.6 % (42.0-52.0); Hemoglobin 13.2 g/dL (14.0-18.0); Immature Granulocyte Percent A 0.7 % (0-0.5); Lymphocytes Absolute Auto 0.94 K/mm3 (0.9-3.2); Mean Corpuscular HGB Conc 32.5 g/dl (32-36); Mean Corpuscular Hemoglobin 28.6 pg (26-34); Mean Corpuscular Volume 88.1 fl (80-100); Nucleated Red Blood Cells Absolute Auto 0.000 K/mm3 (0.0-0.012); Nucleated Red Blood Cells Perc 0.0 % (0.0-0.2); Platelet Count Result 244 k/mm3 (150-375); Red Blood Count 4.61 M/mm3 (4.6-6.20); White Blood Count 7.0 K/mm3 (4.5-10.0)
[2024-11-11 19:47] VITALS: BP 130/78; O2SAT 95
[2024-11-11 19:49] LABS: Alanine Aminotransferase 28 U/L (6-50); Albumin Level 4.2 g/dL (3.5-5.1); Alkaline Phosphatase 91 U/L (38-126); Anion Gap 12 mmol/L (4-12); Aspartate Amino Transferase 41 U/L (17-59); Bilirubin,Total 0.3 mg/dL (0.2-1.3); Blood Urea Nitrogen 20 mg/dL (9-20); Calcium 9.0 mg/dL (8.4-10.2); Carbon Dioxide 21 mmol/L (22-30); Chloride 104 mmol/L (98-107); Estimated CRCL calculation 47 ml/min; Estimated Glomerular Filt Rate > 60; Glucose 106 mg/dL (65-110); Potassium 4.4 mmol/L (3.4-5.0); Sodium 137 mmol/L (137-145); Total Protein 7.7 g/dL (6.3-8.2)
--- OUTSIDE RECORDS SUMMARY | 2024-11-11 19:52 | XMS_ITS | Clinical Summary ---
Author Organization [facility] [address] [place] [address] Care Team Providers Care Web Developer Programmer Name Role Phone Osmani Zamorano MD Primary Care Provider [phone] Osmani Zamorano MD Unavailable [phone] Referral, Self Unavailable Unavailable YaakovchBlue MD Unavailable [phone] Allergies No known active allergies Medications rivaroxaban [...] 08/20/2020 Assessment & Plan (01/05/2024 3:19 PM SOUNDSCRIBER MECHANIC): Norman has a longstanding history of [...] is consulting with specialists Dr. Harden in [facility] Plan: 1. Headache diary 2. Preventative: [...] months Assessment & Plan (04/09/2022 11:32 AM SOUNDSCRIBER MECHANIC): Norman presents today with symptoms consistent [...] glaucoma. I recommended he check with his stained glass glazier helper regarding the possibility of taking a calcium channel jess. This may be beneficial. Alternatively, we may consider a medication like Aimovig. He is going to contact me after he talks to his stained glass glazier helper and I will write a prescription [...] today. Assessment & Plan (04/01/2018 8:30 AM SOUNDSCRIBER MECHANIC): By CD asymmetry. Does have lens [...] fall. Assessment & Plan (04/09/2022 11:33 AM SOUNDSCRIBER MECHANIC): Has ongoing balance concerns secondary to [...] balance and gait training. Persistent insomnia 07/26/2010 Surgical History Surgery Date Site/Laterality Comments CARDIAC [...] on file Legal Sex Male 2:00 AM SOUNDSCRIBER MECHANIC Gender Identity Male 12/19/2019 1:16 PM [...] 11/26/2024 11/27/2023 Medical Devices Implanted Type Area Dustless Operator Device Identifier Shelf Expiration Date Model / Serial / Lot Pacemaker Left: Chest Wall Insurance MEDICARE FOR LIFE [facility] MEDICARE SUPPLEMENT INSURANCE MEDICARE FOR [facility] MEDICARE SUPPLEMENT INSURANCE SARAH GARCIA [id number] [place] [address] [facility] [employer] LIFE [facility] MEDICARE SUPPLEMENT INSURANCE SARAH GARCIA [id number] MEDICARE Advance Directives For more information, please contact: [phone] * Full Code (Latest Code Status on File) Date Activated Date Inactivated Comments 01/30/2018 10:14 PM 01/31/2018 3:52 PM Care Teams Web Developer Programmer Relationship Specialty Start Date End Date Osmani Zamorano MD [address] [place] [address] PCP - General 12/07/19 Osmani Zamorano MD [address] [place] [address] 12/07/19 Referral, Self Referring Physician 03/09/18 Blue Pacheco MD [address] DEPT OPHTHALMOLOGY, [address] [address] Surgeon Ophthalmology 11/27/23
--- OUTSIDE RECORDS SUMMARY | 2024-11-11 19:52 | XMS_ITS | Encounter Summary ---
Author Organization [facility] Address [address] [place] [address] Phone Care Team Providers Care Highway Safety Engineer Name Role Phone Osmani Zamorano MD Primary Care Provider [phone] Osmani Zamorano MD Unavailable [phone] Referral, Self Unavailable Unavailable YaakovchBlue MD Unavailable [phone] Encounter Details Date Type Department Care Team [...] on file Legal Sex Male 2:00 AM AGENCY SERVICE COORDINATOR Gender Identity Male 12/19/2019 1:16 PM CDT [...] on filedocumented in this encounter Care Teams Highway Safety Engineer Relationship Specialty Start Date End Date Osmani Zamorano MD [address] [place] [address] PCP - General 12/07/19 Osmani Zamorano MD [address] [place] [address] 12/07/19 Referral, Self Referring Physician 03/09/18 Blue Pacheco MD [address] DEPT OPHTHALMOLOGY, [address] [address] Surgeon Ophthalmology 11/27/23 documented as of this encounter
--- OUTSIDE RECORDS SUMMARY | 2024-11-11 19:52 | XMS_ITS | Clinical Summary ---
Author Organization [facility] Address [address] [facility] [place] [address] Care Team Providers Care Device Engineer Name Role Phone Osmani Zamorano MD Primary Care Provider [phone] Source Comments [facility],non-owned Affiliates and Associated Physician Practices is amultiple site organization consisting of ambulatory clinics and hospital sitesin [place], [place], [place] and [place]. This disclosure is being madepursuant to the Care Everywhere program and may not contain all information available regarding this patient. Last updated 17.[facility] Allergies Active Allergy Reactions Criticality Noted Date [...] Description 08/22/2024 8:15 AM CDT Clinical Support [facility] [place] [id number] [facility], [facility] [address] [place] [address] Jordi Sharma MD Sick sinus syndrome due [...] AM CDT Legal Sex Male 11:31 AM CAN CLOSING MACHINE OPERATOR Gender Identity Male 09/16/2021 10:09 AM CDT [...] Description 11/21/2024 8:15 AM CDT Clinical Support [facility] Emergency Department [address] [facility], [address] [place] [address] [place] [address] [facility] [address] [place] [address] 11/25/2024 11:30 AM CDT Office Visit [facility] [address] [facility] [place] [address] Shantel Samuel, HELP DESK REP-SHOPPER MARKETING MANAGER [address] [place] [address] Health Maintenance Due Date Last Done Comments MEDICARE AWV 12 MONTHS 1942 DTAP/TDAP/TD VACCINES (1 - Tdap) 1961 PNEUMOCOCCAL VACCINE 50+ (1 of 1 - PCV) 1992 ZOSTER VACCINE (1 of 2) 1992 Respiratory Syncytial Virus (RSV) Vaccine Pt: or over 60 yrs (1 - 1-dose 75+ series) 2017 DEPRESSION SCREENING 02/24/2024 COVID-19 VACCINE ( - 2023-2 5 season) 2024 INFLUENZA VACCINE (#1) 2024 11/25/2021 HEPATITIS B [...] dysfunction (HCC) from Last 3 Months Insurance [employer]ANCE [employer] MEDICARE [facility] INSURANCE [place] [address] [facility] SARAH GARCIA [id number] [facility] MEDICARE [employer] [facility] MEDICARE Care Teams Device Engineer Relationship Specialty Start Date End Date Osmani Zamorano MD [address] [place] [address] [place] [address] PCP - General Family Medicine 05/24/21
--- OUTSIDE RECORDS SUMMARY | 2024-11-11 19:52 | XMS_ITS | Clinical Summary ---
Author Organization [facility] Address [facility] [place] [address] Care Team Providers Care Printed Circuit Board Panels Deburrer Name Role Phone Osmani Zamorano MD Primary Care Provider [phone] Allergies No known active allergies Medications HYDROcodone-acet [...] pacemaker in situ 05/26/2021 Paroxysmal atrial fibrillation ([facility]) 04/11/2021 Meniere's disease, cochleovestibular, active, le ft [...] Comments Blood Pressure 165/60 12/30/2022 1:52 AM MECHANICAL ENGINEERING TECHNOLOGIST Pulse 71 12/30/2022 1:52 AM MECHANICAL ENGINEERING TECHNOLOGIST Temperature 36.3 C (97.4 F) 12/30/2022 1:52 AM MECHANICAL ENGINEERING TECHNOLOGIST Respiratory Rate 18 12/30/2022 1:52 AM MECHANICAL ENGINEERING TECHNOLOGIST Oxygen Saturation 97% 12/30/2022 1:52 AM MECHANICAL ENGINEERING TECHNOLOGIST Inhaled Oxygen Concentration - - Weight 88.5 kg (195 lb) 12/30/2022 1:52 AM MECHANICAL ENGINEERING TECHNOLOGIST Height 170.2 cm (5' 7) 12/30/2022 1:52 AM MECHANICAL ENGINEERING TECHNOLOGIST Body Mass Index 30.54 12/30/2022 1:52 AM MECHANICAL ENGINEERING TECHNOLOGIST Plan of Treatment Health Maintenance Due Date Last Done Comments Zoster Vaccines (1 of 2) 1992 DTaP, Tdap and Td Vaccines ( 1 - Tdap) 06/21/1998 06/20/1998 Annual Medicare Wellness Visit 06/12/2007 Pneumococcal Vaccine: 50+ Years (2 of 2 - PPSV23) 07/13/2015 07/12/2014 RSV Immunization or 60+ Years (1 - 1-dose 75+ series) 2017 COVID-19 Vaccine ( - 2024-2 6 season) 2024 06/20/2021, 12/20/2020 Meningococcal B Vaccine Aged Out No l onger eligible based on patient's age to complete this topic Meningococcal Vaccine Aged Out No tonia arsh eligible based on patient's age to complete this topic RSV Immunizations Under 20 Months Aged Out No longer eligible b ased on patient's age to complete this topic Insurance MEDICARE [facility] [employer] [facility] Care Teams Printed Circuit Board Panels Deburrer Relationship Specialty Start Date End Date Osmani Zamorano MD [address] [place] [address] PCP - General FAMILY PRACTICE 08/21/21
[2024-11-11 19:59] LABS: Non Pathogenic Casts 0-2
--- NOTE | 2024-11-11 20:00 | ED.MALEGU ---
HPI - Male Genitourinary General Chief complaint: Urogenital-Male Stated complaint: Urethra blood clots Time Seen by Provider: 11/11/24 19:11 History of Present Illness HPI Narrative: Patient had a cystoscopy done earlier this morning with his urologist for his bladder cancer, he started having sensation of urinary retention and passing blood clots. Related Data Home Medications ?Medication ?Instructions ?Recorded ?Confirmed ?Last Taken ?Type erenumab-aooe 140 mg/mL 140 mg subcut MONTHLY MIGRAINS 08/28/22 11/01/24 02/14/23 History subcutaneous auto-injector (Aimovig Autoinjector) rivaroxaban 20 mg tablet (Xarelto) 20 mg PO QPM 08/28/22 11/01/24 10/11/24 History metoprolol succinate 50 mg 25 mg PO Q12H 11/09/23 11/01/24 10/17/24 History tablet,extended release 24 hr magnesium oxide 500 mg capsule 500 mg PO DAILY 12/07/23 11/01/24 09/07/24 History rosuvastatin 40 mg tablet 40 mg PO HS 09/08/24 11/01/24 10/17/24 History nortriptyline 10 mg capsule 10 mg PO HS 10/17/24 11/01/24 Unknown History Allergies Allergy/AdvReac Type Severity Reaction Status Date / Time propranolol AdvReac Intermediate Tremors/Chi Verified 11/11/24 19:20 lls oxybutynin (From Ditropan) AdvReac Hallucinating, Verified 11/11/24 19:20 VIVID DREAMING Review of Systems Review of Systems: All systems reviewed & are unremarkable except as noted in HPI and below PMFSH Past Medical History Medical History Obstructive sleep apnea on CPAP Paroxysmal atrial fibrillation Chronic anticoagulation Essential (primary) hypertension Anemia of chronic disease Bladder cancer high grade papillary urothelial carcinoma, noninvasive Vertigo migraine associated Personal history of malignant neoplasm of prostate Prediabetes Mixed hyperlipidemia Chronic kidney disease, stage 3a Surgical History Surgical History History of meniscectomy of right knee History of arthroscopy of right knee History of transurethral resection of bladder tumor (TURBT) History of cystoscopy History of cardiac pacemaker (2020) Family History Family History Mother Cerebrovascular accident Chronic obstructive pulmonary disease Grandparent Congestive heart failure Sibling Diabetes mellitus Hypertension Social History Social History (Updated 11/01/24 @ 09:07 by Karina Retana [facility]) Social History: Surrogate medical decision maker: Emilie Yin, spouse. Code status: Full code. Smoking packs per day: 1 Smoking cigarettes per day: 20.0 Years smoked: 30 Smoking pack-years: 30.00 Smoking status: Former smoker Tobacco type: cigarettes Second hand tobacco smoke exposure: No Smoking end date: 02/24/92 Alcohol intake: current Drinks per week: 7 Alcohol use details: 1 WINE/DAY Substance use: never Substance use type: does not use Current Housing: Decline to Answer Concerned About Future Housing: Decline to Answer Difficulty Paying Gas/Electric Bills: Decline to Answer Difficulty Paying for Meds: Decline to Answer Currently Unemployed: Decline to Answer Education: Decline to Answer Difficulty w/ Childcare or Family Care: Decline to Answer Living arrangements: with family Additional living arrangements comments: Lives with spouse in [place]. 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 Spiritual care concerns: No Exam Narrative: EXAMINATION OF ORGAN SYSTEMS/BODY AREAS: Constitutional: Vital signs per nursing GENERAL:[No acute distress, non-toxic appearing.] HEAD: Normal with no signs of head trauma. EYES: EOMI, conjunctiva normal ENT: Hearing grossly intact LUNGS: Nonlabored breathing. HEART: [Regular rate and rhythm] ABD: [Soft], [nontender to palpation] EXT: Normal range of motion : Normal appearing meatus SKIN: [No rashes or lesions.] NEURO: [Alert and oriented x 3. No gross focal sensory or strength deficits.] PSYCH: Normal affect Course Vital Signs Vital signs: Vital Signs Temperature 97.9 F 11/11/24 18:23 Pulse Rate 103 H 11/11/24 18:23 Respiratory Rate 18 11/11/24 18:23 Pulse Oximetry 97 11/11/24 18:23 Temperature 97.9 F 11/11/24 18:23 Pulse Rate 103 H 11/11/24 18:23 Respiratory Rate 18 11/11/24 18:23 Pulse Oximetry 97 11/11/24 18:23 MDM - Male Genitourinary MDM Narrative Medical decision making narrative: Patient had a cystoscopy done earlier this morning with his urologist for his bladder cancer, he started having sensation of urinary retention and passing blood clots. Thankfully since he arrived here, he is now urinating normally. Has no further issues with urination. Bladder scan shows residual volume 80 cc in his bladder. This is quite reassuring, basic labs are within acceptable limits, I discussed this with urologist on-call today, who recommends starting on antibiotics with close follow-up to see urologist and strict return precautions. Patient and at bedside agreeable to this plan. Lab Data 11/11/24 19:27 11/11/24 19:27 Labs: Lab Results 11/11/24 Range/Units 19:27 WBC 7.0 (4.5-10.0) K/mm3 RBC 4.61 (4.6-6.20) M/mm3 Hgb 13.2 L (14.0-18.0) g/dL Hct 40.6 L (42.0-52.0) % MCV 88.1 (80-100) fl MCH 28.6 (26-34) pg MCHC 32.5 (32-36) g/dl RDW 14.3 (11.5-14.5) % Plt Count 244 (150-375) k/mm3 MPV 8.3 (7.4-10.4) fl Immature Gran % (Auto) 0.7 H (0-0.5) % Neut % (Auto) 70.9 (45.5-73.1) % Lymph % (Auto) 13.5 L (18.3-44.2) % Deuel % (Auto) 9.9 H (2.6-8.5) % Eos % (Auto) 3.9 (0-4.4) % Baso % (Auto) 1.1 (0.2-1.2) % Lymph # (Auto) 0.94 (0.9-3.2) K/mm3 Deuel # (Auto) 0.7 H (0.1-0.6) K/mm3 Eos # (Auto) 0.3 (0-0.3) K/mm3 Baso # (Auto) 0.1 (0.0-0.1) K/mm3 Abs Immat Gran (auto) 0.05 H (0.00-0.031) K/mm3 Absolute Neuts (auto) 5.0 (1.3-6.7) K/mm3 Absolute Nucleated RBC 0.000 (0.0-0.012) K/mm3 Nucleated RBC % 0.0 (0.0-0.2) % Sodium 137 (137-145) mmol/L Potassium 4.4 (3.4-5.0) mmol/L Chloride 104 (98-107) mmol/L Carbon Dioxide 21 L (22-30) mmol/L Anion Gap 12 (4-12) mmol/L BUN 20 (9-20) mg/dL Creatinine 0.99 (0.7-1.3) mg/dL Estim Creat Clear Calc 47 ml/min Estimated GFR > 60 (59 - ) Glucose 106 (65-110) mg/dL Calcium 9.0 (8.4-10.2) mg/dL Total Bilirubin 0.3 (0.2-1.3) mg/dL AST 41 (17-59) U/L ALT 28 (6-50) U/L Alkaline Phosphatase 91 (38-126) U/L Total Protein 7.7 (6.3-8.2) g/dL Albumin 4.2 (3.5-5.1) g/dL Urine Color Light orange (Yellow) Urine Appearance Cloudy H (Clear) Urine pH 5.5 (5.0-9.0) Ur Specific Jackson 1.006 (1.001-1.035) Urine Protein 1+ H (Negative) mg/dL Urine Glucose (UA) Negative (Negative) mg/dL Urine Ketones Negative (Negative) mg/dL Ur Blood (Man) 3+ H (Negative) Urine Nitrate Negative (Negative) Urine Bilirubin Negative (Negative) Urine Urobilinogen 0.2 (<2.0) mg/dL Leukocyte Esterase Rfl Trace H (Negative) OLMAN/UL Urine RBC 51-100 H (0-2) /hpf Urine WBC 0-5 (0-3) /hpf Ur Squamous Epith Cells None seen (Few) /hpf Urine Bacteria None seen /hpf Urine Casts 0-2 Discharge Plan Discharge Clinical Impression: Gross hematuria Patient Disposition: Home Condition: Stable Instructions: Antibiotic Form, Hematuria (ED) Additional Instructions: Please call your urologist's office tomorrow to update them and follow-up with your urologist, start the antibiotics as prescribed. If you start having difficulty with urination or have more bleeding, please come back to the hospital. Patient Language: Moroccan Prescriptions: New sulfamethoxazole-trimethoprim [Bactrim DS] 800-160 mg tablet 1 tablet PO Q12H Qty: 10 0RF No Action Xarelto 20 mg tablet 20 mg PO QPM Aimovig Autoinjector 140 mg/mL auto-injector 140 mg subcut MONTHLY Rx Instructions: TAKES AROUND THE 1ST PART OF THE MONTH metoprolol succinate 50 mg tablet extended release 24 hr 25 mg PO Q12H nortriptyline 10 mg capsule 10 mg PO HS hydrocodone-acetaminophen 5-325 mg tablet 1 tablet PO Q4H PRN (Reason: pain) Qty: 30 0RF magnesium oxide 500 mg Capsule 500 mg PO DAILY rosuvastatin 40 mg tablet 40 mg PO HS Follow-up/Referrals: Osmani Zamorano MD [Primary Care Provider, Family Practice] Andrey Garcia MD [Physician, Urology] - 2 Days
[2024-11-11 20:01] VITALS: BP 158/91; O2SAT 98
[2024-11-11] MEDS: SULFAMETHOXAZOLE/TRIMETHOPRIM 800/160 MG DS TABLET 1 TAB PO (20:10)
[2024-11-11 20:32] VITALS: BP 139/64; O2SAT 96
[2024-11-11 20:47] LABS: Add Urine Microscopic? YES; Appearance Urine Cloudy (Clear); Glucose Urine UA Negative (Negative); Leukocyte Esterase Ur Trace LEU/UL (Negative); Nitrate Urine Negative (Negative); Specific Grav Ur 1.006 (1.001-1.035)
[2024-11-11 21:17] VITALS: BP 139/64; PULSE 96; RESP 18; O2SAT 96
== END 2024-11-11 21:13 | disposition home or self-care (01) ==
PROVIDERS: Emergency Provider Emergency Medicine; PCP Family Medicine
DX: R31.0 Gross hematuria (principal); Z98.890 Other specified postprocedural states
CPT/HCPCS: 36415; 80053; 81001; 85025; 99283; A9270